=== PATIENT | female | born 1980 | race Two or more races ===

== ENCOUNTER 2022-11-05 14:06 | Outpatient (OUT) | payer MEDICAID, SELFPAY ==
--- NOTE | 2022-11-05 14:19 | US_ITS ---
[address] [address] Patient Name: RICH WHITE MRN: [id number] date: 1980 Sex: F Assigned Patient Location: US Current Patient Location: US Accession/Order Number: [id number] Exam Date: 11/05/2022 14:20 Report Date: 11/05/2022 15:29 At the request of: SHAIKH KATARZYNA Procedure: US abdomen limited EXAM: US abdomen limited HISTORY: Umbilical hernia without obstruction K42.9 COMPARISON: None. TECHNIQUE: Limited ultrasound of the ventral abdomen, paraumbilical region FINDINGS and impression: There is a 2.6 x 2 x 1.1 cm hypoechoic area, just above the umbilicus, likely representing fat-containing subumbilical hernia with the aperture measures 0.9 cm. Electronically authenticated by: AMANDA PULLIAM Date: 11/05/2022 15:29
[2022-11-05 14:48] LABS: Basophils Percent Auto 0.6 % (0.2-2.0); Eosinophils Absolute Auto 0.1 10^3/uL (0.0-0.7); Eosinophils Percent Auto 2.7 % (0.9-7.0); Hematocrit 38.9 % (36.0-48.0); Hemoglobin 12.7 g/dL (12.0-16.0); Immature Granulocytes Abs Auto 0.01 10^3/uL (0.00-0.03); Immature Granulocytes Pct Auto 0.2 % (0.0-0.5); Lymphocytes Absolute Auto 1.7 10^3/uL (1.2-3.8); Lymphocytes Percent Auto 34.8 % (20.5-60.0); Mean Corpuscular HGB Conc 32.6 g/dL (29.9-35.2); Mean Corpuscular Hemoglobin 29.2 pg (26.7-34.0); Mean Corpuscular Volume 89.4 fL (81.0-99.0); Mean Platelet Volume 10.7 fL (9.5-13.5); Monocytes Absolute Auto 0.3 10^3/uL (0.3-0.8); Neutrophils Absolute Auto 2.7 10^3/uL (1.4-6.5); Neutrophils Percent Auto 54.7 % (43.0-75.0); Platelet Count 164 10^3/uL (150-450); Red Blood Count 4.35 10^6/uL (4.20-5.40); Red Cell Distribution Width 12.1 % (11.0-15.0); White Blood Count 4.9 10^3/uL (4.0-11.0)
[2022-11-05 15:45] LABS: Estimated Average Glucose 108 mg/dL; Glycohemoglobin A1C 5.4 % (4.5-6.2)
[2022-11-05 16:08] LABS: Alanine Aminotransferase 130 U/L (14-59); Albumin Globulin Ratio 0.9; Alkaline Phosphatase 64 U/L (46-116); Anion Gap 10.3; Aspartate Amino Transferase 75 U/L (15-37); BUN Creatinine Ratio 23.9; Bilirubin Total 0.3 mg/dL (0.2-1.0); Calcium 9.2 mg/dL (8.5-10.1); Carbon Dioxide 29.9 mmol/L (21.0-32.0); Chloride 104 mmol/L (98-107); Chol HDL Ratio 3.1; Cholesterol 168 mg/dL (<=200); Estimated GFR (African America >60 (>=60); Estimated GFR (Non-African Ame >60 (>=60); Globulin 4.3 g/dL; Glucose 94 mg/dL (74-106); HDL Cholesterol 55 mg/dL (40-60); LDL Cholesterol Calculated 99.4 mg/dL; Potassium 4.2 mmol/L (3.5-5.1); Sodium 140 mmol/L (136-145); Thyroid Stimulating Hormone 1.437 uIU/mL (0.358-3.740); Total Protein 8.3 g/dL (6.4-8.2); Triglycerides 68 mg/dL (<=150); VLDL CHOLESTEROL 13.6 mg/dL
[2022-11-06 04:07] LABS: Triiodothyronine (T3) 162 ng/dL (71-180)
== END 2022-11-05 14:07 | disposition home or self-care (01) ==
LOC: US 14:13
PROVIDERS: PCP Internal Medicine; Visit Provider Internal Medicine
DX: K42.9 Umbilical hernia without obstruction or gangrene (principal); Z13.1 Encounter for screening for diabetes mellitus; F41.1 Generalized anxiety disorder; F11.91 Opioid use, unspecified, in remission; K21.9 Gastro-esophageal reflux disease without esophagitis; Z13.220 Encounter for screening for lipoid disorders
CPT/HCPCS: 36415; 76705; 80053; 80061; 83036; 84436; 84443; 84480; 85025

== ENCOUNTER 2023-11-19 07:28 | Outpatient (OUT) | payer MEDICAID, SELFPAY | END 2023-11-19 07:29 | disposition home or self-care (01) | LOC: PST 07:28 | PROVIDERS: PCP Internal Medicine; Visit Provider Surgery | DX: Z01.818 Encounter for other preprocedural examination (principal); R10.9 Unspecified abdominal pain; K21.9 Gastro-esophageal reflux disease without esophagitis; K62.5 Hemorrhage of anus and rectum ==

== ENCOUNTER 2023-11-26 08:01 | Day surgery (SDC) | payer MEDICAID, SELFPAY ==
--- OUTSIDE RECORDS SUMMARY | 2023-11-26 08:04 | XMS_ITS | CCD ---
Author Organization [facility] Care Team Providers Care Stationary Boiler Fireman Name Role Phone Fabian Xiao Unavailable Unavailable Mummert, Fabian Unavailable Unavailable Medina, Amolak Hudson Unavailable Unavailable Medina, Amolak Hudson Unavailable Unavailable Medina, Amolak Hudson Unavailable Unavailable Medina, Amolak Hudson Unavailable Unavailable Frank Shrestha Attending Unavailable NONE, XXXX Primary Care Physician Unavailab helga Bush ([facility]), HEAD OF LOSS PREVENTION Kandis Veliz Attending Provider [facility] Primary Care Provider Eleazar ([facility])Kandis Attending Unavailstephani Bush ([facility]), Kandis Veliz [facility]mitting [facility] Unavailable ERICA BROWN Attending Unavailable VISCI, JENNIFER Weston Attending Unavailable VISCI, JENNIFER Weston Referring Unavailable VISCI, JENNIFER Weston Attending Unavailable VISCI, JENNIFER Weston Referring Unavailable VISCI, JENNIFER Weston Attending Unavailable Unavailable Unavailable Unavailable Medications Current Medications Medication Drug Class(es) Dates Sig (Normalized) Sig (Original) amoxicillin 875 mg oral tablet (1 source) Penicillin-class Antibacterial Start: 07-10-2022 End: 07-17-2022 take 1 tablet by mouth twice daily amoxicillin 875 mg Tab 875 mg = 1 tab(s), Oral, BID, X 7 day(s), # 14 tab(s), Refills(s) 0, Pharmacy: [facility], 170, cm, 07/10/22 20:44:00 EDT, Height/Length Dosing, 70.4, kg, 07/10/22 20:44:00 EDT, Weight Dosing Start Date: 07/10/22 Stop Date: 07/17/22 Status: Ordered Suboxone (1 source) Partial Opioid Agonist, Opioid Antagonist Start: 03-07-2019 Suboxone SubLingual, Daily, Refill(s) 0 Start Date: 03/07/19 Status: Ordered 12 hr carBAMazepine 100 mg extended release oral capsule (1 source) Mood Stabilizer Start: 07-10-2022 End: 07-17-2022 take 1 capsule by mouth twice daily carbamazepine 100 mg oral capsule, extended release 100 mg = 1 cap(s), Oral, BID, X 7 day(s), # 14 cap(s), Refills(s) 0, Pharmacy: [facility], 170, cm, 07/10/22 20:44:00 EDT, Height/Length Dosing, 70.4, kg, 07/10/22 20:44:00 EDT, Weight Dosing Start Date: 07/10/22 Stop Date: 07/17/22 Status: Ordered Completed/Discontinued Medications Medication Drug Class(es) Dates Sig (Normalized) Sig (Original) ibuprofen 800 mg oral tablet (1 source) Nonsteroidal Anti-inflammatory Drug Start: 12-16-2020 take 8-10 tablets by mouth every eight hours as needed ibuprofen 800 mg Tab 800 mg = 1 tab(s), Oral, q8hr, PRN Pain 8-10, # 21 tab(s), Refills(s) 0 Start Date: 12/16/20 Status: Ordered Problems Active Problems Problem Classification Problem Date Documented Date Episodic/Chronic Disorders of teeth and jaw (1 source) Disorder of teeth AND/OR supporting structures; Translations: [Other specified disorders of teeth and supporting structures] Onset: 07-10-2022 Episodic Mood disorders (1 source) Mood disorders Onset: 09-13-2016 Other nervous system disorders (1 source) Trigeminal neuralgia; Translations: [Trigeminal neuralgia] Onset: 07-10-2022 Episodic Substance-related disorders (1 source) Smoker 02-12-2016 Chronic Comment on above: Added secondary to d ocumentation in Social History. Unclassified (1 source) Cervicalgia / M54.2(ICD-10) Onset: 09-13-2016 Unclassified (3 sources) Opioid dependence with withdrawal / F11.23(ICD-10) Onset: 09-10-2016 Unclassified (1 source) Psoriasis, unspecified / L40.9(ICD-10) Onset: 09-13-2016 Unclassified (1 source) Dorsalgia, unspecified / M54.9(ICD-10) Onset: 09-13-2016 Unclassified (1 source) Nicotine dependence, unspecified, uncomplicated / F17.200(ICD-10) Onset: 09-13-2016 Unclassified (1 source) Cannabis abuse, uncomplicated / F12.10(ICD-10) Onset: 09-13-2016 Unclassified (1 source) Other chronic pain / G89.29(ICD-10) Onset: 09-13-2016 Unclassified (1 source) Encounter for screening mammogram for malignant neoplasm of breast; Translations: [Encounter for screening mammogram for malignant neoplasm of breast] Onset: 03-20-2023 Past or Other Problems Problem Classification Problem Date Documented Da te Episodic/Chronic Unclassified (1 source) Opioid dependence with withdrawal; Translations: [Opioid dependence with withdrawal] Onset: 09-10-2016 Results Test Name Value Interpretation Reference Range Facility MM screening mammo BI w/CADo n 03-20-2023 MM screening mammo BI w/CAD [facility] [place] [address] [place] [address] Mammography Report Signed Patient: Rich Salinas MR#: [id number] 9 : 1980 Acct:[id number] Age/Sex: 42 / F ADM Date: 03/20/23 Loc: [place] Room: Type: [facility] Attending Dr: Kandis Bush ([facility]) ANDRES Copies to: [facility] Kandis Bush APRN, WHCNP Ordering Provider: Kandis Bush APRN, WHCNP Date of Service: 03/20/23 MM/MM screening mammo BI w/CAD: SCREENING BILATERAL Screening Full Field digital mammogram with 3-D imaging. Full field digital CC and MLO imaging performed. CAD utilized. COMPARISON: 05/04/2003 HISTORY: Annual screening BREAST COMPOSITION: The breast parenchyma is heterogeneously dense. BENIGN BREAST CALCIFICATIONS: Present VASCULAR CALCIFICATIONS: None DEVELOPING ARCHITECTURAL DISTORTION: None DEVELOPING BREAST NODULE: None DEVELOPING MALIGNANT CALCIFICATIONS: None AXILLARY LYMPH NODES: Normal POSTSURGICAL CHANGES: None MM/MM screening mammo BI w/CAD IMPRESSION: No mammographic evidence of malignancy. Routine follow-up recommended in one year. RESULT CODE: 2 Benign Findings(s) DENSITY CODE: 3 (approximately 51-75% glandular) FOLLOW UP: 1YR THE FALSE-NEGATIVE RATE OF MAMMOGRAPHY IS APPROXIMATELY 10%. IMAGING OF A PALPABLE ABNORMALITY MUST BE BASED ON CLINICAL GROUNDS. PATIENT WAS ENTERED INTO A REMINDER SYSTEM WITH A TARGET DUE DATE FOR THE NEXT MAMMOGRAM. Impression dictated by: Serafin Aguila M.D.03/20/2023 4:00 PM Dictation Location: [facility] Transcribed By: [facility] 03/20/23 1600 Dictated By: Serafin Aguila DO 03/20/23 1559 Signed By: 03/20/23 1600 Normal [facility] US transvaginalon 03-20-[address] [facility] [place] [address] Ultrasound Report Signed Patient: Rich Salinas MR#: [id number] 9 : 1980 Acct:[id number] Age/Sex: 42 / F ADM Date: 03/20/23 Loc: [place] Room: Type: [facility] Attending Dr: Kandis Bush ([facility]) ANDRES Ordering Provider: Kandis Bush APRN, WHCNP Date of Service: 03/20/23 US/US pelvic complete: N95.1 ([id number]) US/US transvaginal: N95.1 Copies to: Kandis Bush APRN, WHCNP TRANSABDOMINAL AND TRANSVAGINAL PELVIC ULTRASOUND HISTORY: Left-sided pelvic pain. FINDINGS: The uterus measures 8.5 x 3.6 x 4.3 cm. Heterogeneous myometrium identified. Multiple nabothian cysts present. 16mm hypoechoic structure anterior mid uterus is suspected represent small fibroid. The endometrium has a total combined thickness of 7mm. The RIGHT ovary not visualized LEFT ovary measures 2.6 x 1.9 x 2.4 cm 18 mm anechoic left ovarian cysts cyst. Bilateral ovarian blood flow identified. No free fluid identified. There is no adnexal mass identified. US/US pelvic complete IMPRESSION: 18 mm left ovarian cyst. No free fluid. Nonvisualization of the right ovary. Adequate flow left ovary. Suspect small anterior mid uterine fibroid. Impression dictated by: Serafin Aguila M.D.03/20/2023 4:39 PM Dictation Location: [place] [address] Tech: Ame Scherer Transcribed By: [facility] 03/20/23 1639 Dictated By: Serafin Aguila DO 03/20/23 1636 Signed By: 03/20/23 1639 Normal [facility] Discharge Instructionson Discharge Instructions [id number]:[address] [facility] Consent for Treatmenton 06-12 Consent for Treatment [id number]:[address] [facility] ED Clinical Summaryon 2022 ED Clinical Summary [place] [id number] ED Clinical Summary Person Information Name: RICH SALINAS/[facility] Age: 41 Years : 1980 Sex: Female Language: Burmese PCP: NONE, XXXX Marital Status: Single Phone: [phone] Visit Id: Visit Reason: Facial pain; DENTAL PAIN Speciality: Acuity: 4 Enc Type: Emergency Med Service: Emergency Arrival: 07/10/2022 20:35:39 Discharge: 07/10/2022 21:27:35 LOS: 000 00:52 Checkin: 07/10/2022 20:35:39 Checkout: 07/10/2022 21:27:35 Dispo Type: Home (Routine DC) EVENTS: Event Name Event Status Request Date/Time Start Date/Time Complete Date/Time Arrive Complete 07/10/2022 20:35:39 07/10/2022 20:35:39 07/10/2022 20:35:39 Document Home Meds Request 07/10/2022 20:35:39 Triage Complete 07/10/2022 20:35:39 07/10/2022 20:44:17 07/10/2022 20:44:17 Registration Complete 07/10/2022 20:39:14 07/10/2022 20:39:14 07/10/2022 20:39:14 Reg Complete Request 07/10/2022 20:39:14 Reg Bed Request Complete 07/10/2022 20:39:14 07/10/2022 20:39:14 07/10/2022 20:39:14 Bed Assign Complete 07/10/2022 20:44:24 07/10/2022 20:44:24 07/10/2022 20:44:24 Dr Exam Complete 07/10/2022 20:44:24 07/10/2022 20:53:43 07/10/2022 20:53:43 RN Exam Complete 07/10/2022 20:44:24 07/10/2022 20:51:03 07/10/2022 20:51:03 Registration Request 07/10/2022 20:53:43 Meds Admin Complete 07/10/2022 21:12:46 07/10/2022 21:18:58 Discharge Complete 07/10/2022 21:22:29 07/10/2022 21:27:39 07/10/2022 21:27:39 Transfer Complete 07/10/2022 21:27:39 07/10/2022 21:27:39 07/10/2022 21:27:39 ADDRESS: [address] [place] [phone] PHYS DOC NOTES: MEDICAL INFORMATION: Prescriptions Given: New Medications [facility], [address] [place], [place] [id number], [phone] amoxicillin (amoxicillin 875 mg Tab) 1 Tablets By Mouth 2 times a day for 7 Days. Refills: 0. carbamazepine (carbamazepine 100 mg oral capsule, extended release) 1 Capsules By Mouth 2 times a day for 7 Days. Refills: 0. Medications to Continue with No Changes Other Medications buprenorphine-naloxone (Suboxone) Sublingual every day. ibuprofen (ibuprofen 800 mg Tab) 1 Tablets By Mouth every 8 hours as needed Pain 8-10. Refills: 0. PATIENT EDUCATION INFORMATION: Instructions: Trigeminal Neuralgia Follow up: With: Address: When: [address] [id number] Business (1) In 3 days 07/13/2022 With: Address: When: Erik Menjivar [address] [facility], [place] [address] In 3 days 07/13/2022 DIAGNOSIS: Pain, dental; Trigeminal neuralgia Normal [facility] ED Note-Physicianon 07-11-19 ED Note-Physician Basic Information Time Seen: Frank Shrestha DO 07/10/2022 20:53 Chief Complaint right sided facial pain. states her glands are swollen History of Present Illness HPI: Patient is a 41-year-old female with history of tobacco use who presents to the ED for right facial pain. Patient states this started yesterday has been worsening. She states that she felt like her jaw was swollen but it is improved took ibuprofen at home today. She states that the pain is around her right ear and jaw and her right lower face. She states that she had a flareup like this once before and they thought it was something with her nerve but she is unsure. She denies any fever or chills. She denies any difficulty swallowing. ROS: Pertinent review of systems conducted and is negative except as noted above. Physical exam: General: nontoxic appearing and in no distress HEENT: Mucous membranes moist. TMs clear bilaterally. She has poor dentition throughout. Posterior pharynx is patent. Mild tenderness of the right lower face anterior to the ear Neuro: awake and alert Neck: supple, trachea midline Card: Heart regular rate and rhythm no murmur Resp: Lungs clear to auscultation no wheeze or rhonchi Abd: Soft and nondistended. No tenderness to palpation with no rebound or guarding. Ext: No gross deformity or edema Physical Exam Vitals & Measurements T: 36.5 ?C(Tympanic) HR: 101(Peripheral) RR: 20 BP: 144/87 SpO2: 99% HT: 170 cm WT: 70.4 kg BMI: 24.36 Medical Decision Making MEDICAL DECISION MAKING Number and Complexity of Problems Differential Diagnosis: [] [facility] Data External documents reviewed: N/A My EKG interpretation: Noted in chart if applicable My CT interpretation: N/A My X-ray interpretation: Noted in chart if applicable My Ultrasound interpretation: N/A Decision rules/scores evaluated: N/A Discussed with: N/A Treatment and Disposition ED Course: Patient is well-appearing and in no distress. She has a throbbing pain of her right lower face that I suspect is likely from a trigeminal neuralgia. She does have some globally poor dentition so I think covering her for possible odontogenic source of discomfort with amoxicillin is prudent. We will also start her on the carbamazepine. We will have her follow-up with her primary care physician which will provide her and we will also give her a backup plan of the [facility]. We will give her a dose of both of these medications here tonight until she can get the prescriptions filled tomorrow. Shared decision making: As above Code status: N/A Assessment/Plan Pain, dental (K08.89: Other specified disorders of teeth and supporting structures) Trigeminal neuralgia (G50.0: Trigeminal neuralgia) Orders: amoxicillin, 875 mg = 1 tab(s), Tab, Oral, Once, Stop date 07/10/22 21:12:00 EDT, STAT, Start date 07/10/22 21:12:00 EDT, 07/10/22 21:12:00 EDT carbamazepine, 100 mg = 1 tab(s), Tab-Chew, Oral, Once, Stop date 07/10/22 21:12:00 EDT, STAT, Start date 07/10/22 21:12:00 EDT, 07/10/22 21:12:00 EDT Disposition Plan Discharge Prescription List Prescriptions No active prescription medications Follow-up With When Contact Information [facility] In 3 days 07/13/2022 EDT [address] [place] [address]- Business (1) Additional Instructions: Erik Menjivar In 3 days 07/13/2022 EDT [address] [place] [address]- Additional Instructions: Patient Education Trigeminal Neuralgia Problem List/Past Medical History Ongoing Smoker Historical Tonsillectomy Medications Inpatient amoxicillin 875 mg Tab, 875 mg= 1 tab(s), Oral, Once carBAMazepine 100 mg Chew Tab, 100 mg= 1 tab(s), Oral, Once Home ibuprofen 800 mg Tab, 800 mg= 1 tab(s), Oral, q8hr, PRN Suboxone, SubLingual, Daily Allergies No Known Allergies Social History Substance Abuse - High Risk, 03/07/2019 Current, Cocaine, Marijuana, 03/07/2019 Tobacco - High Risk, 03/07/2019 10 or more cigarettes (1/2 pack or more)/day in last 30 days Tobacco Use:. Cigarettes, 03/07/2019 Current Every Day Smoker, Cigarettes, 09/15/2016 Current, Cigarettes, 30 per day., 02/24/2010 Lab Results No qualifying data available. Diagnostic Results No qualifying data available. Normal [facility] Comment on above: Result Comment: Elec tronically Signed By: Frank Shrestha DO\.br\Date and Time Signed: 07/10/22 21:16 EDT ED Patient Education Noteon 07-10-2022 ED Patient Education Note Neurology Trigeminal Neuralgia Trigeminal neuralgia is a nerve disorder that causes severe pain on one side of the face. The pain may last from a few seconds to several minutes, but it can happen hundreds of times a day. The pain is usually only on one side of the face. Symptoms may occur for days, weeks, or months and then go away for months or years. The pain may return and be worse than before. What are the causes? This condition may be caused by: ? Damage or pressure to a nerve in the head that is called the trigeminal nerve. An attack can be triggered by: ? Talking or chewing. ? Putting on makeup. ? Washing, shaving, or touching your face. ? Brushing your teeth. ? Blasts of hot or cold air. ? Primary demyelinating disorders, such as multiple sclerosis. ? Tumors. What increases the risk? You are more likely to develop this condition if: ? You are 50?60 years old. ? You are female. What are the signs or symptoms? The main symptom of this condition is severe pain in the jaw, lips, eyes, nose, scalp, forehead, and face. How is this diagnosed? This condition is diagnosed with a physical exam. A CT scan or an MRI may be done to rule out other conditions that can cause facial pain. How is this treated? This condition may be treated with: ? Measures to avoid the things that trigger your symptoms. ? Prescription medicines such as anticonvulsants. ? Procedures such as ablation, thermal, or radiation therapy. ? Cognitive or behavioral therapy. ? Complementary therapies such as: ? Gentle, regular exercise or yoga. ? Meditation. ? Aromatherapy. ? Acupuncture. ? Surgery. This may be done in severe cases if other medical treatment does not provide relief. It may take up to one month for treatment to start relieving the pain. Follow these instructions at home: Managing pain ? Learn as much as you can about how to manage your pain. Ask your health care provider if a pain specialist would be helpful. ? Consider talking with a mental health care provider about how to cope with the pain. ? Consider joining a pain support group. General instructions ? Take xupm-llr-jogmppe and prescription medicines only as told by your health care provider. ? Avoid the things that trigger your symptoms. It may help to: ? Chew on the unaffected side of your mouth. ? Avoid touching your face. ? Avoid blasts of hot or cold air. ? Keep all follow-up visits. Where to find more information ? Facial Pain Association: facepain.org Contact a health care provider if: ? Your medicine is not helping your symptoms. ? You have side effects from the medicine used for treatment. ? You develop new, unexplained symptoms, such as: ? Double vision. ? Facial weakness or numbness. ? Changes in hearing or balance. ? You feel depressed. Get help right away if: ? Your pain is severe and is not getting better. ? You develop suicidal thoughts. If you ever feel like you may hurt yourself or others, or have thoughts about taking your own life, get help right away. Go to your nearest emergency department or: ? Call your local emergency services (373 in the [place] ? Call a suicide crisis helpline, such as the National Suicide Prevention Lifeline at or 980 in the [place] This is open 24 hours a day in the [place] ? Text the Crisis Text Line at 214132 (in the [place] Summary ? Trigeminal neuralgia is a nerve disorder that causes severe pain on one side of the face. The pain may last from a few seconds to several minutes. ? This condition is caused by damage or pressure to a nerve in the head that is called the trigeminal nerve. ? Treatment may include avoiding the things that trigger your symptoms, taking medicines, or having procedures or surgery. It may take up to one month for treatment to start relieving the pain. ? Keep all follow-up visits. This information is not intended to replace advice given to you by your health care provider. Make sure you discuss any questions you have with your health care provider. Document Revised: 08/23/2021 Document Reviewed: 07/23/2021 Elsevier Patient Education ? 2022 [employer] Normal [facility] ED Patient Summaryon 023 ED Patient Summary [address] [address] Patient Discharge Instructions Person Information Name: RICH SALINAS Age: 41 Years Arrival Date: 07/10/2022 20:35:39 Discharge Diagnosis: Pain, dental; Trigeminal neuralgia Primary Care Physician: NONE, XXXX Provider Information Primary Provider: Frank Shrestha DO Advanced Jewel[employer] Bearing Maker:Joshua The exam and treatment you received in the Emergency Department were for an urgent problem and are not intended as complete care. It is important that you follow up with a doctor, nurse practitioner, or physician?s assistant food service director for ongoing care. If your symptoms become worse or you do not improve as expected and you are unable to reach your usual health care provider, you should return to the Emergency Department. We are available 24 hours a day. RICH SALINAS has been given the following list of patient education materials, prescriptions and follow-up instructions: Follow-up Instructions: With: Address: When: [employer] [address] [place] [address] [facility] () In 3 days 07/13/2022 With: Address: When: Erik Menjivar [address] [facility] [place] [address] In 3 days 07/13/2022 In the event that this physician does not participate in your insurance network, please consult with your insurance company to find a nearby participating provider. Patient Education Materials: Trigeminal Neuralgia A MESSAGE TO ALL PATIENTS REGARDING OPIOIDS PRESCRIPTION OPIOIDS: WHAT YOU NEED TO KNOW Prescription opioids can be used to help relieve bysfmaeh-eb-runljm pain and are often prescribed following a surgery or injury, or for certain health conditions. These medications can be an important part of the treatment but also come with serious risks. It is important to work with your healthcare provider to make sure you are getting the safest, most effective care. WHAT ARE THE RISKS AND SIDE EFFECTS OF OPIOID USE? Prescription opioids carry serious risks of addiction and overdose, especially with prolonged use. An opioid overdose, often marked by slowed breathing, can cause sudden . The use of prescription opioids can have a number of side effects as well, even when taken as directed: ? Tolerance?meaning you might need to take more of the medication for the same pain relief ? Physical dependence?meaning you have symptoms of withdrawal when a medication is stopped ? Increased sensitivity to pain ? Constipation ? Nausea, vomiting, and dry mouth ? Sleepiness and dizziness ? Confusion ? Depression ? Low levels of testosterone that can result in lower sex drive, energy, and strength ? Itching and sweating RISKS ARE GREATER WITH: ? History of drug misuse, substance use disorder, or overdose ? Mental health conditions (such as depression or anxiety) ? Sleep apnea ? Older age (65 years and older) ? Avoid alcohol while taking prescription opioids. Also, unless specifically advised by your health care provider, medications to avoid include: ? Benzodiazepines (such as Xanax or Valium) ? Muscle relaxants (such as Soma or Flexeril) ? Hypnotics (such as Ambien or Lunesta) ? Other prescription opioids KNOW YOUR OPTIONS Talk to your health care provider about ways to manage your pain that don?t involve prescription opioids. Some of these options may actually work better and have fewer risks and side effects. Options may include: ? Pain relievers such as acetaminophen, ibuprofen, and naproxen ? Some medication that are also used for depression or seizures ? Physical therapy and exercise ? Cognitive behavioral therapy, a psychological, goal-directed approach, in which patients learn how to modify physical, behavioral, and emotional triggers of pain and stress. IF YOU ARE PRESCRIBED OPIOIDS FOR PAIN: ? Never take opioids in greater amounts or more often than prescribed. ? Follow up with your primary health care provider. o Work together to create a plan on how to manage your pain. o Talk about ways to help manage your pain that don?t involve prescription opioids. o Talk about any and all concerns and side effects. ? Help prevent misuse and abuse o Never sell or share prescription opioids. o Never use another person?s prescription opioids. ? Store prescription opioids in a secure place and out of reach of others (this may include visitors, children, friends, and family). ? Safely dispose of unused prescription opioids: Find your community drug take-back program or your pharmacy mail-back program, or flush them down the toilet, following guidance from the Food and Drug Administration (www.fda.gov/Drugs/ResourcesFo rYou). ? Visit www.cdc.gov/drugoverdose to learn about the risks of opioids abuse and overdose. ? If you believe you may be struggling with addiction, tell your health chronic care nurse and (more content not included)... Normal [facility] Discharge Summaryon 05-23-19 18 Discharge Summary MR#: [id number] [facility] [facility] Pt. Name: Rich Salinas Admitted: 04/19/2017 Discharged: 04/19/2017 Date of : 1980 Physician: Bruno Mishra MD DISCHARGE SUMMARYREASON FOR ADMISSION: To detox unit, opioid dependence, and activewithdrawal.HISTORY OF PRESENT ILLNESS: The patient is a 36-year-old female whopresented to [facility] due to concerns about severe opioid dependenceand active withdrawal. The patient reported that she has been abusingOxyContin daily about 4 tablets of 40 mg each orally. The patient reportedthat she has been using it for the last 15 years. The patient reportedmultiple unsuccessful attempts to stop abusing opioids. The patientreported severe problems and withdrawal from opioids. The patient reportedthat most of her time is spent on obtaining the drugs, using her drugs, andrecovering from the effect of drugs. The patient reported that her lifehas been severely and adversely affected by the opioid use including lossof job and apartment recently.HOSPITAL COURSE: The patient was admitted to [facility] Detox Unit on April. Before the patient could be evaluated by the psychiatrist or themedical consult team, the patient decided that she wants to leave againstmedical advice. The patient was counseled in detail by the nursing staffabout risk of leaving against medical advice including overdosing on drugsand possible threat to her life. The patient verbalized her understandingand still wanted to leave against medical advice.DISCHARGE DISPOSITION: The patient left against medical advice and nofollowup treatment planning could be done.Electronically Signed by:Bruno Mishra MD 05/22/2017 10:56 A ARCHANA Herreraate Dict: 05/21/2017/06:54 P/Bruno Mishra MDDate Trans: 05/22/2017 04:41 A/mmoDN_JN:[id number] Normal [facility] Medication Managementon 03-13 Medication Management Entered by Karla Salinas LPN on March 31, 2017 10:30:51 EST From: Karla Salinas LPNTo: [facility] [place]Sent: 03/31/2017 10:30:51 ESTSubject: Medication Management Not Approved: Patient needs appointment escitalopram (ESCITALOPRAM OXALATE 10 MG TABLET) TAKE 1 TABLET BY MOUTH DAILYQty: 30 tab(s) Days Supply: 30 Refills: 0Substitutions Allowed Route To Pharmacy - [facility] [place]Signed by Karla Salinas LPN From: [facility] [place]To: Ninoska GARCIA Fabian DOSent: March 29, 2017 1:43:55 PM CSTSubject: Medication ManagementDue: March 30, 2017 1:43:55 PM PUBLIC HEALTH PROGRAM MANAGER On Hold Pending Signature Drug: escitalopram (Lexapro 10 mg oral tablet) TAKE 1 TABLET BY MOUTH DAILYQuantity: 30 EA Days Supply: 0 Refills: 0Substitutions AllowedNotes from Pharmacy:Dispensed Drug: escitalopram (escitalopram 10 mg oral tablet) TAKE 1 TABLET BY MOUTH DAILYQuantity: 30 tab(s) Days Supply: 30 Refills: 0Substitutions AllowedNotes from Pharmacy: [facility] Outside Recordson 11-19-2016 Outside Records [id number] [facility] Ambulatory Patient Summaryon 10-21-2016 Ambulatory Patient Summary Fabian Xiao DO [address] [place], [place] [phone] Summary For RICH Patel would like to thank you for allowing us to assist you with your healthcare needs. Our entire staff strives to provide an excellent experience for our patients and their families. The following includes information regarding your visit. Age: 36 years Sex: FEMALE : 1980 Address: [address] [place] [address] Home: Work: -- Mobile: -- Primary Care Provider: Fabian Xiao DO Race: White Ethnicity: Not or Language: Burmese Health Plan: 1?MEDICAID PARAMOUNTReason for Visit: Referral and Consult Requests this Visit No Referral or Consults documentedFuture Appointments CARLOS Xiao Phone: -- Fax: -- Appt. Date: 10/31/2016 10:30 AM Scheduled Provider: Fabian Xiao DO Future Orders No future ordersAdditional Goals and Instructions:Follow-Up InformationAllergies No known allergies Vitals and Measurements this Visit (last charted value for your 10/21/2016 visit) Vital Signs This Visit Peripheral Pulse Rate: 88 bpm Systolic Blood Pressure: 150 mmHg Diastolic Blood Pressure: 88 mmHg SpO2: 98 % Measurements This Visit Height: 168.91 cm Weight: 57.6 kg Body Mass Index: 20.19 kg/m2 BSA Measured: 2 [id number] Status 10 or more cigarettes (1/2 pack or more)/day in last 30 daysProcedures Tonsillectomy Problems and Health Issues H/O: drug dependency Mixed anxiety and depressive disorder SmokerDiagnoses This Visit Depression with anxiety (F41.8) H/O irritable bowel syndrome (Z87.19) History of narcotic addiction (F11.21) Smoker (F17.200)Laboratory or Other Results This Visit (last charted value for your 10/21/2016 visit) No Laboratory or Other Results This Visit Medications and Immunizations Administered During This Visit No medication administered during this visit All Known Current Prescriptions and Reported Medications New Prescriptions this Visit Lexapro 10 mg oral tablet (escitalopram) Take 1 tab(s)(10 Milligram) Oral every day, 5 refills authorized Vistaril 25 mg oral capsule (hydrOXYzine) Take 1 cap(25 Milligram) Oral 4 times a day for anxiety, 0 refills authorized Prescriptions No previous prescriptions documented Home Medications No reported medications documentedNew MedicationsDisc[facility], [address] [place] [address], [phone] (Vistaril 25 mg oral capsule) 1 cap Oral 4 times a day as needed for anxiety. Refills: 0.Medications That Were Updated - Follow Below InstructionsDiscount [facility], [address] [place] [address], [phone]: escitalopram (Lexapro 10 mg oral tablet) 1 tab(s) Oral every day. Refills: 5.No Longer Take the Following MedicationsoxyMORphone (Opana ER 40 mg oral tablet, extended release) 1 tab(s) Oral every 12 hours. Normal [facility] Office/Clinic Noteon 017 Office/Clinic Note Patient: RICH SALINAS MRN: 11 : 36 years Sex: FEMALE : [birth year]Associated Diagnoses: Depression with anxiety; H/O irritable bowel syndrome; History of narcotic addiction; SmokerAuthor: Renaldo Xiao DO Nruntojck99/11/17 14:29 EDT establish new patient, reports h/o Drug addiction depression,hair loss,uti, endometriosis simplex,eczema,psoriasis,arthr itis,migraneherpes wants blood work done (Modified)History of Present IllnessLexapro - ran out. Was given this [facility]. Only seen once. Only given one month supply. This helped when she was on it. Sleeps poorly. She had blood work done at when she was in detox at [facility]. Sep 10-. Since then she is on Opana off of the street. 40-80 mg daily. Maximum - was 3-4 40 mg Opana. Has tried IV drugs in her 20's. Thyroid was low, sugar was high. Living in [place] currently. Works at [employer] in [place]. Does not like suboxone - stays up at night. Notes she has been on clonidine in the past, but did not help. Has been on clonazepam which did allow her to stop the Opana, but was given it from a friend. Has high anxiety issues. Has panic attcks. Lexapro does help the panic attacks. The pt is concerned about public information regarding her health. Did not fill the suboxone. Was in [facility] in the past with no help. She has trazodone, but causes palpitations (50 mg).Review of SystemsConstitutional: No fever, No chills, No sweats, No weakness, No fatigue.Eye: No recent visual problem.Ear/Nose/Mouth/Throat: No decreased hearing, No nasal congestion.Respiratory: No shortness of breath, No cough, No sputum production, No wheezing.Cardiovascular: No chest pain, No palpitations, No bradycardia, No tachycardia, No peripheral edema.Gastrointestinal: No nausea, No vomiting, No diarrhea, No constipation, No heartburn.Genitourinary: No dysuria, No hematuria, No change in urine stream.Hematology/Lymphatics: No bruising tendency, No swollen lymph glands.Endocrine: No excessive thirst, No cold intolerance, No heat intolerance.Immunologic: No recurrent fevers, No recurrent infections.Musculoskeletal: No back pain, No neck pain, No joint pain, No muscle pain.Integumentary: No rash, No skin lesion.Neurologic: Alert and oriented X4, No confusion, No numbness, No tingling, No headache.Psychiatric: No anxiety, No depression, Not suicidal.Health StatusAllergies:Allergic Reactions (Selected)No known allergies,Allergies (1) Active ReactionNo known allergies None DocumentedCurrent medications: (Selected)PrescriptionsPrescri bedLexapro 10 mg oral tablet: 1 tab(s) ( 10 mg ), PO, Daily, # 30 tab(s), 5 Refill(s), Pharmacy: [facility], 1 tab(s) PO DailyVistaril 25 mg oral capsule: 1 cap(s) ( 25 mg ), PO, QID, PRN: for anxiety, # 40 cap(s), 0 Refill(s), 11/21/16, Pharmacy: [facility], 1 cap(s) PO QID,PRN:for anxietyDocumented MedicationsDocumentedOpana ER 40 mg oral tablet, extended release: 1 tab(s) ( 40 mg ), PO, q12hr (int), 0 Refill(s)escitalopram 10 mg oral tablet: 0 Refill(s),Home Medications (4) Activeescitalopram 10 mg oral tabletLexapro 10 mg oral tablet 10 mg = 1 tab(s), PO, DailyOpana ER 40 mg oral tablet, extended release 40 mg = 1 tab(s), PO, q12hr (int)Vistaril 25 mg oral capsule 25 mg = 1 cap(s), PRN, PO, QIDProblem list (past medical history):All ProblemsSmoker / IMO 500002 / ConfirmedHistory of narcotic addiction / SNOMED CT 825736972 / ConfirmedDepression with anxiety / SNOMED CT 341825446 / Confirmed,Active Problems (3)Depression with anxietyHistory of narcotic addictionSmokerHistoriesFamily History:Genital organGrandmother (Maternal)CA - Breast cancerGrandmother (Maternal)AnxietyMotherFatherH eart murmurMotherCA - Lung cancerGrandmother (Maternal)Grandfather (Maternal)Grandfather (Paternal)Grandmother (Paternal)Rheumatoid arthritisFatherHypothyroidismG randmother (Maternal)High blood pressureMotherFatherBipolar disorderFatherHeart attackGrandmother (Maternal)DepressionMotherFath erSisterHepatitis CFatherDiverticulitis of colonFatherCardiac arrestGrandmother (Maternal)CHF (congestive heart failure)....Grandfather (Maternal)Kidney stones....SisterPsoriasis....F atherProcedure history:Tonsillectomy (SNOMED CT 253356211).Social HistorySocial & Psychosocial HabitsAlcohol Comment: denies - 10/21/2016 16:15 - Sharlene Rodriguez LPNHome/Lueiqsvmgje55/11/2017 Lives with: IeduwwiqNqhxla08/11/2017 Sexually active: Yes Current partners: 1 Self described orientation: Straight or heterosexual Uses condoms: Yes History of sexual abuse: NoSubstance Abuse10/21/2016 Substance use: Past Type: WsfxnhajqNimzcmf29/11/2017 Smoking tobacco use: 10 or more cigarettes (1/ Smokeless tobacco use: vape.Physical ExaminationVS/MeasurementsVita l Signs10/21/16 14:29 EDT Peripheral Pulse Rate 88 bpm Systolic Blood Pressure 150 mmHg HI Diastolic Blood Pressure 88 mmHg SpO2 98 %, Measurements from flowsheet : Rdzskcuugjvp11/11/17 14:29 EDT Height 168.91 cm Weight 57.6 kg Body Mass Index 20.19 kg/m2 BSA Measured 2 z0Isolvit: Alert and oriented, No acute distress.Eye: Pupils are equal, round and reactive to light, Extraocular movements are intact, Vision unchanged.HENT: Normocephalic, Tympanic membranes are clear, Normal hearing.Neck: Supple, Non-tender, No carotid bruit, No jugular venous distention, No thyromegaly.Respiratory: Lungs are clear to auscultation, Respirations are non-labored, No chest wall tenderness.Cardiovascular: Regular rhythm, No murmur, No gallop, Normal peripheral perfusion.Gastrointestinal: Soft, Non-tender, Normal bowel sounds, No organomegaly.Musculoskeletal: Normal range of motion, Normal strength.Integumentary: Warm, Moist, No rash.Neurologic: Alert, Oriented, Cranial Nerves II-XII are grossly intact.Cognition and Speech: Oriented, Speech clear and coherent.Psychiatric: Cooperative, Anxious, speaking rapidly, Not appropriate mood & affect.Health MaintenanceHealth Maintenance Pending (in the next year) Due Influenza Vaccine due 10/11/16 and every 1 year(s) Alcohol Misuse Screen (Female) due 10/21/16 and every 1 year(s) Cervical Cancer Screen (if sexually active) due 10/21/16 and every 3 year(s) Depression Screen (Female) due 10/21/16 and every 1 year(s) Family/Intimate Partner Violence Screen (Female) due 10/21/16 and every 1 year(s) Folic Acid Supplementation due 10/21/16 One-time only HIV Screen (if sexually active) (Female) due 10/21/16 Variable frequency Lipid Disorders Screen (Female) due 10/21/16 and every 1 year(s) STD Counseling (if sexually active) (Female) due 10/21/16 and every 1 year(s) Syphilis Screen (if sexually active) (Female) due 10/21/16 and every 1 year(s) Tetanus due 10/21/16 and every 10 year(s) Tobacco Use Screen (Female) due 10/21/16 and every 1 year(s) Type 2 Diabetes Mellitus Screen (Female) due 10/21/16 and every 1 year(s) Satisfied (in the past 1 year) Satisfied Body Mass Index Check (Female) on 10/21/16. Satisfied by Sharlene Rodriguez LPN High Blood Pressure Screen (Female) on 10/21/16. Satisfied by Sharlene Rodriguez LPNImpression and PlanDiagnosisDepression with anxiety (SIW00-BM F41.8).H/O irritable bowel syndrome (VAV39-CP Z87.19).History of narcotic addiction (XPH43-YA F11.21).Smoker (NMA96-DX F17.200).OrdersOrders (Selected)Outpatient [id number] Office visit - new pt, level 3: 10/21/16 16:41:00 EDT, Qty: 1PrescriptionsPrescribedLexapr o 10 mg oral tablet: 1 tab(s) ( 10 mg ), PO, Daily, # 30 tab(s), 5 Refill(s), Pharmacy: [facility], 1 tab(s) PO DailyVistaril 25 mg oral capsule: 1 cap(s) ( 25 mg ), PO, QID, PRN: for anxiety, # 40 cap(s), 0 Refill(s), 11/21/16, Pharmacy: [facility], 1 cap(s) PO QID,PRN:for anxietyDocumented MedicationsDocumentedescitalop abbe 10 mg oral tablet: 0 Refill(s).1. Narcotic addiction Patient remains on Opana at approximately 60 mg daily which she snorts. We discussed repeating a inpatient detoxification. Options include [facility] with a phone #[phone], the [facility] in [place] with phone #[phone], [facility] with phone number [phone], and in [place] the [facility] with phone number [phone] patient will then need to be prepared to use either Suboxone or naltrexone for chronic withdrawal therapy.2. Depression with anxiety?we'll renew Lexapro 10 mg by mouth daily and add Vistaril 25 mg every 6 hours when necessary for anxiety. The patient was told she cannot use benzodiazepines due to her narcotic addiction and drug drug interaction.3. Tobacco use disorder?will eventually of course like to get her off these as well.4. History of irritable bowel syndrome?markedly worsened by narcotics which cause constipation. She is on Colace.Recheck one week[Electronically Signed on: 10/21/2016 16:42 EDT] Mummert DO, Fabian[Verified on: 10/21/2016 16:42 EDT] Mummert DO, Fabian Normal [facility] THYROID STIM IMMUNOGLOBon THYROID STIM IMMUNOGLOB Canceled Normal [facility] Comment on above: Order Comment: TEST THYROID STIM IMMUNOGLOB WAS CANCELLED, 09/14/2016 08:20 PATIENTDISCHARGED. Performed By: #### A LC ####[facility], [place] [phone] THYROXINE,FREEon 09-14-2016 THYROXINE,FREE Canceled Normal [facility] Comment on above: Order Comment: TEST THYROXINE,FREE WAS CANCELLED, 09/14/2016 08:20 PATIENT DISCHARGED. Result Comment: Thyr oxine Free testing is performed using different testing methodology at [facility] than at other [facility]. Direct result comparisons should only be made within the same method. Patients receiving more than 5 mg/day of biotin may have interference in test results. A sample should be taken no sooner than eight hours after previous dose. Performed By: #### A LC ####[facility], [place] [phone] Discharge Summaryon 09-14-19 17 Discharge Summary Send Summary:Dischar ge Summary Providers:Provider Role Provider Name? Referring Micheline Medina? Attending Cyndi Prieto? Consulting Erik Scott? Primary Required, No PCPNote Recipients: RosemaryErik campbell, [facility]:Summary:Admission Date: .10-Sep-2016 14:29:00Discharge Date: 18-Qqw-3111Xlzwcmbxf Physician at Discharge: Jayjay Prieto Reason: Opioid WithdrawlFinal Discharge Diagnoses: Acute opioid withdrawalProcedures: NoneCondition at Discharge: SatisfactoryDisposition at Discharge: .HomeVital Signs: T P R BP RpS8Cjkmn 37 79 16 125/76 100%Date/Time 09/13 11:44 09/13 11:44 09/13 11:44 09/13 11:44 09/13 11:44Range (37C - 37.6C ) (63 - 85 ) (16 - 18 ) (112 - 125 )/ (70- 76 ) (99% -100% )Highest temp of 37.6 C was recorded at 09/12 16:26Physical Exam:Constitutional: Well developed, awake/alert/oriented x3, mild distress, alertand cooperativeEyes: PERRL, EOMI, clear scleraENMT: mucous membranes moist, no apparent injury, no lesions seenHead/Neck: Neck supple, no apparent injury, thyroid without mass or tenderness,No JVD, trachea midline, no bruitsRespiratory/Thorax: Patent airways, CTAB, normal breath sounds with good chestexpansion, thorax symmetricCardiovascular: Regular, rate and rhythm, no murmurs, 2+ equal pulses of theextremities, normal S 1and S 2Gastrointestinal: Nondistended, soft, non-tender, no rebound tenderness orguarding, no masses palpable, no organomegaly, +BS, no bruitsMusculoskeletal: ROM intact, no joint swelling, normal strengthExtremities: normal extremities, no cyanosis edema, contusions or wounds, noclubbingNeurological: alert and oriented x3, intact senses, motor, response andreflexes, normal strengthLymphatic: No significant lymphadenopathyPsychological: Agitated otherwise Appropriate mood and behaviorHospital Course:36-year-old female with past medical history of opioid abuse with snortingopana, depression, psoriasis, chronic back pain, neck pain, elbow pain, kneepain, tobacco abuse, marijuana use, who came to the hospital secondary tonausea. Patient admits to using 80 mg a day of Opana, which she snorts. Shealso occasionally uses marijuana. During her stay, she initially scored a COWSof 18 but has been stable between 4-10. She has been doing well with Naloxoneand hydroxyzine. At one point she expressed desire to jump into both eyes tthewindow. Psychiatry was consulted but deemed patient not suicidal. Her homeLexparo was restarted. She will need outpatient rehab. Of note her TSH wasslightly suppressed She will need outpatient follow up for further thyroidtesting. (TSH 0.30)Discharge Information:and Continuing Care:Discharge Instructions:Please follow up with outpatient rehab and make sure you have follow up withyour primary care doctor for thyroid work up.Follow Up Appointments:Follow-Up Appointment 01: Physician/Dept/Service: Dr. Puckett Reason for Referral: Outpatient follow up Scheduled Date/Time: 13-Sep-2016 01:15 Location: [address] [place] [address] Jqrktfstv Medications: Home Medication rOPINIRole 0.5 mg oral tablet - 1 tab(s) orally 3 times a day pregabalin 100 mg oral capsule - 1 cap(s) orally 3 times a day buprenorphine-naloxone 2 mg-0.5 mg sublingual tablet - 1 tab(s) sublingualevery 12 hours PRN Medication cloNIDine 0.1 mg oral tablet - 1 tab(s) orally every 4 hours, As needed,COWS> 7, as long as SBP > or = to 90 traZODone 50 mg oral tablet - 1 tab(s) orally once (at bedtime), As needed,insomnia methocarbamol 500 mg oral tablet - 1 tab(s) orally every 6 hours, As needed,muscle aches hydrOXYzine pamoate 25 mg oral capsule - 1 cap(s) orally every 6 hours, Asneeded, restlessnessQUEtiapine 25 mg oral tablet - 1 tab(s) orally every 6 hours, As needed,anxietyIssues to Discuss at Follow-up / Goals for Continuing Care:Outpatient rehabLab Results - Pending: NoneRadiology Results - Pending: NoneAttestation:Cosign/Attesta tion:.: .: Electronic Signatures:Cyndi Prieto) (Signed 13-Sep-2016 12:01) Authored: Send Summary, Summary Content, Ongoing Care, AttestationLast Updated: 13-Sep-2016 12:01 by Cyndi Prieto) Normal [facility] BASIC METABOLIC PANELon 08-0 Anion gap 10 mmol/L Normal 10 - 20 [facility] Comment on above: Performed By: #### P TINR ####[facility], [place] [phone] Bicarbonate (HCO3) 30 mmol/L Normal 21 - 32 [facility] Comment on above: Performed By: #### P TINR ####[facility], [place] [phone] Calcium 9.0 mg/dL Normal 8.6 - 10.3 [facility] Comment on above: Performed By: #### P TINR ####[facility], [place] [phone] Chloride 105 mmol/L Normal 98 - 107 [facility] Comment on above: Performed By: #### P TINR ####[facility], [place] [phone] Creatinine 0.63 mg/dL Normal 0.50 - 1.05 [facility] Comment on above: Performed By: #### P TINR ####[facility], [place] [phone] eGFR (non-black) mL/min/{1.73_m2} Normal >60 [facility] Comment on above: Result Comment: CALC ULATIONS OF ESTIMATED GFR ARE PERFORMED USING THE MDRD STUDY EQUATION FOR THE IDMS-TRACEABLE CREATININE METHODS. CLIN CHEM 2007;53:766-72 Performed By: #### P TINR ####[facility], [place] [phone] Glucose mass conc 79 mg/dL Normal 74 - 99 [facility] Comment on above: Performed By: #### P TINR ####[facility], [place] [phone] Potassium molar conc 3.0 mmol/L Low 3.5 - 5.3 [facility] Comment on above: Performed By: #### P TINR ####[facility], [place] [phone] Sodium 142 mmol/L Normal 136 - 145 [facility] Comment on above: Performed By: #### P TINR ####[facility], [place] [phone] Urea nitrogen 11 mg/dL Normal 6 - 23 [facility] Comment on above: Performed By: #### P TINR ####[facility], [place] [phone] CBCon 09-12-2016 Erythrocyte distribution width Auto Ratio (RBC) 13.5 % Normal 11.5 - 14.5 [facility] Comment on above: Performed By: #### P TINR ####[facility], [place] [phone] Erythrocytes (RBC) 3.86 x10E12/L Low 4.00 - 5.20 [facility] Comment on above: Performed By: #### P TINR ####[facility], [place] [phone] Hematocrit (HCT) 33.4 % Low 36.0 - 46.0 [facility] Comment on above: Performed By: #### P TINR ####[facility], [place] [phone] Hemoglobin mass conc (Bld) 11.1 g/dL Low 12.0 - 16.0 [facility] Comment on above: Performed By: #### P TINR ####[facility], [place] [phone] MCHC mass conc (RBC) 33.2 g/dL Normal 32.0 - 36.0 [facility] Comment on above: Performed By: #### P TINR ####[facility], [place] [phone] MCV 87 fL Normal 80 - 100 [facility] Comment on above: Performed By: #### P TINR ####[facility], [place] [phone] Platelets 186 10*3/uL Normal 150 - 450 [facility] Comment on above: Performed By: #### P TINR ####[facility], [place] [phone] WBC (Leukocytes) 6.3 10*3/uL Normal 4.4 - 11.3 [facility] Comment on above: Performed By: #### P TINR ####[facility], [place] [phone] TSHon 09-12-2016 Thyroid stimulating hormone (TSH) 0.30 m[IU]/L Low 0.44 - 3.98 [facility] Comment on above: Result Comment: TSH testing is performed using different testing methodology at [facility] than at other [facility]. Direct result comparisons should only be made within the same method. Performed By: #### P TINR ####[facility] [facility] [phone] DRUG SCREEN,URINEon 09-12-19 17 COCAINE METABOLITE Negative Normal NEGATIVE [facility] Comment on above: Result Comment: CUTO FF LEVEL: 150 NG/ML Bioinformatics Research Technician drug: Benzoylecgonine(cocaine metabolite) Performed By: #### P TINR ####[facility] [phone] DRUG SCREEN COMMENT SEE BELOW Normal [facility] Comment on above: Result Comment: POSI TIVE CUTOFFS ARE BASED ON REACTIVITY WITH A DETECTIVE YOUTH BUREAU MEMBER OF DRUG CLASS. MEMBERS OF THE SAME CLASS OF DRUG MAY HAVE DIFFERING REACTIVITY WITH THE ASSAY AND THEREFORE MAY NEED TO BE PRESENT IN HIGHER CONCENTRATIONS TO GENERATE A POSITIVE RESULT. THESE TOXICOLOGY SCREENS PROVIDE UNCONFIRMED ANALYTICAL RESULTS SUITABLE FOR CLINICAL MANAGEMENT. A POSITIVE QUALITATIVE RESULT DOES NOT INDICATE OR MEASURE INTOXICATION. A SEPARATE ORDER IS REQUIRED IF CONFIRMATORY TESTING IS REQUESTED. Performed By: #### P TINR ####[facility] [phone] OXYCODONE Positive Abnormal NEGATIVE [facility] Comment on above: Result Comment: CUTO FF LEVEL:100 NG/ML Bioinformatics Research Technician drug: Oxycodone This test will accurately detect both oxycodone and oxymorphone. Performed By: #### P TINR ####[facility], [place] [phone] PCP Negative Normal NEGATIVE [facility] Comment on above: Result Comment: CUTO FF LEVEL: 25 NG/ML Bioinformatics Research Technician drug: Phencyclidine(PCP) Cross-reactivity has been reported with dextromethorphan. Performed By: #### P TINR ####[facility] [phone] URINE BARBITURATES Negative Normal NEGATIVE [facility] Comment on above: Result Comment: CUTO FF LEVEL:200 NG/ML Bioinformatics Research Technician drug: Secobarbital Performed By: #### P TINR ####[facility], [place] [phone] Urine, amphetamines presence Negative Normal NEGATIVE [facility] Comment on above: Result Comment: CUTO FF LEVEL: 500 NG/ML Bioinformatics Research Technician drug: d-Methamphetamine Cross-reactivity has been reported with high concentrations of the following drugs: buproprion, chloroquine, chlorpromazine, ephedrine, mephentermine, fenfluramine, phentermine, phenylpropanolamine, pseudoephedrine, and propranolol. Performed By: #### P TINR ####[facility] [phone] Urine, benzodiazepines presence Negative Normal NEGATIVE [facility] Comment on above: Result Comment: CUTO FF LEVEL:200 NG/ML Bioinformatics Research Technician drug: Lormetazepam Performed By: #### P TINR ####[facility] [phone] Urine, cannabinoids presence Positive Abnormal NEGATIVE [facility] Comment on above: Result Comment: CUTO FF LEVEL:50 NG/ML Bioinformatics Research Technician dru39-yuw-pyqqt1-THC-9carboxylic acid Performed By: #### P TINR ####[facility], [place] [phone] Urine, methadone presence Negative Normal NEGATIVE [facility] Comment on above: Result Comment: CUTO FF LEVEL: 150 NG/ML Bioinformatics Research Technician drug: Methadone The metabolite S-bnzwm-eirjawhszttlnn (LAAM) is not detected by this method in concentrations that would be found in the urine of patients on LAAM therapy. Performed By: #### P TINR ####[facility], [place] [phone] Urine, opiates presence Negative Normal NEGATIVE [facility] Comment on above: Result Comment: CUTO FF LEVEL: 300 NG/ML Bioinformatics Research Technician Drug: Morphine This assay shows poor reactivity with synthetic opioids such as oxycodone and fentanyl. Cross-reactivity has been reported at high doses of meperidine. Performed By: #### P TINR ####[facility], [place] [phone] HEPATITIS PANEL,ACUTE (HCFA) on 09-11-2016 HEP.B SURFACE AG NONREACTIVE Normal NONREACTIVE [facility] Comment on above: Result Comment: Brisa ents receiving more than 5 mg/day of biotin may have interference in test results. A sample should be taken no sooner than eight hours after previous dose. Contact [phone] for additional information. Performed By: #### P TINR ####[facility], [place] [phone] HEPATITIS A AB-IGM NON-REACTIVE Normal NONREACTIVE [facility] Comment on above: Result Comment: Brisa ents receiving more than 5 mg/day of biotin may have interference in test results. A sample should be taken no sooner than eight hours after previous dose. Contact [phone] for additional information. Performed By: #### P TINR ####[facility], [place] [phone] HEPATITIS B CORE AB,IGM NON-REACTIVE Normal NONREACTIVE [facility] Comment on above: Result Comment: Brisa ents receiving more than 5 mg/day of biotin may have interference in test results. A sample should be taken no sooner than eight hours after previous dose. Contact [phone] for additional information. Performed By: #### P TINR ####[facility], [place] [phone] HEPATITIS C AB NON-REACTIVE Normal NONREACTIVE [facility] Comment on above: Result Comment: Brisa ents receiving more than 5 mg/day of biotin may have interference in test results. A sample should be taken no sooner than eight hours after previous dose. Contact [phone] for additional information. Performed By: #### P TINR ####[facility], [place] [phone] UA MICROSCOPICon 09-11-2016 Erythrocytes (RBC) 0-5 Normal 0-5 [facility] Comment on above: Performed By: #### P TINR ####[facility], [place] [phone] SQUAMOUS EPITH. CELLS 1+ /HPF Normal [facility] Comment on above: Performed By: #### P TINR ####[facility], [place] [phone] Urine, mucus presence in sediment 2+ /LPF Normal [facility] Comment on above: Performed By: #### P TINR ####[facility], [place] [phone] WBC (Leukocytes) 0-5 Normal 0-5 [facility] Comment on above: Performed By: #### P TINR ####[facility], [place] [phone] URINALYSISon 09-11-2016 Urine, appearance CLEAR Normal CLEAR [facility] Comment on above: Performed By: #### P TINR ####[facility], [place] [phone] Urine, color YELLOW Normal STRAW,YELLOW [facility] Comment on above: Performed By: #### P TINR ####[facility], [place] [phone] Bilirubin (total) MODERATE(2+) Abnormal NEGATIVE [facility] Comment on above: Performed By: #### P TINR ####[facility], [place] [phone] BLOOD Negative Normal NEGATIVE [facility] Comment on above: Performed By: #### P TINR ####[facility], [place] [phone] Glucose mass conc Negative Normal NEGATIVE [facility] Comment on above: Performed By: #### P TINR ####[facility], [place] [phone] pH of blood 5.0 [pH] Normal 5.0 - 8.0 [facility] Comment on above: Performed By: #### P TINR ####[facility], [place] [phone] Protein 30(1+) Abnormal NEGATIVE [facility] Comment on above: Performed By: #### P TINR ####[facility], [place] [phone] Urine, ketones presence Negative Normal NEGATIVE [facility] Comment on above: Performed By: #### P TINR ####[facility], [place] [phone] Urine, leukocyte esterase presence Negative Normal NEGATIVE [facility] Comment on above: Performed By: #### P TINR ####[facility], [place] [phone] Urine, nitrite presence Negative Normal NEGATIVE [facility] Comment on above: Performed By: #### P TINR ####[facility], [place] [phone] Urine, specific gravity 1.005 Normal 1.005 - 1.035 [facility] Comment on above: Performed By: #### P TINR ####[facility], [place] [phone] Urine, urobilinogen <2.0 Normal 0.0 - 1.9 [facility] Comment on above: Performed By: #### P TINR ####[facility], [place] [phone] ALCOHOLon 09-10-2016 Ethanol Canceled Normal [facility] Comment on above: Order Comment: TEST ALCOHOL WAS CANCELLED, 09/10/2016 16:20 DUPLICATE ORDER See [id number] CANCELLED PER NURSE/DOCTOR. RN - Horace 09/10/2016 16:20. Result Comment: FOR MEDICAL USE ONLY. Performed By: #### A LC ####[facility], [place] [phone] Ethanol mg/dL Normal [facility] Comment on above: Result Comment: FOR MEDICAL USE ONLY..REF VALUES <10 Performed By: #### A LC ####[facility], [place] [phone] CBCon 09-10-2016 Erythrocyte distribution width Auto Ratio (RBC) Canceled Normal [facility] Comment on above: Order Comment: TEST CBC WAS CANCELLED, 09/10/2016 16:20 DUPLICATE ORDER See order [id number] CANCELLED PER NURSE/DOCTOR. RN - Horace 09/10/2016 16:20. Performed By: #### C BC ####[facility], [place] [phone] Erythrocytes (RBC) Canceled Normal [facility] Comment on above: Order Comment: TEST CBC WAS CANCELLED, 09/10/2016 16:20 DUPLICATE ORDER See order [id number] CANCELLED PER NURSE/DOCTOR. RN - Horace 09/10/2016 16:20. Performed By: #### C BC ####[facility], [place] [phone] Hematocrit (HCT) Canceled Normal [facility] Comment on above: Order Comment: TEST CBC WAS CANCELLED, 09/10/2016 16:20 DUPLICATE ORDER See order [id number] CANCELLED PER NURSE/DOCTOR. RN - Horace 09/10/2016 16:20. Performed By: #### C BC ####[facility], [place] [phone] Hemoglobin mass conc (Bld) Canceled Normal [facility] Comment on above: Order Comment: TEST CBC WAS CANCELLED, 09/10/2016 16:20 DUPLICATE ORDER See order [id number] CANCELLED PER NURSE/DOCTOR. RN - Horace 09/10/2016 16:20. Performed By: #### C BC ####[facility], [place] [phone] MCHC mass conc (RBC) Canceled Normal [facility] Comment on above: Order Comment: TEST CBC WAS CANCELLED, 09/10/2016 16:20 DUPLICATE ORDER See order [id number] CANCELLED PER NURSE/DOCTOR. RN - Horace 09/10/2016 16:20. Performed By: #### C BC ####[facility], [place] [phone] MCV Canceled Normal [facility] Comment on above: Order Comment: TEST CBC WAS CANCELLED, 09/10/2016 16:20 DUPLICATE ORDER See order [id number] CANCELLED PER NURSE/DOCTOR. RN - Horace 09/10/2016 16:20. Performed By: #### C BC ####[facility], [place] [phone] Nucleated erythrocytes Canceled Normal [facility] Comment on above: Order Comment: TEST CBC WAS CANCELLED, 09/10/2016 16:20 DUPLICATE ORDER See order [id number] CANCELLED PER NURSE/DOCTOR. RN - Horace 09/10/2016 16:20. Performed By: #### C BC ####[facility], [place] [phone] Platelets Canceled Normal [facility] Comment on above: Order Comment: TEST CBC WAS CANCELLED, 09/10/2016 16:20 DUPLICATE ORDER See order [id number] CANCELLED PER NURSE/DOCTOR. KAIN Vu 09/10/2016 16:20. Performed By: #### C BC ####[facility], [place] [phone] WBC (Leukocytes) Canceled Normal [facility] Comment on above: Order Comment: TEST CBC WAS CANCELLED, 09/10/2016 16:20 DUPLICATE ORDER See order [id number] CANCELLED PER NURSE/DOCTOR. KAIN Vu 09/10/2016 16:20. Performed By: #### C BC ####[facility], [place] [phone] Erythrocyte distribution width Auto Ratio (RBC) 13.5 % Normal 11.5 - 14.5 [facility] Comment on above: Performed By: #### C BC ####[facility], [place] [phone] Erythrocytes (RBC) 4.35 x10E12/L Normal 4.00 - 5.20 [facility] Comment on above: Performed By: #### C BC ####[facility], [place] [phone] Hematocrit (HCT) 37.6 % Normal 36.0 - 46.0 [facility] Comment on above: Performed By: #### C BC ####[facility], [place] [phone] Hemoglobin mass conc (Bld) 12.6 g/dL Normal 12.0 - 16.0 [facility] Comment on above: Performed By: #### C BC ####[facility], [place] [phone] MCHC mass conc (RBC) 33.5 g/dL Normal 32.0 - 36.0 [facility] Comment on above: Performed By: #### C BC ####[facility], [place] [phone] MCV 86 fL Normal 80 - 100 [facility] Comment on above: Performed By: #### C BC ####[facility], [place] [phone] Platelets 238 10*3/uL Normal 150 - 450 [facility] Comment on above: Performed By: #### C BC ####[facility], [place] [phone] WBC (Leukocytes) 7.7 10*3/uL Normal 4.4 - 11.3 [facility] Comment on above: Performed By: #### C BC ####[facility], [place] [phone] COMPREHENSIVE PANELon 2016 Alanine aminotransferase (ALT) Canceled Normal [facility] Comment on above: Order Comment: TEST COMPREHENSIVE PANEL WAS CANCELLED, 09/10/2016 16:20 DUPLICATE ORDER Seeorder [id number] CANCELLED PER NURSE/DOCTOR. RN - Horace 09/10/2016 16:20. Result Comment: Brisa ents treated with Sulfasalazine may generate falsely decreased results for ALT. Performed By: #### C MP ####[facility], [place] [phone] Albumin Canceled Normal [facility] Comment on above: Order Comment: TEST COMPREHENSIVE PANEL WAS CANCELLED, 09/10/2016 16:20 DUPLICATE ORDER Seeorder [id number] CANCELLED PER NURSE/DOCTOR. RN - Horace 09/10/2016 16:20. Performed By: #### C MP ####[facility], [place] [phone] Alkaline phosphatase (ALP) Canceled Normal [facility] Comment on above: Order Comment: TEST COMPREHENSIVE PANEL WAS CANCELLED, 09/10/2016 16:20 DUPLICATE ORDER Seeorder [id number] CANCELLED PER NURSE/DOCTOR. RN - Horace 09/10/2016 16:20. Performed By: #### C MP ####[facility], [place] [phone] Anion gap Canceled Normal [facility] Comment on above: Order Comment: TEST COMPREHENSIVE PANEL WAS CANCELLED, 09/10/2016 16:20 DUPLICATE ORDER Seeorder [id number] CANCELLED PER NURSE/DOCTOR. RN - Horace 09/10/2016 16:20. Performed By: #### C MP ####[facility], [place] [phone] Aspartate aminotransferase (AST) Canceled Normal [facility] Comment on above: Order Comment: TEST COMPREHENSIVE PANEL WAS CANCELLED, 09/10/2016 16:20 DUPLICATE ORDER Seeorder [id number] CANCELLED PER NURSE/DOCTOR. RN - Horace 09/10/2016 16:20. Performed By: #### C MP ####[facility], [place] [phone] Bicarbonate (HCO3) Canceled Normal [facility] Comment on above: Order Comment: TEST COMPREHENSIVE PANEL WAS CANCELLED, 09/10/2016 16:20 DUPLICATE ORDER Seeorder [id number] CANCELLED PER NURSE/DOCTOR. RN - Horace 09/10/2016 16:20. Performed By: #### C MP ####[facility], [place] [phone] Bilirubin (total) Canceled Normal [facility] Comment on above: Order Comment: TEST COMPREHENSIVE PANEL WAS CANCELLED, 09/10/2016 16:20 DUPLICATE ORDER Seeorder [id number] CANCELLED PER NURSE/DOCTOR. RN - Horace 09/10/2016 16:20. Performed By: #### C MP ####[facility], [place] [phone] Calcium Canceled Normal [facility] Comment on above: Order Comment: TEST COMPREHENSIVE PANEL WAS CANCELLED, 09/10/2016 16:20 DUPLICATE ORDER Seeorder [id number] CANCELLED PER NURSE/DOCTOR. KAIN Vu 09/10/2016 16:20. Performed By: #### C MP ####[facility], [place] [phone] Chloride Canceled Normal [facility] Comment on above: Order Comment: TEST COMPREHENSIVE PANEL WAS CANCELLED, 09/10/2016 16:20 DUPLICATE ORDER Seeorder [id number] CANCELLED PER NURSE/DOCTOR. RN - Horace 09/10/2016 16:20. Performed By: #### C MP ####[facility], [place] [phone] Creatinine Canceled Normal [facility] Comment on above: Order Comment: TEST COMPREHENSIVE PANEL WAS CANCELLED, 09/10/2016 16:20 DUPLICATE ORDER Seeorder [id number] CANCELLED PER NURSE/DOCTOR. RN - Horace 09/10/2016 16:20. Performed By: #### C MP ####[facility], [place] [phone] eGFR (non-black) Canceled Normal [facility] Comment on above: Order Comment: TEST COMPREHENSIVE PANEL WAS CANCELLED, 09/10/2016 16:20 DUPLICATE ORDER Seeorder [id number] CANCELLED PER NURSE/DOCTOR. KAIN - Horace 09/10/2016 16:20. Performed By: #### C MP ####[facility], [place] [phone] Result Comment: CALC ULATIONS OF ESTIMATED GFR ARE PERFORMED USING THE MDRD STUDY EQUATION FOR THE IDMS-TRACEABLE CREATININE METHODS. CLIN CHEM 2007;53:766-72 Glucose mass conc Canceled Normal [facility] Comment on above: Order Comment: TEST COMPREHENSIVE PANEL WAS CANCELLED, 09/10/2016 16:20 DUPLICATE ORDER Seeorder [id number] CANCELLED PER NURSE/DOCTOR. KAIN Vu 09/10/2016 16:20. Performed By: #### C MP ####[facility], [place] [phone] Potassium molar conc Canceled Normal [facility] Comment on above: Order Comment: TEST COMPREHENSIVE PANEL WAS CANCELLED, 09/10/2016 16:20 DUPLICATE ORDER Seeorder [id number] CANCELLED PER NURSE/DOCTOR. RN - [employer] 09/10/2016 16:20. Performed By: #### C MP ####[facility], [place] [phone] Protein Canceled Normal [facility] Comment on above: Order Comment: TEST COMPREHENSIVE PANEL WAS CANCELLED, 09/10/2016 16:20 DUPLICATE ORDER Seeorder [id number] CANCELLED PER NURSE/DOCTOR. RN - Fran 09/10/2016 16:20. Performed By: #### C MP ####[facility], [place] [phone] Sodium Canceled Normal [facility] Comment on above: Order Comment: TEST COMPREHENSIVE PANEL WAS CANCELLED, 09/10/2016 16:20 DUPLICATE ORDER Seeorder [id number] CANCELLED PER NURSE/DOCTOR. RN - [employer] 09/10/2016 16:20. Performed By: #### C MP ####[facility], [place] [phone] Urea nitrogen Canceled Normal [facility] Comment on above: Order Comment: TEST COMPREHENSIVE PANEL WAS CANCELLED, 09/10/2016 16:20 DUPLICATE ORDER Seeorder [id number] CANCELLED PER NURSE/DOCTOR. [facility] 09/10/2016 16:20. Performed By: #### C MP ####[facility], [place] [phone] Alanine aminotransferase (ALT) 13 U/L Normal 7 - 45 [facility] Comment on above: Result Comment: Brisa ents treated with Sulfasalazine may generate falsely decreased results for ALT. Performed By: #### C MP ####[facility], [place] [phone] Albumin 4.6 g/dL Normal 3.4 - 5.0 [facility] Comment on above: Performed By: #### C MP ####[facility], [place] [phone] Alkaline phosphatase (ALP) 56 U/L Normal 33 - 110 [facility] Comment on above: Performed By: #### C MP ####[facility], [place] [phone] Anion gap 10 mmol/L Normal 10 - 20 [facility] Comment on above: Performed By: #### C MP ####[facility], [place] [phone] Aspartate aminotransferase (AST) 19 U/L Normal 9 - 39 [facility] Comment on above: Performed By: #### C MP ####[facility], [place] [phone] Bicarbonate (HCO3) 28 mmol/L Normal 21 - 32 [facility] Comment on above: Performed By: #### C MP ####[facility], [place] [phone] Bilirubin (total) 0.2 mg/dL Normal 0.0 - 1.2 [facility] Comment on above: Performed By: #### C MP ####[facility], [place] [phone] Calcium 9.8 mg/dL Normal 8.6 - 10.3 [facility] Comment on above: Performed By: #### C MP ####[facility], [place] [phone] Chloride 105 mmol/L Normal 98 - 107 [facility] Comment on above: Performed By: #### C MP ####[facility], [place] [phone] Creatinine 0.63 mg/dL Normal 0.50 - 1.05 [facility] Comment on above: Performed By: #### C MP ####[facility], [place] [phone] eGFR (non-black) mL/min/{1.73_m2} Normal >60 [facility] Comment on above: Performed By: #### C MP ####[facility], [place] [phone] Result Comment: CALC ULATIONS OF ESTIMATED GFR ARE PERFORMED USING THE MDRD STUDY EQUATION FOR THE IDMS-TRACEABLE CREATININE METHODS. CLIN CHEM 2007;53:766-72 Glucose mass conc 112 mg/dL High 74 - 99 [facility] Comment on above: Performed By: #### C MP ####[facility], [place] [phone] Potassium molar conc 3.9 mmol/L Normal 3.5 - 5.3 [facility] Comment on above: Performed By: #### C MP ####[facility], [place] [phone] Protein 7.5 g/dL Normal 6.4 - 8.2 [facility] Comment on above: Performed By: #### C MP ####[facility], [place] [phone] Sodium 139 mmol/L Normal 136 - 145 [facility] Comment on above: Performed By: #### C MP ####[facility], [place] [phone] Urea nitrogen 10 mg/dL Normal 6 - 23 [facility] Comment on above: Performed By: #### C MP ####[facility], [place] [phone] HCG,BETA-QUANTITATIVEon HCG,BETA-QUANTITA TIVE Canceled Normal [facility] Comment on above: Order Comment: TEST HCG,BETA-QUANTITATIVE WAS CANCELLED, 09/10/2016 16:22 DUPLICATE ORDERSee order [id number] CANCELLED PER NURSE/DOCTOR. KAIN Vu 09/10/2016 16:22. Result Comment: Low- level positive HCG results can be seen in early , in guillermo- or post-menopausal females due to normal pituitary HCG production, or with analytic interference. Repeat testing in 48-72 hours can aid in assessing for as results should double in this time period. FSH measurement is recommended in guillermo- or post-menopausal females as concurrent elevation of FSH can support pituitary production as the source of the HCG elevation.. Total HCG measurement is performed using the Marielle [employer] Access Immunoassay which detects intact HCG and free beta HCG subunit. This test is not indicated for use as a tumor marker. HCG testing is performed using a different test methodology at [facility] than other [facility]. Direct result comparison should only be made within the same method. Performed By: #### P TINR ####[facility], [place] [phone] HCG,BETA-QUANTITA TIVE <2 Normal [facility] Comment on above: Result Comment: Low- level positive HCG results can be seen in early , in guillermo- or post-menopausal females due to normal pituitary HCG production, or with analytic interference. Repeat testing in 48-72 hours can aid in assessing for as results should double in this time period. FSH measurement is recommended in guillermo- or post-menopausal females as concurrent elevation of FSH can support pituitary production as the source of the HCG elevation.. Total HCG measurement is performed using the Marielle [employer] Access Immunoassay which detects intact HCG and free beta HCG subunit. This test is not indicated for use as a tumor marker. HCG testing is performed using a different test methodology at [facility] than other [facility]. Direct result comparison should only be made within the same method.REF VALUESNON FEMALE <5MALES <5 Performed By: #### H CGQU ####[facility], [place] [phone] HEPATITIS PANEL,ACUTE (HCFA) on 09-10-2016 Lab Specimen Source Normal [facility] Comment on above: Performed By: #### P TINR ####[facility], [place] [phone] MAGNESIUMon 09-10-2016 Magnesium 2.01 mg/dL Normal 1.60 - 2.40 [facility] Comment on above: Performed By: #### M G ####[facility], [place] [phone] PHOSPHORUSon 09-10-2016 Phosphate 2.6 mg/dL Normal 2.5 - 4.9 [facility] Comment on above: Result Comment: The performance characteristics of phosphorus testing in heparinized plasma have been validated by the individual laboratory site where testing is performed. Testing on heparinized plasma is not approved by the FDA; however, such approval is not necessary. Performed By: #### P HOS ####[facility], [place] [phone] PT/INRon 09-10-2016 INR Coag RelTime (PPP) Canceled Normal [facility] Comment on above: Order Comment: TEST PT/INR WAS CANCELLED, 09/10/2016 16:20 DUPLICATE ORDER See [id number] CANCELLED PER NURSE/DOCTOR. RN - Horace 09/10/2016 16:20. Performed By: #### P TINR ####[facility], [place] [phone] Prothrombin time (PT) Coag time (PPP) Canceled Normal [facility] Comment on above: Order Comment: TEST PT/INR WAS CANCELLED, 09/10/2016 16:20 DUPLICATE ORDER See [id number] CANCELLED PER NURSE/DOCTOR. RN - Horace 09/10/2016 16:20. Result Comment: NOTE NEW REFERENCE RANGE. Performed By: #### P TINR ####[facility], [place] [phone] INR Coag RelTime (PPP) 1.0 {INR} Normal 0.9 - 1.1 [facility] Comment on above: Performed By: #### P TINR ####[facility], [place] [phone] Prothrombin time (PT) Coag time (PPP) 11.4 s Normal 9.8 - 12.7 [facility] Comment on above: Result Comment: NOTE NEW REFERENCE RANGE. Performed By: #### P TINR ####[facility], [place] [phone] Vital Signs Date Time Vital Sign Value Performing Clinician Maribeli rafa 07-10-2022 20:42-0400 Body temperature 97.7 [degF] Frank Mis Descuentos [facility] 07-10-2022 20:42-0400 Diastolic blood pressure 87 mm[Hg] Frank Mis Descuentos [facility] 07-10-2022 20:42-0400 Heart rate 101 /min [facility] Mis Descuentos [facility] 07-10-2022 20:42-0400 Respiratory rate 20 /min [facility] Mis Descuentos [facility] 07-10-2022 20:42-0400 SaO2% (BldA) [Mass fraction] 99 % Frank Mis Descuentos [facility] 07-10-2022 20:42-0400 Systolic blood pressure 144 mm[Hg] Frank Mis Descuentos [facility] Encounters Encounter Date Encounter Type Care Provider Facility Start: 10-30-2023 End: 10-30-2023 ambulatory JENNIFER A VISCI Not Available Start: 09-18-2023 End: 09-18-2023 ambulatory JENNIFER A VISCI Not Available Start: 07-23-2023 End: 07-23-2023 ambulatory JENNIFER KHAN Not Available Start: 07-22-2023 End: 07-22-2023 ambulatory ERICA Veliz STEPHANIE Not Available Start: 03-20-2023 End: 03-20-2023 ambulatory Kandis Veliz Eleazar (ECC) Facility:[facility] Start: 03-20-2023 End: 03-20-2023 ambulatory Dent [facility] Work Phone: [facility] Work Phone: Start: 03-20-2023 End: 03-20-2023 Patient encounter procedure [facility] Work Phone: [facility] Work Phone: Start: 07-10-2022 End: 07-10-2022 Emergency department patient visit Frank Shrestha Facility:[facility] Start: 07-10-2022 End: 07-10-2022 Emergency department patient visit Frank Shrestha [facility] Start: 10-22-2016 End: 10-22-2016 Ambulatory Fabian Xiao Facility:[facility] Start: 09-10-2016 End: 09-13-2016 Evaluation and management of inpatient Amadonis Medina Facility:[facility] Start: 09-10-2016 Ambulatory Amcaitiek Tristan Medina Fac ility:[facility] Procedures Date Procedure Procedure Detail Performing Clinician Start: 03-20-2023 Pelvic echography [facility] Work Phone: Start: 03-20-2023 Transvaginal echography [employer] [facility] Work Phone: Start: 03-20-2023 Screening [facility]ograph y of bilateral [facility] Work Phone: Tonsillectomy Tonsillectomy Frank Shrestha Payers Date Payer Category Payer Self-pay [id number] 2022 Medicaid [id number] 2016 Unknown [id number] 1980 Unknown [id number] [id number] 1978 Unknown [id number] [id number] 1978 Unknown [id number] 2.16.84 [id number] 1978 Unknown [id number] 2.16.84 [id number] 1978 Unknown [id number] 2.16.84 [id number] Medicaid [id number] Unknown [id number] 2.16.8 [id number] Social History Date Type Detail Facility Tobacco smoking stat [facility] Unknown if ever smoked [facility] Start: 1980 Sex Assigned At Female F [facility] Start: 03-07-2019 Tobacco smoking status Heavy t obacco smoker (finding) [facility] Comment on above: 1 ppd smoker Sex Assigned At Female [facility] Goals Date Patient Goal Desired Activity /State Functional Status Date Assessment Result Facility 07-10-2022 Functional Status N/A [facility] Hospital Discharge instructions 07-10-2022 Note Date & Type Note Facility 07-10-2022 Hospital Discharg e instructions Patient Education 07/10/2022 21:27:40 Trigeminal Neuralgia Trigeminal Neuralgia Trigeminal neuralgia is a nerve disorder that causes severe pain on one side of the face. The pain may last from a few seconds to several minutes, but it can happen hundreds of times a day. The pain is usually only on one side of the face. Symptoms may occur for days, weeks, or months and then go away for months or years. The pain may return and be worse than before. What are the causes? This condition may be caused by: Damage or pressure to a nerve in the head that is called the trigeminal nerve. An attack can be triggered by: ?Talking or chewing. ?Putting on makeup. ?Washing, shaving, or touching your face. ?Brushing your teeth. ?Blasts of hot or cold air. Primary demyelinating disorders, such as multiple sclerosis. Tumors. What increases the risk? You are more likely to develop this condition if: You are 50 60 years old. You are female. What are the signs or symptoms? The main symptom of this condition is severe pain in the jaw, lips, eyes, nose, scalp, forehead, and face. How is this diagnosed? This condition is diagnosed with a physical exam. A CT scan or an MRI may be done to rule out other conditions that can cause facial pain. How is this treated? This condition may be treated with: Measures to avoid the things that trigger your symptoms. Prescription medicines such as anticonvulsants. Procedures such as ablation, thermal, or radiation therapy. Cognitive or behavioral therapy. Complementary therapies such as: ?Gentle, regular exercise or yoga. ?Meditation. ?Aromatherapy. ?Acupuncture. Surgery. This may be done in severe cases if other medical treatment does not provide relief. It may take up to one month for treatment to start relieving the pain. Follow these instructions at home: Managing pain Learn as much as you can about how to manage your pain. Ask your health care provider if a pain specialist would be helpful. Consider talking with a mental health care provider about how to cope with the pain. Consider joining a pain support group. General instructions Take ocjy-wlp-inktcdw and prescription medicines only as told by your health care provider. Avoid the things that trigger your symptoms. It may help to: ?Chew on the unaffected side of your mouth. ?Avoid touching your face. ?Avoid blasts of hot or cold air. Keep all follow-up visits. Where to find more information Facial Pain Association: facepain.org Contact a health care provider if: Your medicine is not helping your symptoms. You have side effects from the medicine used for treatment. You develop new, unexplained symptoms, such as: ?Double vision. ?Facial weakness or numbness. ?Changes in hearing or balance. You feel depressed. Get help right away if: Your pain is severe and is not getting better. You develop suicidal thoughts. If you ever feel like you may hurt yourself or others, or have thoughts about taking your own life, get help right away. Go to your nearest emergency department or: Call your local emergency services (291 in the [place] Call a suicide crisis helpline, such as the National Suicide Prevention Lifeline at or 651 in the [place] This is open 24 hours a day in the [place] Text the Crisis Text Line at 184139 (in the [place] Summary Trigeminal neuralgia is a nerve disorder that causes severe pain on one side of the face. The pain may last from a few seconds to several minutes. This condition is caused by damage or pressure to a nerve in the head that is called the trigeminal nerve. Treatment may include avoiding the things that trigger your symptoms, taking medicines, or having procedures or surgery. It may take up to one month for treatment to start relieving the pain. Keep all follow-up visits. This information is not intended to replace advice given to you by your health care provider. Make sure you discuss any questions you have with your health care provider. Document Revised: 08/23/2021 Document Reviewed: 07/23/2021 [employer] Patient Education 2022 [employer]. Follow Up Care 07/10/2022 20:36:57 With:[employer] Address: [address] [place] [address]- Business (1) When:07/13/2022 21:14:03 With:Erik Menjivar Address: [address] [place] [address]- When:07/13/2022 21:14:00 [facility] Evaluation + Plan note 07-10-2022 Note Date & Type Note Facility 07-10-2022 Evaluation + Plan note Extrac rodrick from: Title:ED Note Author:Frank Shrestha DO Date :07/10/22 Pain, dental (K08.89: Other specified disorders of teeth and supporting structures) Trigeminal neuralgia (G50.0: Trigeminal neuralgia) Orders: amoxicillin, 875 mg = 1 tab(s), Tab, Oral, Once, Stop date 07/10/22 21:12:00 EDT, STAT, Start date 07/10/22 21:12:00 EDT, 07/10/22 21:12:00 EDT carbamazepine, 100 mg = 1 tab(s), Tab-Chew, Oral, Once, Stop date 07/10/22 21:12:00 EDT, STAT, Start date 07/10/22 21:12:00 EDT, 07/10/22 21:12:00 EDT [facility] Evaluation note Note Date & Type Note Facility Evaluation note No assessment information availa [facility] Work Phone: Hospital course Narrative Note Date & Type Note Facility Hospital course Narrative No data available for this section [facility] Progress note Note Date & Type Note Facility Progress note No data available for this section [facility] Summary Purpose Family History No Family History Records FoundNo Family History Records FoundNo Family History Records FoundNo Family History Records FoundNo Family History Records FoundNo Family History Records Found Advance Directives No Advanced Directives Records Found Advance Directive Response Recorded Date/ Time Advance Directives No August 20 1:53pm Assessments No Assessments Information Available Chief Complaint and Reason for Visit Chief Complaint Z12.31 Additional Source Comments INFORMATION SOURCE (unrecogn ized section and content) DATE CREATED AUTHOR 07/31/2017 [facility] DATE CREATED AUTHOR AUTHOR'S ORGANIZ ATION 08/01/2017 [facility] DATE CREATED AUTHOR AUTHOR'S ORGANIZ ATION 08/06/2017 [facility] DATE CREATED AUTHOR AUTHOR'S ORGANIZ ATION 07/20/2022 [facility] DATE CREATED AUTHOR AUTHOR'S ORGANIZ ATION 03/24/2023 [facility] DATE CREATED AUTHOR AUTHOR'S ORGANIZ ATION 11/02/2023 [facility] EPIC Care Teams (unrecognized sec tion and content) Team Status: Active Member Role Status Dates [facility] Provider Active Team Status: Inactive Member Role Status Dates Kandis Bush ([facility]) , HEAD OF LOSS PREVENTION Attending Provider Active Start: March 20, 2023 End: March 20, 2023 [facility] Active Start: March 20, 2023 End: March 20, 2023 Goals (unrecognized section and content) Goals may be documented in a n alternate section FOR RECORDS PERTAINING TO PATIENTS WHO ARE OR HAVE BEEN ENROLLED IN A CHEMICAL DEPENDENCY/SUBSTANCEABUSE PROGRAM, SOME INFORMATION MAY BE OMITTED. This clinical summary was aggregated from multiple sources. Caution should be exercised in using it in the provision of clinical care. This summary normalizes information from multiple sources, and as a consequence, information in this document may materially change the coding, format and clinical context of patient data. In addition, data may be omitted in some cases. CLINICAL DECISIONS SHOULD BE BASED ON THE PRIMARY CLINICAL RECORDS. [employer] [facility]. provides no warranty or guarantee of the accuracy or completeness of information in this document.
--- NOTE | 2023-11-26 08:13 | PM.GSPRC ---
Date of procedure: 11/26/23 Indications for Procedure: GERD; abdominal pain; rectal bleeding Pre-op diagnosis: GERD; Abdominal pain; rectal bleeding Post-op diagnosis: other (Esophagitis at GE junction; normal stomach rule out gastritis; inadequate bowel prep unable to get past sigmoid colon will need to return at later date) Procedure: Incomplete colonoscopy to sigmoid colon due to poor bowel prep EGD with biopsy antrum, duodenum, distal esophagus Findings: Esophagitis; tyler Anesthesia: MAC Surgeon: Paul Templeton Procedure Summary: PROCEDURE: The patient was taken to the Endoscopy Suite, placed in the left lateral recumbent position, given IV sedation as above. The Olympus EGD scope was advanced under direct visualization into the posterior pharynx esophagus into the stomach and through the pylorus into the first second third and fourth portions of the duodenum which were completely normal. There were no polyps tumors ulcers noted. Might have been inflammation in the first part of the duodenum and biopsies were taken. The scope was returned to the stomach retroflexed on itself look at the GE junction which was normal. Random biopsies of the antrum were taken to rule out H. pylori and gastritis and hemostasis was maintained. The scope was then withdrawn to the distal esophagus where she has mild esophagitis at about 40 cm. Biopsies were taken. Hemostasis maintained the rest of the esophagus was completely normal. A rectal digital exam was performed. The sphincter tone was found to be normal. No rectal masses were appreciated. The Olympus video colonoscope was advanced under direct visualization to the rectum, sigmoid colon but I could not go any further due to stool and a poor bowel prep. I could not get past that stool. Patient will need to return at a later date and have 2 days of clear liquids and a different bowel prep. The scope was slowly withdrawn with air being desufflated as it was withdrawn. The rectum and proximal sigmoid colon were the only thing seen and no polyps tumors or diverticuli were noted but she had a large amount of stool in the sigmoid colon which could not be traversed. This was an incomplete colonoscopy. It will need to be repeated within a month. Estimated blood loss (mL): 0 Specimens: Esophageal, antral and duodenal biopsies Complications: No Condition: stable Disposition: PACU
[2023-11-26 08:20] VITALS: BP 128/95; PULSE 92; TEMP 36.2; O2SAT 99; BMI 29.0
[2023-11-26 08:30] LABS: HCG Qualitative NEGATIVE (NEGATIVE); Internal Control Within Normal Limits
[2023-11-26] MEDS: 0.9 % SODIUM CHLORIDE 500 ML 50 ML IV (08:38)
[2023-11-26 09:21] VITALS: BP 128/87; PULSE 70; O2SAT 95
[2023-11-26 09:36] VITALS: BP 122/84; PULSE 76; O2SAT 96
[2023-11-26 10:06] VITALS: BP 152/97; PULSE 88
--- NOTE | 2023-11-26 10:29 | PC.NURSE ---
1006- Talked with patient at length about decreasing her vaping and marijuana usage to see if that helps to decrease her abdominal/vomiting symptoms. Patient verbalizes a understanding. Also, stressed the importance of following up with Dr. Templeton to get colonoscopy rescheduled.
[2023-11-27 13:06] LABS: H Pylori Tissue, Urease Negative
== END 2023-11-26 10:25 | disposition home or self-care (01) ==
PROVIDERS: Anesthesiology; Visit Provider Surgery
PROC: (CPT 813; principal; 2023-11-26 08:55)
DX: R10.9 Unspecified abdominal pain (principal); K62.5 Hemorrhage of anus and rectum; K21.00 Gastro-esophageal reflux disease with esophagitis, without bleeding; K29.50 Unspecified chronic gastritis without bleeding; F17.210 Nicotine dependence, cigarettes, uncomplicated; R10.84 Generalized abdominal pain; Z53.09 Procedure and treatment not carried out because of other contraindication
CPT/HCPCS: 43239; 45330; 36415; 84703; 87077; 99999; J2250; J2704; J3010

== ENCOUNTER 2024-01-06 11:36 | Outpatient (OUT) | payer MEDICAID, SELFPAY | END 2024-01-06 11:37 | disposition home or self-care (01) | LOC: PST 11:36 | PROVIDERS: Visit Provider Surgery | DX: Z01.818 Encounter for other preprocedural examination (principal); R10.84 Generalized abdominal pain; Z12.11 Encounter for screening for malignant neoplasm of colon ==

== ENCOUNTER 2024-01-14 07:31 | Day surgery (SDC) | payer MEDICAID, SELFPAY ==
--- NOTE | 2024-01-14 07:22 | PM.GSPRC ---
Date of procedure: 01/14/24 Indications for Procedure: Screening for cancer Pre-op diagnosis: Screening for cancer/previous poor bowel prep had to be repeated Post-op diagnosis: other (Colon polyp splenic flexure less than 5 mm) Procedure: colonoscopy with cold snare polyp splenic flexure Findings: Colon polyps colonic flexure Anesthesia: MAC Surgeon: Paul Templeton Procedure Summary: PROCEDURE: The patient was taken to the Endoscopy Suite, placed in the left lateral recumbent position, given IV sedation as above. A rectal digital exam was performed. The sphincter tone was found to be normal. No rectal masses were appreciated. The Olympus video colonoscope was advanced under direct visualization to the rectum, sigmoid colon, descending colon, transverse colon and ascending colon to the ileocecal valve. The underside of the valve was seen. Appendiceal lumen was visualized. Prep was excellent. The scope was slowly withdrawn with air being desufflated as it was withdrawn. No gross tumors or diverticula were seen. A polyp was noted in the splenic flexure was snared and cold removed. Hemostasis was maintained. The patient tolerated the procedure well and went to the Recovery Area in satisfactory condition. I recommend the patient have surveillance colonoscopy in 5 years if this is a tubular adenoma. Follow-up as needed. Estimated blood loss (mL): 0 Specimens: Splenic flexure polyp Complications: No Condition: stable Disposition: PACU
--- OUTSIDE RECORDS SUMMARY | 2024-01-14 07:34 | XMS_ITS | CCD ---
Author Organization [facility] Care Team Providers Care Evidence Specialist Name Role Phone Ninoska Fabian Unavailable Unavailable LissamertFabian Unavailable Unavailable Medina, Amolak Hudson Unavailable Unavailable Medina, Amolak Hudson Unavailable Unavailable Medina, Amolak Hudson Unavailable Unavailable Medina, Amolak Hudson Unavailable Unavailable Frank Shrestha Attending Unavailable NONE, XXXX Primary Care Physician Unavailab Khalil ([facility]), ANDRES Veliz Attending Provider [facility] Primary Care Provider [phone] ERICA BROWN Attending Unavailable VISCI, JENNIFER Weston Attending Unavailable VISCI, JENNIFER Weston Referring Unavailable VISCI, JENNIFER Weston Attending Unavailable VISCI, JENNIFER Weston Referring Unavailable VISCI, JENNIFER Weston Attending Unavailable [facility] Primary Care Provider DO Paul Templeton Attending Provider Unavailable Primary Care Provider [facility] Unavailable Paul Templeton Admitting Unavailable Paul Templeton Attending Unavailable Eleazar ([facility])Kandis Admitting Unavailabl dario Bush ([facility])Kandis [facility] Primary Care Unavailable JEREMIE PALACIOS Attending Unavailable JEREMIE PALACIOS Attending Unavailable Unavailable Unavailable Unavailable Medications Current Medications Medication Drug Class(es) Dates Sig (Normalized) Sig (Original) amoxicillin 875 mg oral tablet (1 source) Penicillin-class Antibacterial Start: 07-10-2022 End: 07-17-2022 take 1 tablet by mouth twice daily amoxicillin 875 mg Tab 875 mg = 1 tab(s), Oral, BID, X 7 day(s), # 14 tab(s), Refills(s) 0, Pharmacy: [facility], 170, cm, 07/10/22 20:44:00 EDT, Height/Length Dosing, 70.4, kg, 07/10/22 20:44:00 EDT, Weight Dosing Start Date: 07/10/22 Stop Date: 07/17/22 Status: Ordered Suboxone (6 sources) Partial Opioid Agonist, Opioid Antagonist Start: 03-07-2019 Suboxone SubLingual, Daily, Refill(s) 0 Start Date: 03/07/19 Status: Ordered take 1 tablet by marj once in the morning, then take 1 tablet by mouth once daily ZUBSOLV 5.7-1.[address] tablet Place 1 tablet under the tongue in the morning. TAKE 1 TABLET BY MOUTH EVERY DAY. Active 12 hr carBAMazepine 100 mg extended release oral capsule (1 source) Mood Stabilizer Start: 07-10-2022 End: 07-17-2022 take 1 capsule by mouth twice daily carbamazepine 100 mg oral capsule, extended release 100 mg = 1 cap(s), Oral, BID, X 7 day(s), # 14 cap(s), Refills(s) 0, Pharmacy: [facility] #[facility], 170, cm, 07/10/22 20:44:00 EDT, Height/Length Dosing, 70.4, kg, 07/10/22 20:44:00 EDT, Weight Dosing Start Date: 07/10/22 Stop Date: 07/17/22 Status: Ordered cloNIDine hydrochloride 0.1 mg oral tablet (5 sources) Central alpha-2 Adrenergic Agonist Start: 12-13-2022 take 1 tablet by mouth in the morning, then take 1 tablet by mouth at bedtime cloNIDine (CATAPRES) 0.1 mg tablet Take 1 tablet (0.1 mg total) by mouth in the morning and 1 tablet (0.1 mg total) before bedtime. 12/13/2022 Active diphenhydrAMINE hydrochloride 12.5 mg chewable tablet (5 sources) Histamine-1 Receptor Antagonist take 1 tablet by mouth every six hours as needed diphenhydrAMINE (BENADRYL) 12.5 mg chewable tablet Chew 1 tablet (12.5 mg total) and swallow every 6 (six) hours as needed. Active estradiol 1 mg oral tablet (5 sources) Estrogen Start: 10-30-2023 End: 10-29-2024 take 1 tablet by mouth in the morning estradioL (ESTRACE) 1 mg tablet Take 1 tablet (1 mg total) by mouth in the morning. 10/30/2023 10/29/2024 Active hydrOXYzine pamoate 50 mg oral capsule (5 sources) Antihistamine take 1 capsule by mouth once daily as needed for anxiety, then take 1 capsule by mouth once daily at bedtime as needed for anxiety hydrOXYzine (VISTARIL) 50 mg capsule Take 1 capsule (50 mg total) by mouth nightly. TAKE 1 CAPSULE BY MOUTH EVERY DAY AT BEDTIME NEEDED FOR ANXIETY Active pantoprazole 40 mg delayed release oral tablet (5 sources) Proton Pump Inhibitor Start: 11-06-2023 take 1 tablet by mouth in the morning, then take 1 tablet by mouth at bedtime pantoprazole (PROTONIX) 40 mg EC tablet Indications: Gastroesophageal reflux disease, unspecified whether esophagitis present Take 1 tablet (40 mg total) by mouth in the morning and 1 tablet (40 mg total) before bedtime. 120 tablet 11/06/2023 Active progesterone 100 mg oral capsule (5 sources) Progesterone Start: 10-30-2023 End: 10-29-2024 take 1 capsule by mouth in the morning progesterone (PROMETRIUM) 100 mg capsule Take 1 capsule (100 mg total) by mouth in the morning. 10/30/2023 10/29/2024 Active sod sulf-pot chloride-mag sulf 1.479-0.188- 0.225 gram tablet (2 sources) Start: 12-25-2023 sod sulf-pot chloride-mag sulf 1.479-0.188- 0.225 gram tablet Indications: Abdominal pain, generalized Please see instructional sheet given by physicians office. 24 tablet 12/25/2023 Active Completed/Discontinued Medications Medication Drug Class(es) Dates Sig [...] Active Problems Problem Classification Problem Date Documented Da te Episodic/Chronic Abdominal hernia (2 sources) Irreducible hernia of anterior abdominal wall; Translations: [Other and unspecified ventral hernia with obstruction, without gangrene] Onset: 4 12-25-2023 Episodic Abdominal pain (3 sources) Generalized abdominal pain; Translations: [Generalized abdominal pain] Onset: 4 12-03-2023 Episodic Administrative/social admission (2 sources) First encounter by subject; Translations: [Persons encountering health services in other specified circumstances] Onset: 4 12-25-2023 Episodic Disorders of teeth and jaw (1 source) Disorder of teeth AND/OR supporting structures; Translations: [Other specified disorders of teeth and supporting structures] Onset: 3 Episodic Esophageal disorders (4 sources) Gastroesophageal reflux disease; Translations: [Gastro-esophageal reflux disease without esophagitis] Onset: 4 12-03-2023 Chronic Gastrointestinal hemorrhage (3 sources) Rectal hemorrhage; Translations: [Hemorrhage of anus and rectum] Onset: 4 12-03-2023 Episodic Mood disorders (1 source) Mood disorders Onset: 7 Other nervous system disorders (1 source) Trigeminal neuralgia; Translations: [Trigeminal neuralgia] Onset: 3 Episodic Residual codes; unclassified (1 source) Tobacco user; Translations: [Tobacco use] 12-25-2023 Episodic Residual codes; unclassified (1 source) Tobacco use; Translations: [Tobacco use] Onset: 4 Episodic Substance-related disorders (1 source) Smoker 02-12-2016 Chronic Comment on above: Added secondary to d ocumentation in Social History. Substance-related disorders (2 sources) Marijuana user; Translations: [Cannabis use, unspecified, uncomplicated] Onset: 4 12-25-2023 Episodic Unclassified (1 source) Cervicalgia / M54.2(ICD-10) Onset: 7 Unclassified (3 sources) Opioid dependence with withdrawal / F11.23(ICD-10) Onset: 7 Unclassified (1 source) Psoriasis, unspecified / L40.9(ICD-10) Onset: 7 Unclassified (1 source) Dorsalgia, unspecified / M54.9(ICD-10) Onset: 7 Unclassified (1 source) Nicotine dependence, unspecified, uncomplicated / F17.200(ICD-10) Onset: 7 Unclassified (1 source) Cannabis abuse, uncomplicated / F12.10(ICD-10) Onset: 7 Unclassified (1 source) Other chronic pain / G89.29(ICD-10) Onset: 7 Unclassified (1 source) Encounter for screening mammogram for malignant neoplasm of breast; Translations: [Encounter for screening mammogram for malignant neoplasm of breast] Onset: 4 Past or Other Problems Problem Classification Problem Date Documented Da te Episodic/Chronic Unclassified (1 source) Opioid dependence with withdrawal; Translations: [Opioid dependence with withdrawal] Onset: 09-10-2016 Unclassified (1 source) First encounter by subject 12-25-2023 Results Test Name Value Interpretation Reference Range Facility EGD / Colonoscopyon 11-26-[address] [facility] Pathology Request for Lab Co rpon 11-26-2023 Pathology Request for Lab El Normal [facility] Comment on above: Order Comment: PATHO LOGY GI SPECIMEN Result Comment: See report. Scanned copy available in EMR. PERFORMED BY: [place] [address] PATHOLOGIST POWER SYSTEM ENGINEER ORTIZ CAMARGO M.D. Performed By: #### P ATH TO [facility] #### [address] Surgical PathologyOrdered By : Lexy Heller on 11-26-[address] [facility] MM screening mammo BI w/CADo n 03-20-2023 MM screening mammo BI w/CAD [facility] [place] [address] [place] [address] Mammography Report Signed Patient: Rich Salinas MR#: [id number] 9 : 1980 Acct:[id number] Age/Sex: 42 / F ADM Date: 03/20/23 Loc: [place] Room: Type: [facility] Attending Dr: Kandis Bush ([facility]) SOLUTION COORDINATOR Copies to: [facility] Kandismiriam Bush APRN, WHCNP Ordering Provider: Kandis Bush [...] Serafin Aguila M.D.03/20/2023 4:00 PM Dictation Location: [facility] Transcribed By: [facility] 03/20/23 1600 Dictated By: Serafin Aguila DO 03/20/23 1559 Signed By: 03/20/23 1600 Normal [facility] US transvaginalon 03-20-2023 US transvaginal [facility] [place] [address] Ultrasound Report Signed Patient: Rich Salinas MR#: [id number] 9 : 1980 Acct:[id number] Age/Sex: 42 / F ADM Date: 03/20/23 Loc: [place] Room: Type: [facility] Attending Dr: Kandis Bush ([facility]) ANDRES Ordering Provider: Kandis Bush APRN, WHCNP Date of Service: 03/20/23 US/US pelvic complete: N95.1 ([id number]) US/US transvaginal: N95.1 Copies to: Kandis Bush [...] Serafin Aguila M.D.03/20/2023 4:39 PM Dictation Location: [place] [address] Tech: Ame Scherer Transcribed By: [facility] 03/20/23 1639 Dictated By: Serafin Aguila DO 03/20/23 1636 Signed By: 03/20/23 1639 Normal [facility] Discharge Instructionson Discharge Instructions [id number]#[id number]:127 Normal [facility] Consent for Treatmenton 06-12 Consent for Treatment [id number]#1.00CD:127 Normal [facility] ED Clinical Summaryon 2022 ED Clinical Summary [place] [id number] ED Clinical Summary Person Information Name: RICH SALINAS[facility] Age: 41 Years : 1980 Sex: Female Language: Cymro PCP: NONE, XXXX Marital Status: Single Phone: [phone] Visit Id: Visit Reason: Facial pain; DENTAL [...] 07/10/2022 21:27:39 07/10/2022 21:27:39 07/10/2022 21:27:39 ADDRESS: [address] [place] [id number] PHYS DOC NOTES: MEDICAL INFORMATION: Prescriptions Given: New Medications [facility], [address] [place], [place] [id number], [phone] amoxicillin (amoxicillin 875 mg Tab) 1 Tablets [...] Trigeminal Neuralgia Follow up: With: Address: When: [facility] [address] [place] [address] [facility] (1) In 3 days 07/13/2022 With: Address: When: Erik Menjivar [address], [facility] [address] In 3 days 07/13/2022 DIAGNOSIS: Pain, dental; Trigeminal neuralgia Normal [facility] ED Note-Physicianon 07-11-19 ED Note-Physician Basic Information [...] and Complexity of Problems Differential Diagnosis: [] [facility] Data External documents reviewed: N/A My EKG [...] give her a backup plan of the [facility]. We will give her a dose of [...] prescription medications Follow-up With When Contact Information [facility] In 3 days 07/13/[address] [place], [place] [address]d[place] [address]- Business (1) Additional Instructions: Erik Menjivar In 3 days 07/13/2022 EDT [address] [place] [address]- Additional Instructions: Patient Education Trigeminal Neuralgia Problem [...] Diagnostic Results No qualifying data available. Normal [facility] Comment on above: Result Comment: Elec tronically [...] pain support group. General instructions ? Take uyhq-qxg-ayppzem and prescription medicines only as told by [...] or: ? Call your local emergency services (911 in the [place] ? Call a suicide crisis helpline, such as the National Suicide Prevention Lifeline at or 988 in the [place] This is open 24 hours a day in the [place] ? Text the Crisis Text Line at 489636 (in the [place].S.). Summary ? Trigeminal neuralgia [...] provider. Document Revised: 08/23/2021 Document Reviewed: 07/23/2021 ElseTap 'n Tap Patient Education ? 2022 Trueffect. Normal [facility] ED Patient Summaryon 023 ED Patient Summary [address] [address] Patient Discharge Instructions Person Information Name: RICH SALINAS Age: 41 Years Arrival Date: 07/10/2022 20:35:39 Discharge Diagnosis: Pain, dental; Trigeminal neuralgia Primary Care Physician: NONE, XXXX Provider Information Primary Provider: Frank Shrestha DO Advanced Grain Manager:Joshua The exam and treatment you received in the Emergency Department were for an urgent problem and are not intended as complete care. It is important that you follow up with a doctor, nurse practitioner, or physician?s content assistant for ongoing care. If your symptoms become worse or you do not improve as expected and you are unable to reach your usual health care provider, you should return to the Emergency Department. We are available 24 hours a day. RICH SALINAS has been given the following list of patient education materials, prescriptions and follow-up instructions: Follow-up Instructions: With: Address: When: [facility] [address] [place] [address] Business (1) In 3 days 07/13/2022 With: Address: When: Erik Men[facility]ivar [address] [facility] [place] [address] In 3 days 07/13/2022 In the event that this physician does not participate in your insurance network, please consult with your insurance company to find a nearby participating provider. Patient Education Materials: Trigeminal Neuralgia A MESSAGE TO ALL PATIENTS REGARDING OPIOIDS PRESCRIPTION OPIOIDS: WHAT YOU NEED TO KNOW Prescription opioids can be used to help relieve ponqyigp-qv-rjotxj pain and are often prescribed following a [...] be struggling with addiction, tell your health healthcare consulting manager and (more content not included)... Normal [facility] Discharge Summaryon 05-23-19 18 Discharge Summary MR#: [id number] [facility] Name[facility] Rich Salinas Admitted: 04/19/2017 Discharged: 04/19/2017 Date of : 1980 Physician: Bruno Mishra MD DISCHARGE SUMMARYREASON FOR ADMISSION: To detox unit, opioid dependence, and activewithdrawal.HISTORY OF PRESENT ILLNESS: The patient is a 36-year-old female whopresented to [facility] Detox Unit due to concerns about [...] recently.HOSPITAL COURSE: The patient was admitted to [facility] Detox Unit on April. Before the [...] Signed by:Bruno Mishra MD 05/22/2017 10:56 A Bruno Mishra MDDate Dict: 05/21/2017/06:54 P/ARCHANA Herreraate Trans: 05/22/2017 04:41 A/Allie_JN:[id number] Normal [facility] Medication Managementon 03-13 Medication Management Entered by Karla Salinas LPN on March 31, 2017 10:30:51 EST From: Karla Salinas LPNTo: [facility] - [place]usSent: 03/31/2017 10:30:51 ESTSubject: Medication Management Not Approved: Patient needs appointment escitalopram (ESCITALOPRAM OXALATE 10 MG TABLET) TAKE 1 TABLET BY MOUTH DAILYQty: 30 tab(s) Days Supply: 30 Refills: 0Substitutions Allowed Route To Pharmacy - [facility] - [place]Signed by Karla Salinas LPN From: [facility] - [place]: Fabian Xiao DO DOSent: March 29, 2017 1:43:55 PM CSTSubject: Medication ManagementDue: March 30, 2017 1:43:55 PM [employer] On Hold Pending Signature Drug: escitalopram (Lexapro 10 mg oral tablet) TAKE 1 TABLET BY MOUTH DAILYQuantity: 30 EA Days Supply: 0 Refills: 0Substitutions AllowedNotes from Pharmacy:Dispensed Drug: escitalopram (escitalopram 10 mg oral tablet) TAKE 1 TABLET BY MOUTH DAILYQuantity: 30 tab(s) Days Supply: 30 Refills: 0Substitutions AllowedNotes from Pharmacy: [facility] Outside Recordson 11-19-2016 Outside Records [id number]#[id number] [facility] Ambulatory Patient Summaryon 10-21-2016 Ambulatory Patient Summary Fabian Xiao DO [address] [phone] Summary For RICH Patel would like to thank you for allowing us to assist you with your healthcare needs. Our entire staff strives to provide an excellent experience for our patients and their families. The following includes information regarding your visit. Age: 36 years Sex: FEMALE : 1980 Address: [address] [place] [address] Home: Work: -- Mobile: -- Primary Care Provider: Fabian Xiao DO Race: White Ethnicity: Not or Language: Cymro Health Plan: 1?MEDICAID PARAMOUNTReason for Visit: Referral [...] Mass Index: 20.19 kg/m2 BSA Measured: 2 q5Gnzqmwn Status 10 or more cigarettes (1/2 pack [...] Medications No reported medications documentedNew MedicationsDisc[facility], [address] [place] [address], [phone] (Vistaril 25 mg oral capsule) 1 cap Oral 4 times a day as needed for anxiety. Refills: 0.Medications That Were Updated - Follow Below [facility]ructionsDisc[facility], [address] [place] [address], [phone]: escitalopram (Lexapro 10 mg oral tablet) 1 tab(s) Oral every day. Refills: 5.No Longer Take the Following MedicationsoxyMORphone (Opana ER 40 mg oral tablet, extended release) 1 tab(s) Oral every 12 hours. Normal [facility] Office/Clinic Noteon 017 Office/Clinic Note Patient: RICH SALINAS : 36 years Sex: FEMALE : [birth year]Associated Diagnoses: Depression with anxiety; H/O irritable bowel syndrome; History of narcotic addiction; SmokerAuthor: Renaldo Xiao DO Jbryclurl89/11/17 14:29 EDT establish new patient, reports h/o Drug addiction depression,hair loss,uti, endometriosis simplex,eczema,psoriasis,arthr itis,migraneherpes wants blood work done (Modified)History of Present IllnessLexapro - ran out. Was given this [facility]. Only seen once. Only given one month supply. This helped when she was on it. Sleeps poorly. She had blood work done at when she was in detox at [facility]. Sep 10-. Since then she is on Opana off of the street. 40-80 mg daily. Maximum - was 3-4 40 mg Opana. Has tried IV drugs in her 20's. Thyroid was low, sugar was high. Living in [place] currently. Works at [employer] in [place]. Does not like suboxone - stays up [...] Daily, # 30 tab(s), 5 Refill(s), Pharm[facility], 1 tab(s) PO DailyVistaril 25 mg oral capsule: 1 cap(s) ( 25 mg ), PO, QID, PRN: for anxiety, # 40 cap(s), 0 Refill(s), 11/21/16, Pharmacy: [facility], 1 cap(s) PO QID,PRN:for anxietyDocumented MedicationsDocumentedOpana [...] list (past medical history):All ProblemsSmoker / IMO [id number] / ConfirmedHistory of narcotic addiction / SNOMED CT 696689885 / ConfirmedDepression with anxiety / SNOMED CT 038655738 / Confirmed,Active Problems (3)Depression with anxietyHistory of narcotic addictionSmokerHistoriesFamily History:Genital organGrandmother (Maternal)CA - Breast cancerGrandmother (Maternal)AnxietyMotherFatherH eart murmurMotherCA - Lung cancerGrandmother (Maternal)Grandfather (Maternal)Grandfather (Paternal)Grandmother (Paternal)Rheumatoid arthritisFatherHypothyroidismG randmother (Maternal)High blood pressureMotherFatherBipolar disorderFatherHeart attackGrandmother (Maternal)DepressionMotherFath erSisterHepatitis CFatherDiverticulitis of colonFatherCardiac arrestGrandmother (Maternal)CHF (congestive heart failure)....Grandfather (Maternal)Kidney stones....SisterPsoriasis....F atherProcedure history:Tonsillectomy (SNOMED CT 758700534).Social HistorySocial & Psychosocial HabitsAlcohol Comment: kari - 10/21/2016 16:15 - Sharlene Rodriguez LPNHome/Qysdemeckxs21/11/2017 Lives with: AhedhlgxFxkucn91/11/2017 Sexually active: Yes Current partners: 1 Self described orientation: Straight or heterosexual Uses condoms: Yes History of sexual abuse: NoSubstance Abuse10/21/2016 Substance use: Past Type: UvilrirbmSqhorda15/11/2017 Smoking tobacco use: 10 or more cigarettes (1/ Smokeless tobacco use: vape.Physical ExaminationVS/MeasurementsVita l Signs10/21/16 14:29 EDT Peripheral Pulse Rate 88 bpm Systolic Blood Pressure 150 mmHg HI Diastolic Blood Pressure 88 mmHg SpO2 98 %, Measurements from flowsheet : Dbefwhzrrslu83/11/17 14:29 EDT Height 168.91 cm Weight 57.6 kg Body Mass Index 20.19 kg/m2 BSA Measured 2 e5Vucnxjy: Alert and oriented, No acute distress.Eye: Pupils [...] Sharlene Rodriguez LPNImpression and PlanDiagnosisDepression with anxiety (NUC33-FE F41.8).H/O irritable bowel syndrome (ZNO21-SQ Z87.19).History of narcotic addiction (HXQ17-RQ F11.21).Smoker (EEP99-TO F17.200).OrdersOrders (Selected)Outpatient [id number] Office visit - new pt, level 3: 10/21/16 16:41:00 EDT, Qty: 1PrescriptionsPrescribedLexapr o 10 mg oral tablet: 1 tab(s) ( 10 mg ), PO, Daily, # 30 tab(s), 5 Refill(s), Pharmacy: [facility], 1 tab(s) PO DailyVistaril 25 mg oral capsule: 1 cap(s) ( 25 mg ), PO, QID, PRN: for anxiety, # 40 cap(s), 0 Refill(s), 11/21/16, Pharmacy: [facility], 1 cap(s) PO QID,PRN:for anxietyDocumented MedicationsDocumentedescitalop abbe 10 mg oral tablet: 0 Refill(s).1. Narcotic addiction Patient remains on Opana at approximately 60 mg daily which she snorts. We discussed repeating a inpatient detoxification. Options include [facility] with a phone #[phone], the [facility] in [place] with phone #[phone], [facility] with phone number [phone], and in [place] the [facility] with phone number [phone] patient will then need to be prepared [...] one week[Electronically Signed on: 10/21/2016 16:42 EDT] Fabian Xiao DO[Verified on: 10/21/2016 16:42 EDT] Fabian Xiao DO Normal [facility] THYROID STIM IMMUNOGLOBon THYROID STIM IMMUNOGLOB Canceled Normal [facility] Comment on above: Order Comment: TEST THYROID STIM IMMUNOGLOB WAS CANCELLED, 09/14/2016 08:20 PATIENTDISCHARGED. Performed By: #### A ####[facility] KellerSan [place], [place] [phone] THYROXINE,FREEon 09-14-2016 THYROXINE,FREE Canceled Normal [facility] Comment on above: Order Comment: TEST THYROXINE,FREE WAS CANCELLED, 09/14/2016 08:20 PATIENT DISCHARGED. Result Comment: Thyr oxine Free testing is performed using different testing methodology at [facility] than at other [facility] hospitals. Direct result comparisons should only be made within the same method. Patients receiving more than 5 mg/day of biotin may have interference in test results. A sample should be taken no sooner than eight hours after previous dose. Performed By: #### A ####[facility], [place] [phone] Discharge Summaryon 09-14-19 17 Discharge Summary Send Summary:Dischar ge Summary Providers:Provider Role Provider Name? Referring Micheline Medina? Attending Cyndi Prieto? Consulting Erik Scott? Primary Required, No PCPNote Recipients: Erik Scott MDDischarge:Summary:Admission Date: .10-Sep-2016 14:29:00Discharge Date: [id number]-8128Jslwfrudo Physician at Discharge: Geoffrey Prietodmission Reason: Opioid WithdrawlFinal Discharge Diagnoses: Acute opioid withdrawalProcedures: NoneCondition at Discharge: SatisfactoryDisposition at Discharge: .HomeVital Signs: T P R BP QwI5Qxouf 37 79 16 125/76 100%Date/Time 09/13 11:44 [...] follow up Scheduled Date/Time: 13-Sep-2016 01:15 Location: [address] [place] [address] Pffbtvvfo Medications: Home Medication rOPINIRole 0.5 mg oral [...] Updated: 13-Sep-2016 12:01 by Cyndi Prieto) Normal [facility] BASIC METABOLIC PANELon 08-0 Anion gap 10 mmol/L Normal 10 - 20 [facility] Comment on above: Performed By: #### P TINR ####[facility] KellerSan [place], [place] [phone] Bicarbonate (HCO3) 30 mmol/L Normal 21 - 32 [facility] Comment on above: Performed By: #### P TINR ####[facility], [place] [phone] Calcium 9.0 mg/dL Normal 8.6 - 10.3 [facility] Comment on above: Performed By: #### P TINR ####[facility], [place] [phone] Chloride 105 mmol/L Normal 98 - 107 [facility] Comment on above: Performed By: #### P TINR ####[facility], [place] [phone] Creatinine 0.63 mg/dL Normal 0.50 - 1.05 [facility] Comment on above: Performed By: #### P TINR ####[facility], [place] [phone] eGFR (non-black) mL/min/{1.73_m2} Normal >60 [facility] Comment on above: Result Comment: CALC ULATIONS OF ESTIMATED GFR ARE PERFORMED USING THE MDRD STUDY EQUATION FOR THE IDMS-TRACEABLE CREATININE METHODS. CLIN CHEM 2007;53:766-72 Performed By: #### P TINR ####[facility], [place] [phone] Glucose mass conc 79 mg/dL Normal 74 - 99 [facility] Comment on above: Performed By: #### P TINR ####[facility], [place] [phone] Potassium molar conc 3.0 mmol/L Low 3.5 - 5.3 [facility] Comment on above: Performed By: #### P TINR ####[facility], [place] [phone] Sodium 142 mmol/L Normal 136 - 145 [facility] Comment on above: Performed By: #### P TINR ####[facility], [place] [phone] Urea nitrogen 11 mg/dL Normal 6 - 23 [facility] Comment on above: Performed By: #### P TINR ####[facility], [place] [phone] CBCon 09-12-2016 Erythrocyte distribution width Auto Ratio (RBC) 13.5 % Normal 11.5 - 14.5 [facility] Comment on above: Performed By: #### P TINR ####[facility], [place] [phone] Erythrocytes (RBC) 3.86 x10E12/L Low 4.00 - 5.20 [facility] Comment on above: Performed By: #### P TINR ####[facility], [place] [phone] Hematocrit (HCT) 33.4 % Low 36.0 - 46.0 [facility] Comment on above: Performed By: #### P TINR ####[facility], [place] [phone] Hemoglobin mass conc (Bld) 11.1 g/dL Low 12.0 - 16.0 [facility] Comment on above: Performed By: #### P TINR ####[facility], [place] [phone] MCHC mass conc (RBC) 33.2 g/dL Normal 32.0 - 36.0 [facility] Comment on above: Performed By: #### P TINR ####[facility], [place] [phone] MCV 87 fL Normal 80 - 100 [facility] Comment on above: Performed By: #### P TINR ####[facility], [place] [phone] Platelets 186 10*3/uL Normal 150 - 450 [facility] Comment on above: Performed By: #### P TINR ####[facility], [place] [phone] WBC (Leukocytes) 6.3 10*3/uL Normal 4.4 - 11.3 [facility] Comment on above: Performed By: #### P TINR ####[facility], [place] [phone] TSHon 09-12-2016 Thyroid stimulating hormone (TSH) 0.30 m[IU]/L Low 0.44 - 3.98 [facility] Comment on above: Result Comment: TSH testing is performed using different testing methodology at [facility] than at other [facility]. Direct result comparisons should only be made within the same method. Performed By: #### P TINR ####[facility], [place] [phone] DRUG SCREEN,URINEon 09-12-19 17 COCAINE METABOLITE Negative Normal NEGATIVE [facility] Comment on above: Result Comment: CUTO FF LEVEL: 150 NG/ML Rv Technician drug: Benzoylecgonine(cocaine metabolite) Performed By: #### P TINR ####[facility], [place] [phone] DRUG SCREEN COMMENT SEE BELOW Normal [facility] Comment on above: Result Comment: POSI TIVE CUTOFFS ARE BASED ON REACTIVITY WITH A TOWER CLIMBER MEMBER OF DRUG CLASS. MEMBERS OF THE [...] IS REQUESTED. Performed By: #### P TINR ####[facility], [place] [phone] OXYCODONE Positive Abnormal NEGATIVE [facility] Comment on above: Result Comment: CUTO FF LEVEL:100 NG/ML Rv Technician drug: Oxycodone This test will accurately detect both oxycodone and oxymorphone. Performed By: #### P TINR ####[facility], [place] [phone] PCP Negative Normal NEGATIVE [facility] Comment on above: Result Comment: CUTO FF LEVEL: 25 NG/ML Rv Technician drug: Phencyclidine(PCP) Cross-reactivity has been reported with dextromethorphan. Performed By: #### P TINR ####[facility] [phone] URINE BARBITURATES Negative Normal NEGATIVE [facility] Comment on above: Result Comment: CUTO FF LEVEL:200 NG/ML Rv Technician drug: Secobarbital Performed By: #### P TINR ####[facility] [phone] Urine, amphetamines presence Negative Normal NEGATIVE [facility] Comment on above: Result Comment: CUTO FF LEVEL: 500 NG/ML Rv Technician drug: d-Methamphetamine Cross-reactivity has been reported with high concentrations of the following drugs: buproprion, chloroquine, chlorpromazine, ephedrine, mephentermine, fenfluramine, phentermine, phenylpropanolamine, pseudoephedrine, and propranolol. Performed By: #### P TINR ####[facility] [phone] Urine, benzodiazepines presence Negative Normal NEGATIVE [facility] Comment on above: Result Comment: CUTO FF LEVEL:200 NG/ML Rv Technician drug: Lormetazepam Performed By: #### P TINR ####[facility] [phone] Urine, cannabinoids presence Positive Abnormal NEGATIVE [facility] Comment on above: Result Comment: CUTO FF LEVEL:50 NG/ML Rv Technician dru62-xql--THC-9carboxylic acid Performed By: #### P TINR ####[facility], [place] [phone] Urine, methadone presence Negative Normal NEGATIVE [facility] Comment on above: Result Comment: CUTO FF LEVEL: 150 NG/ML Rv Technician drug: Methadone The metabolite C-kkwtc-xdsfwgdtnthmqr (LAAM) is not detected by this method in concentrations that would be found in the urine of patients on LAAM therapy. Performed By: #### P TINR ####[facility], [place] [phone] Urine, opiates presence Negative Normal NEGATIVE [facility] Comment on above: Result Comment: CUTO FF LEVEL: 300 NG/ML Rv Technician Drug: Morphine This assay shows poor reactivity with synthetic opioids such as oxycodone and fentanyl. Cross-reactivity has been reported at high doses of meperidine. Performed By: #### P TINR ####[facility] [phone] HEPATITIS PANEL,ACUTE (HCFA) on 09-11-2016 HEP.B SURFACE AG NONREACTIVE Normal NONREACTIVE [facility] Comment on above: Result Comment: Brisa ents receiving more than 5 mg/day of biotin may have interference in test results. A sample should be taken no sooner than eight hours after previous dose. Contact [phone] for additional information. Performed By: #### P TINR ####[facility] [phone] HEPATITIS A AB-IGM NON-REACTIVE Normal NONREACTIVE [facility] Comment on above: Result Comment: Brisa ents receiving more than 5 mg/day of biotin may have interference in test results. A sample should be taken no sooner than eight hours after previous dose. Contact [phone] for additional information. Performed By: #### P TINR ####[facility], [place] [phone] HEPATITIS B CORE AB,IGM NON-REACTIVE Normal NONREACTIVE [facility] Comment on above: Result Comment: Brisa ents receiving more than 5 mg/day of biotin may have interference in test results. A sample should be taken no sooner than eight hours after previous dose. Contact [phone] for additional information. Performed By: #### P TINR ####[facility], [place] [phone] HEPATITIS C AB NON-REACTIVE Normal NONREACTIVE [facility] Comment on above: Result Comment: Brisa ents receiving more than 5 mg/day of biotin may have interference in test results. A sample should be taken no sooner than eight hours after previous dose. Contact [phone] for additional information. Performed By: #### P TINR ####[facility], [place] [phone] UA MICROSCOPICon 09-11-2016 Erythrocytes (RBC) 0-5 Normal 0-5 [facility] Comment on above: Performed By: #### P TINR ####[facility], [place] [phone] SQUAMOUS EPITH. CELLS 1+ /HPF Normal [facility] Comment on above: Performed By: #### P TINR ####[facility], [place] [phone] Urine, mucus presence in sediment 2+ /LPF Normal [facility] Comment on above: Performed By: #### P TINR ####[facility], [place] [phone] WBC (Leukocytes) 0-5 Normal 0-5 [facility] Comment on above: Performed By: #### P TINR ####[facility], [place] [phone] URINALYSISon 09-11-2016 Urine, appearance CLEAR Normal CLEAR [facility] Comment on above: Performed By: #### P TINR ####[facility], [place] [phone] Urine, color YELLOW Normal STRAW,YELLOW [facility] Comment on above: Performed By: #### P TINR ####[facility], [place] [phone] Bilirubin (total) MODERATE(2+) Abnormal NEGATIVE [facility] Comment on above: Performed By: #### P TINR ####[facility], [place] [phone] BLOOD Negative Normal NEGATIVE [facility] Comment on above: Performed By: #### P TINR ####[facility], [place] [phone] Glucose mass conc Negative Normal NEGATIVE [facility] Comment on above: Performed By: #### P TINR ####[facility], [place] [phone] pH of blood 5.0 [pH] Normal 5.0 - 8.0 [facility] Comment on above: Performed By: #### P TINR ####[facility], [place] [phone] Protein 30(1+) Abnormal NEGATIVE [facility] Comment on above: Performed By: #### P TINR ####[facility], [place] [phone] Urine, ketones presence Negative Normal NEGATIVE [facility] Comment on above: Performed By: #### P TINR ####[facility], [place] [phone] Urine, leukocyte esterase presence Negative Normal NEGATIVE [facility] Comment on above: Performed By: #### P TINR ####[facility], [place] [phone] Urine, nitrite presence Negative Normal NEGATIVE [facility] Comment on above: Performed By: #### P TINR ####[facility], [place] [phone] Urine, specific gravity 1.005 Normal 1.005 - 1.035 [facility] Comment on above: Performed By: #### P TINR ####[facility], [place] [phone] Urine, urobilinogen <2.0 Normal 0.0 - 1.9 [facility] Comment on above: Performed By: #### P TINR ####[facility], [place] [phone] ALCOHOLon 09-10-2016 Ethanol Canceled Normal [facility] Comment on above: Order Comment: TEST ALCOHOL WAS CANCELLED, 09/10/2016 16:20 DUPLICATE ORDER See [id number] CANCELLED PER NURSE/DOCTOR. RN - Horace 09/10/2016 16:20. Result Comment: FOR MEDICAL USE ONLY. Performed By: #### A LC ####[facility], [place] [phone] Ethanol mg/dL Normal [facility] Comment on above: Result Comment: FOR MEDICAL USE ONLY..REF VALUES <10 Performed By: #### A LC ####[facility], [place] [phone] CBCon 09-10-2016 Erythrocyte distribution width Auto Ratio (RBC) Canceled Normal [facility] Comment on above: Order Comment: TEST CBC WAS CANCELLED, 09/10/2016 16:20 DUPLICATE ORDER See order [id number] CANCELLED PER NURSE/DOCTOR. RN - Horace 09/10/2016 16:20. Performed By: #### C BC ####[facility], [place] [phone] Erythrocytes (RBC) Canceled Normal [facility] Comment on above: Order Comment: TEST CBC WAS CANCELLED, 09/10/2016 16:20 DUPLICATE ORDER See order [id number] CANCELLED PER NURSE/DOCTOR. RN - Horace 09/10/2016 16:20. Performed By: #### C BC ####[facility], [place] [phone] Hematocrit (HCT) Canceled Normal [facility] Comment on above: Order Comment: TEST CBC WAS CANCELLED, 09/10/2016 16:20 DUPLICATE ORDER See order [id number] CANCELLED PER NURSE/DOCTOR. RN - Horace 09/10/2016 16:20. Performed By: #### C BC ####[facility], [place] [phone] Hemoglobin mass conc (Bld) Canceled Normal [facility] Comment on above: Order Comment: TEST CBC WAS CANCELLED, 09/10/2016 16:20 DUPLICATE ORDER See order [id number] CANCELLED PER NURSE/DOCTOR. RN - Horace 09/10/2016 16:20. Performed By: #### C BC ####[facility], [place] [phone] MCHC mass conc (RBC) Canceled Normal [facility] Comment on above: Order Comment: TEST CBC WAS CANCELLED, 09/10/2016 16:20 DUPLICATE ORDER See order [id number] CANCELLED PER NURSE/DOCTOR. RN - Horace 09/10/2016 16:20. Performed By: #### C BC ####[facility], [place] [phone] MCV Canceled Normal [facility] Comment on above: Order Comment: TEST CBC WAS CANCELLED, 09/10/2016 16:20 DUPLICATE ORDER See order [id number] CANCELLED PER NURSE/DOCTOR. RN - Horace 09/10/2016 16:20. Performed By: #### C BC ####[facility], [place] [phone] Nucleated erythrocytes Canceled Normal [facility] Comment on above: Order Comment: TEST CBC WAS CANCELLED, 09/10/2016 16:20 DUPLICATE ORDER See order [id number] CANCELLED PER NURSE/DOCTOR. RN - Horcae 09/10/2016 16:20. Performed By: #### C BC ####[facility], [place] [phone] Platelets Canceled Normal [facility] Comment on above: Order Comment: TEST CBC WAS CANCELLED, 09/10/2016 16:20 DUPLICATE ORDER See order [id number] CANCELLED PER NURSE/DOCTOR. RN - Horace 09/10/2016 16:20. Performed By: #### C BC ####[facility], [place] [phone] WBC (Leukocytes) Canceled Normal [facility] Comment on above: Order Comment: TEST CBC WAS CANCELLED, 09/10/2016 16:20 DUPLICATE ORDER See order [id number] CANCELLED PER NURSE/DOCTOR. RN - Horace 09/10/2016 16:20. Performed By: #### C BC ####[facility], [place] [phone] Erythrocyte distribution width Auto Ratio (RBC) 13.5 % Normal 11.5 - 14.5 [facility] Comment on above: Performed By: #### C BC ####[facility], [place] [phone] Erythrocytes (RBC) 4.35 x10E12/L Normal 4.00 - 5.20 [facility] Comment on above: Performed By: #### C BC ####[facility], [place] [phone] Hematocrit (HCT) 37.6 % Normal 36.0 - 46.0 [facility] Comment on above: Performed By: #### C BC ####[facility], [place] [phone] Hemoglobin mass conc (Bld) 12.6 g/dL Normal 12.0 - 16.0 [facility] Comment on above: Performed By: #### C BC ####[facility], [place] [phone] MCHC mass conc (RBC) 33.5 g/dL Normal 32.0 - 36.0 [facility] Comment on above: Performed By: #### C BC ####[facility], [place] [phone] MCV 86 fL Normal 80 - 100 [facility] Comment on above: Performed By: #### C BC ####[facility], [place] [phone] Platelets 238 10*3/uL Normal 150 - 450 [facility] Comment on above: Performed By: #### C BC ####[facility], [place] [phone] WBC (Leukocytes) 7.7 10*3/uL Normal 4.4 - 11.3 [facility] Comment on above: Performed By: #### C BC ####[facility], [place] [phone] COMPREHENSIVE PANELon 2016 Alanine aminotransferase (ALT) Canceled Normal [facility] Comment on above: Order Comment: TEST COMPREHENSIVE PANEL WAS CANCELLED, 09/10/2016 16:20 DUPLICATE ORDER Seeorder [id number] CANCELLED PER NURSE/DOCTOR. KAIN Vu 09/10/2016 16:20. Result Comment: Brisa ents treated with Sulfasalazine may generate falsely decreased results for ALT. Performed By: #### C MP ####[facility], [place] [phone] Albumin Canceled Normal [facility] Comment on above: Order Comment: TEST COMPREHENSIVE PANEL WAS CANCELLED, 09/10/2016 16:20 DUPLICATE ORDER Seeorder [id number] CANCELLED PER NURSE/DOCTOR. RN - Horace 09/10/2016 16:20. Performed By: #### C MP ####[facility], [place] [phone] Alkaline phosphatase (ALP) Canceled Normal [facility] Comment on above: Order Comment: TEST COMPREHENSIVE PANEL WAS CANCELLED, 09/10/2016 16:20 DUPLICATE ORDER Seeorder [id number] CANCELLED PER NURSE/DOCTOR. RN - Horace 09/10/2016 16:20. Performed By: #### C MP ####[facility], [place] [phone] Anion gap Canceled Normal [facility] Comment on above: Order Comment: TEST COMPREHENSIVE PANEL WAS CANCELLED, 09/10/2016 16:20 DUPLICATE ORDER Seeorder [id number] CANCELLED PER NURSE/DOCTOR. RN - Horace 09/10/2016 16:20. Performed By: #### C MP ####[facility], [place] [phone] Aspartate aminotransferase (AST) Canceled Normal [facility] Comment on above: Order Comment: TEST COMPREHENSIVE PANEL WAS CANCELLED, 09/10/2016 16:20 DUPLICATE ORDER Seeorder [id number] CANCELLED PER NURSE/DOCTOR. RN - Horace 09/10/2016 16:20. Performed By: #### C MP ####[facility], [place] [phone] Bicarbonate (HCO3) Canceled Normal [facility] Comment on above: Order Comment: TEST COMPREHENSIVE PANEL WAS CANCELLED, 09/10/2016 16:20 DUPLICATE ORDER Seeorder [id number] CANCELLED PER NURSE/DOCTOR. RN - Horace 09/10/2016 16:20. Performed By: #### C MP ####[facility], [place] [phone] Bilirubin (total) Canceled Normal [facility] Comment on above: Order Comment: TEST COMPREHENSIVE PANEL WAS CANCELLED, 09/10/2016 16:20 DUPLICATE ORDER Seeorder [id number] CANCELLED PER NURSE/DOCTOR. RN - Horace 09/10/2016 16:20. Performed By: #### C MP ####[facility], [place] [phone] Calcium Canceled Normal [facility] Comment on above: Order Comment: TEST COMPREHENSIVE PANEL WAS CANCELLED, 09/10/2016 16:20 DUPLICATE ORDER Seeorder [id number] CANCELLED PER NURSE/DOCTOR. RN - Horace 09/10/2016 16:20. Performed By: #### C MP ####[facility], [place] [phone] Chloride Canceled Normal [facility] Comment on above: Order Comment: TEST COMPREHENSIVE PANEL WAS CANCELLED, 09/10/2016 16:20 DUPLICATE ORDER Seeorder [id number] CANCELLED PER NURSE/DOCTOR. RN - Horace 09/10/2016 16:20. Performed By: #### C MP ####[facility], [place] [phone] Creatinine Canceled Normal [facility] Comment on above: Order Comment: TEST COMPREHENSIVE PANEL WAS CANCELLED, 09/10/2016 16:20 DUPLICATE ORDER Seeorder [id number] CANCELLED PER NURSE/DOCTOR. RN - MadiisonCHANDRIKA 09/10/2016 16:20. Performed By: #### C MP ####[facility], [place] [phone] eGFR (non-black) Canceled Normal [facility] Comment on above: Order Comment: TEST COMPREHENSIVE PANEL WAS CANCELLED, 09/10/2016 16:20 DUPLICATE ORDER Seeorder [id number] CANCELLED PER NURSE/DOCTOR. RN - Horace 09/10/2016 16:20. Performed By: #### C MP ####[facility], [place] [phone] Result Comment: CALC ULATIONS OF ESTIMATED GFR ARE PERFORMED USING THE MDRD STUDY EQUATION FOR THE IDMS-TRACEABLE CREATININE METHODS. CLIN CHEM 2007;53:766-72 Glucose mass conc Canceled Normal [facility] Comment on above: Order Comment: TEST COMPREHENSIVE PANEL WAS CANCELLED, 09/10/2016 16:20 DUPLICATE ORDER Seeorder [id number] CANCELLED PER NURSE/DOCTOR. RN - Horace 09/10/2016 16:20. Performed By: #### C MP ####[facility], [place] [phone] Potassium molar conc Canceled Normal [facility] Comment on above: Order Comment: TEST COMPREHENSIVE PANEL WAS CANCELLED, 09/10/2016 16:20 DUPLICATE ORDER Seeorder [id number] CANCELLED PER NURSE/DOCTOR. RN - Horace 09/10/2016 16:20. Performed By: #### C MP ####[facility], [place] [phone] Protein Canceled Normal [facility] Comment on above: Order Comment: TEST COMPREHENSIVE PANEL WAS CANCELLED, 09/10/2016 16:20 DUPLICATE ORDER Seeorder [id number] CANCELLED PER NURSE/DOCTOR. RN - Horace 09/10/2016 16:20. Performed By: #### C MP ####[facility], [place] [phone] Sodium Canceled Normal [facility] Comment on above: Order Comment: TEST COMPREHENSIVE PANEL WAS CANCELLED, 09/10/2016 16:20 DUPLICATE ORDER Seeorder [id number] CANCELLED PER NURSE/DOCTOR. RN - Horace 09/10/2016 16:20. Performed By: #### C MP ####[facility], [place] [phone] Urea nitrogen Canceled Normal [facility] Comment on above: Order Comment: TEST COMPREHENSIVE PANEL WAS CANCELLED, 09/10/2016 16:20 DUPLICATE ORDER Seeorder [id number] CANCELLED PER NURSE/DOCTOR. KAIN Vu 09/10/2016 16:20. Performed By: #### C MP ####[facility], [place] [phone] Alanine aminotransferase (ALT) 13 U/L Normal 7 - 45 [facility] Comment on above: Result Comment: Brisa ents treated with Sulfasalazine may generate falsely decreased results for ALT. Performed By: #### C MP ####[facility], [place] [phone] Albumin 4.6 g/dL Normal 3.4 - 5.0 [facility] Comment on above: Performed By: #### C MP ####[facility], [place] [phone] Alkaline phosphatase (ALP) 56 U/L Normal 33 - 110 [facility] Comment on above: Performed By: #### C MP ####[facility], [place] [phone] Anion gap 10 mmol/L Normal 10 - 20 [facility] Comment on above: Performed By: #### C MP ####[facility], [place] [phone] Aspartate aminotransferase (AST) 19 U/L Normal 9 - 39 [facility] Comment on above: Performed By: #### C MP ####[facility], [place] [phone] Bicarbonate (HCO3) 28 mmol/L Normal 21 - 32 [facility] Comment on above: Performed By: #### C MP ####[facility], [place] [phone] Bilirubin (total) 0.2 mg/dL Normal 0.0 - 1.2 [facility] Comment on above: Performed By: #### C MP ####[facility], [place] [phone] Calcium 9.8 mg/dL Normal 8.6 - 10.3 [facility] Comment on above: Performed By: #### C MP ####[facility], [place] [phone] Chloride 105 mmol/L Normal 98 - 107 [facility] Comment on above: Performed By: #### C MP ####[facility], [place] [phone] Creatinine 0.63 mg/dL Normal 0.50 - 1.05 [facility] Comment on above: Performed By: #### C MP ####[facility], [place] [phone] eGFR (non-black) mL/min/{1.73_m2} Normal >60 [facility] Comment on above: Performed By: #### C MP ####[facility], [place] [phone] Result Comment: CALC ULATIONS OF ESTIMATED GFR ARE PERFORMED USING THE MDRD STUDY EQUATION FOR THE IDMS-TRACEABLE CREATININE METHODS. CLIN CHEM 2007;53:766-72 Glucose mass conc 112 mg/dL High 74 - 99 [facility] Comment on above: Performed By: #### C MP ####[facility], [place] [phone] Potassium molar conc 3.9 mmol/L Normal 3.5 - 5.3 [facility] Comment on above: Performed By: #### C MP ####[facility], [place] [phone] Protein 7.5 g/dL Normal 6.4 - 8.2 [facility] Comment on above: Performed By: #### C MP ####[facility], [place] [phone] Sodium 139 mmol/L Normal 136 - 145 [facility] Comment on above: Performed By: #### C MP ####[facility], [place] [phone] Urea nitrogen 10 mg/dL Normal 6 - 23 [facility] Comment on above: Performed By: #### C MP ####[facility], [place] [phone] HCG,BETA-QUANTITATIVEon 08-0 HCG,BETA-QUANTITA TIVE Canceled Normal [facility] Comment on above: Order Comment: TEST HCG,BETA-QUANTITATIVE WAS CANCELLED, 09/10/2016 16:22 DUPLICATE ORDERSee order [id number] CANCELLED PER NURSE/DOCTOR. KAIN Vu 09/10/2016 16:22. [...] HCG measurement is performed using the Marielle Michelle Access Immunoassay which detects intact HCG and free beta HCG subunit. This test is not indicated for use as a tumor marker. HCG testing is performed using a different test methodology at [facility] than other [facility]. Direct result comparison should only be made within the same method. Performed By: #### P TINR ####[facility], [place] [phone] HCG,BETA-QUANTITA TIVE <2 Normal [facility] Comment on above: Result Comment: Low- level [...] HCG measurement is performed using the Marielle Michelle Access Immunoassay which detects intact HCG and free beta HCG subunit. This test is not indicated for use as a tumor marker. HCG testing is performed using a different test methodology at [facility] than other [facility]. Direct result comparison should only be made within the same method.REF VALUESNON FEMALE <5MALES <5 Performed By: #### H CGQU ####[facility], [place] [phone] HEPATITIS PANEL,ACUTE (HCFA) on 09-10-2016 Lab Specimen Source Normal [facility] Comment on above: Performed By: #### P TINR ####[facility], [place] [phone] MAGNESIUMon 09-10-2016 Magnesium 2.01 mg/dL Normal 1.60 - 2.40 [facility] Comment on above: Performed By: #### M G ####[facility], [place] [phone] PHOSPHORUSon 09-10-2016 Phosphate 2.6 mg/dL Normal 2.5 - 4.9 [facility] Comment on above: Result Comment: The performance characteristics of phosphorus testing in heparinized plasma have been validated by the individual laboratory site where testing is performed. Testing on heparinized plasma is not approved by the FDA; however, such approval is not necessary. Performed By: #### P HOS ####[facility], [place] [phone] PT/INRon 09-10-2016 INR Coag RelTime (PPP) Canceled Normal [facility] Comment on above: Order Comment: TEST PT/INR WAS CANCELLED, 09/10/2016 16:20 DUPLICATE ORDER See [id number] CANCELLED PER NURSE/DOCTOR. KAIN Vu 09/10/2016 16:20. Performed By: #### P TINR ####[facility], [place] [phone] Prothrombin time (PT) Coag time (PPP) Canceled Normal [facility] Comment on above: Order Comment: TEST PT/INR WAS CANCELLED, 09/10/2016 16:20 DUPLICATE ORDER See [id number] CANCELLED PER NURSE/DOCTOR. KAIN Vu 09/10/2016 16:20. Result Comment: NOTE NEW REFERENCE RANGE. Performed By: #### P TINR ####[facility], [place] [phone] INR Coag RelTime (PPP) 1.0 {INR} Normal 0.9 - 1.1 [facility] Comment on above: Performed By: #### P TINR ####[facility], [place] [phone] Prothrombin time (PT) Coag time (PPP) 11.4 s Normal 9.8 - 12.7 [facility] Comment on above: Result Comment: NOTE NEW REFERENCE RANGE. Performed By: #### P TINR ####[facility], [place] [phone] Vital Signs Date Time Vital Sign Value Performing Clinician Mason craig 12-25-2023 14:42-0500 Body height 170.2 cm Jeremie GILL Work Phone: [facility] 12-25-2023 14:42-0500 Body mass index (BMI) [Ratio] 29.35 kg/m2 Jeremie GILL Work Phone: [facility] 12-25-2023 14:42-0500 Body weight 85 kg Jeremie GILL Work Phone: [facility] 12-25-2023 14:42-0500 Diastolic blood pressure 85 mm[Hg] Jeremie Palacios SOLUTION COORDINATOR-ASSET ACCOUNTANT Work Phone: [facility] 12-25-2023 14:42-0500 Heart rate 87 /min Jeremie Palacios SOLUTION COORDINATOR-ASSET ACCOUNTANT Work Phone: [facility] 12-25-2023 14:42-0500 Systolic blood pressure 134 mm[Hg] Jeremie Palacios SOLUTION COORDINATOR-ASSET ACCOUNTANT Work Phone: [facility] 07-10-2022 20:42-0400 Body temperature 97.7 [degF] Frank Fady [facility] 07-10-2022 20:42-0400 Diastolic blood pressure 87 mm[Hg] Frank Fady [facility] 07-10-2022 20:42-0400 Heart rate 101 /min Frank Fady [facility] 07-10-2022 20:42-0400 Respiratory rate 20 /min Frank Fady [facility] 07-10-2022 20:42-0400 SaO2% (BldA) [Mass fraction] 99 % Frank Fady [facility] 07-10-2022 20:42-0400 Systolic blood pressure 144 mm[Hg] Frank Fady [facility] Encounters Encounter Date Encounter Type Care Provider Facility Start: 01-05-2024 End: 01-05-2024 Refill Jeremie Palacios SOLUTION COORDINATOR-ASSET ACCOUNTANT Work Phone: [facility] Comment on above: Gastroesophageal ref lux disease, unspecified whether esophagitis present Start: 12-25-2023 End: 12-25-2023 ambulatory JEREMIEJANIS PALACIOS [facility] Start: 12-25-2023 End: 12-25-2023 Office outpatient visit 15 minutes Jeremie Medinaoll SOLUTION COORDINATOR-ASSET ACCOUNTANT Work Phone: [facility] Comment on above: Abdominal pain, gene ralized (Primary Dx); Gastroesophageal reflux disease, unspecified whether esophagitis present; Rectal bleeding; Incarcerated ventral hernia; Marijuana use; Tobacco abuse; Encounter to establish care with new doctor Start: 12-09-2023 End: 12-09-2023 Telephone encounter Karolyn Barragan ELECTION WATCHER [facility] Start: 12-08-2023 End: 12-08-2023 Orders Only Not In System Ref Prov [facility] Start: 12-03-2023 End: 12-03-2023 Orders Only Lexy Heller RMA [facility] Comment on above: Abdominal pain, gene ralized; Rectal bleeding; Gastroesophageal reflux disease, unspecified whether esophagitis present Start: 11-26-2023 End: 11-26-2023 ambulatory [employer] [facility] Work Phone: [facility] Work Phone: Start: 11-26-2023 End: 11-26-2023 Departed Referred [employer] [facility] Work Phone: [facility] Start: 11-06-2023 End: 11-06-2023 ambulatory JEREMIE Trista PALACIOS [facility] Start: 10-30-2023 End: 10-30-2023 ambulatory JENNIFER A VISCI Not Available Start: 09-18-2023 End: 09-18-2023 ambulatory JENNIFER A VISCI Not Available Start: 07-23-2023 End: 07-23-2023 ambulatory JENNIFER A VISCI Not Available Start: 07-22-2023 End: 07-22-2023 ambulatory ERICA BROWN Not Available Start: 03-20-2023 End: 03-20-2023 Patient encounter procedure [employer] [facility] Work Phone: [facility] Work Phone: Start: 03-20-2023 End: 03-20-2023 ambulatory [employer] [facility] Work Phone: [facility] Work Phone: Start: 07-10-2022 End: 07-10-2022 Emergency department patient visit Frank Shrestha Facility:[facility] Start: 07-10-2022 End: 07-10-2022 Emergency department patient visit Frank Shrestha [facility] Start: 10-22-2016 End: 10-22-2016 Ambulatory Fabian Xiao Facility: [facility] Start: 09-10-2016 End: 09-13-2016 Evaluation and management of inpatient Micheline Medina Facility:[facility] Start: 09-10-2016 Ambulatory Amadonis Medina Fac ility:[facility] Procedures Date Procedure Procedure Detail Performing Clinician Start: 11-26-2023 EGD / COLONOSCOPY Jose Templeton DO Work Phone: Start: 11-26-2023 Level i surg patholo gy gross examination only Not In System Ref Prov Start: 11-06-2023 Follow-up visit Follow-up JEREMIE PALACIOS Start: 03-20-2023 Pelvic echography [employer] [facility] Work Phone: Start: 03-20-2023 Transvaginal echography [employer] [facility] Work Phone: Start: 03-20-2023 Screening mammograph y of bilateral breasts [employer] [facility] Work Phone: Tonsillectomy Tonsillectomy Frank Shrestha Plan of Treatment Date Care Activity Detail Author Start: 12-24-2024 Adult BMI Screening Adult BMI Screen ing [facility] Start: 12-24-2024 Tobacco Screening [facility] Start: 11-05-2024 Adult BMI Screening Adult BMI Screen ing [facility] Start: 11-05-2024 Tobacco Screening Tobacco Screening [facility] Start: 12-25-2023 End: 12-25-2023 Patient encounter procedure 12/25/2023 2:30 PM EST Office Visit [facility] [address] [place] [phone] Shar Palaciosssjanis Weston, SOLUTION COORDINATOR-[facility] [address] [place], [place] [phone] [facility] Start: 10-12-2023 Influenza vaccination Influenza Vacc ine [facility] Start: 08-19-1999 Screening for malign ant neoplasm of cervix Pap Smear [facility] Start: 1997 DTaP,Tdap and Td Vaccines (1 - Tdap) DTaP,Tdap and Td Vaccines (1 - Tdap) [facility] Start: 1996 Adult BMI Follow Up Plan Adult BMI Follow Up Plan [facility] Start: 1990 Depression Screening Depression Scre ening [facility] Start: 1978 Tobacco Counseling Tobacco Counselin mehreen [facility] End: 12-24-2024 Colonoscopy Colonoscopy GI Routine Abdominal pain, generalized 1 Occurrences starting 12/25/2023 until 12/24/2024 [facility] Work Phone: Comment on above: 1 Occurrences starti ng 12/25/2023 until 12/24/2024 Payers Date Payer Category Payer Self-pay [id number] 2022 Medicaid [id number] 2022 Medicaid [id number] 2016 Unknown [id number] 1978 Unknown [id number] 2.16.8 [id number] 1978 Unknown [id number] 2.16.84 [id number] 1978 Unknown [id number] 2.16.84 [id number] 1978 Unknown [id number] 2.16.84 [id number] 1978 Unknown [id number] 2.16.84 [id number] 1978 Unknown [id number] 2.16.8 [id number] 1978 Unknown [id number] 2.16.8 [id number] Medicaid [id number] Unknown [id number] 2.16.8 [id number] Unknown [id number] 2.16.8 [id number] Social History Date Type Detail Facility Tobacco smoking stat [facility] Unknown if ever smoked [facility] Start: 1980 Sex Assigned At Female [facility] Start: 03-07-2019 Tobacco smoking status Heavy t obacco smoker (finding) [facility] Comment on above: 1 ppd smoker Start: 11-06-2023 End: 12-25-2023 Sex Assigned At Female [facility] Start: 01-01-2023 [facility] History of tobacco use Cigarette Smoker P [facility] Start: 01-01-2023 Tobacco use and exposure Smokeless tobacco non-user [facility] Start: 11-06-2023 End: 12-25-2023 Alcoholic beverage intake Lifetime non-drinker (finding) [facility] Start: 11-06-2023 End: 12-25-2023 History of Social function [facility] Within the past 12 months we worried whether our food would run out before we got money to buy more. Never True [facility] Start: 1980 Sex assigned at Not on file P [facility] Start: 11-26-2022 Sex Female (finding) [facility] Goals Date Patient Goal Desired Activity /State Functional Status Date Assessment Result Facility 07-10-2022 Functional Status N/A [facility] Clinical Notes 07-10-2022 to 12-25-2023 Jeremie Palacios, ANDRES-ASSET ACCOUNTANT - 12/25/2023 2:30 PM ESTTelephone Encounter - Karolyn Barragan, [facility] - 12/09/2023 1:27 PM EDTTelephone Encounter - Karolyn Barragan, [facility] - 12/09/2023 1:27 PM EDT Note Date & Type Note Facility 12-25-2023 History of Presen t illness Narrative Images from the original note were not included. Chief Complaint: Abdominal pain History of Present Illness Rich Salinas is a 43 y.o. female who presents to the office with multiple complaints. She was seen by Dr. Templeton back in December and was scheduled for EGD/colonoscopy, but this was never completed. She has several GI complaints similar to her last visit, however, she states they are worse now. She reports constant generalized abdominal pain mainly on the sides of her abdomen. She typically has 3 bowel movements daily which helps her pain, but does not completely alleviate it. She denies any constipation or diarrhea. She reports 3 episodes of bright red blood in the toilet bowl and 1 episode of dark stool. She also reports significant gagging, nausea and regurgitation of food. She drinks 1 cup of coffee daily. She does not drink any water and mainly drinks juice. She smokes 2 cigarettes daily but then vapes all day long. She also smokes 3 bowls of marijuana daily. She states she has to smoke in order to be able to eat. She is currently taking Pantoprazole 40 mg daily. She also still continues to have pain just above her umbilicus where she has a known ventral hernia. Interval update 12/25/2023: Patient presents to the office today to reschedule colonoscopy. She underwent EGD and colonoscopy at the [facility] on 11/26/2023. EGD revealed chronic gastritis. Colonoscopy was only performed to the sigmoid colon due to poor prep. She continues to have the same symptoms as mentioned above. She is having a hard time quitting smoking. Her pain seems to be worse on the left side of her abdomen. She does not feel good unless she has 3 bowel movements a day. She has not had any rectal bleeding recently. She also complains of left upper quadrant pain in that she feels like something pops out under her ribs. She would like a referral to a new family physician as her previous is no longer in practice. Review of Systems Constitutional: Negative for fever and unexpected weight change. HENT: Negative for trouble swallowing. Respiratory: Negative for shortness of breath. Cardiovascular: Negative for chest pain. Gastrointestinal: Positive for nausea, abdominal pain and blood in stool. Negative for vomiting, diarrhea and constipation. Heartburn, regurgitation of food Genitourinary: Negative for dysuria and difficulty urinating. Musculoskeletal: Negative for gait problem. Skin: Negative for rash and wound. Neurological: Negative for dizziness, weakness and light-headedness. Hematological: Does not bruise/bleed easily. Psychiatric/Behavioral: Negative for confusion. Past Medical History: Diagnosis Date Anemia Anxiety Hepatitis C Migraine Past Surgical History: Procedure Laterality Date COLONOSCOPY 12/06/2023 TONSILLECTOMY No Known Allergies Current Outpatient Medications: cloNIDine (CATAPRES) 0.1 mg tablet, Take 1 tablet (0.1 mg total) by mouth in the morning and 1 tablet (0.1 mg total) before bedtime., Disp: , Rfl: diphenhydrAMINE (BENADRYL) 12.5 mg chewable tablet, Chew 1 tablet (12.5 mg total) and swallow every 6 (six) hours as needed., Disp: , Rfl: estradioL (ESTRACE) 1 mg tablet, Take 1 tablet (1 mg total) by mouth in the morning., Disp: , Rfl: hydrOXYzine (VISTARIL) 50 mg capsule, Take 1 capsule (50 mg total) by mouth nightly. TAKE 1 CAPSULE BY MOUTH EVERY DAY AT BEDTIME NEEDED FOR ANXIETY, Disp: , Rfl: pantoprazole (PROTONIX) 40 mg EC tablet, Take 1 tablet (40 mg total) by mouth in the morning and 1 tablet (40 mg total) before bedtime., Disp: 120 tablet, Rfl: 0 progesterone (PROMETRIUM) 100 mg capsule, Take 1 capsule (100 mg total) by mouth in the morning., Disp: , Rfl: ZUBSOLV 5.7-1.4 mg per SL tablet, Place 1 tablet under the tongue in the morning. TAKE 1 TABLET BY MOUTH EVERY DAY., Disp: , Rfl: sod sulf-pot chloride-mag sulf 1.479-0.188- 0.225 gram tablet, Please see instructional sheet given by physicians office., Disp: 24 tablet, Rfl: 0 Social History Socioeconomic History Marital status: Single Spouse name: Not on file Number of children: Not on file Years of education: Not on file Highest education level: Not on file Occupational History Not on file Tobacco Use Smoking status: Every Day Types: Cigarettes Smokeless tobacco: Never Vaping Use Vaping status: Every Day Substances: Nicotine Devices: Disposable Substance and Sexual Activity Alcohol use: Never Drug use: Yes Frequency: 7.0 times per week Types: Marijuana Sexual activity: Not Currently Partners: Male Other Topics Concern Not on file Social History Narrative Not on file Social Drivers of Health Financial Resource Strain: Not on file Food Insecurity: No Food Insecurity (12/25/2023) Hunger Screening Food Insecurity - Worry: Never True Food Insecurity - Inability: Never True Transportation Needs: Not on file Physical Activity: Not on file Stress: Not on file Social Connections: Not on file Interpersonal Safety: Not on file Housing Instability: Not on file Family History Problem Relation Age of Onset Hypertension Mother Diabetes Father Diverticulosis Father Cervical cancer Sister Objective Physical Exam Constitutional: General: She is not in acute distress. Appearance: Normal appearance. She is not ill-appearing. HENT: Head: Normocephalic and atraumatic. Mouth/Throat: Mouth: Mucous membranes are moist. Eyes: Pupils: Pupils are equal, round, and reactive to light. Cardiovascular: Rate and Rhythm: Normal rate and regular rhythm. Pulmonary: Effort: Pulmonary effort is normal. No respiratory distress. Abdominal: General: There is no distension. Palpations: Abdomen is soft. Tenderness: There is abdominal tenderness. There is no guarding. Hernia: A hernia is present. Comments: Hernia present just above umbilicus, slightly tender to palpation Musculoskeletal: General: Normal range of motion. Skin: General: Skin is warm and dry. Neurological: Mental Status: She is alert and oriented to person, place, and time. Mental status is at baseline. Vital Signs: Blood pressure 134/85, pulse 87, height 170.2 cm (5' 7 ), weight 85 kg (187 lb 6.4 oz). Respiratory Source: No data recorded Admission Weight: Weight: 85 kg (187 lb 6.4 oz) Labs No results found for: WBC , HGB , HCT , MCV , PLT No results found for: GLU , CALCIUM , NA , K , CO2 , CL , BUN , CREATININE No results found for: AMYLASE No results found for: LIPASE No results found for: ALT , AST , GGT , ALKPHOS , LABBILI No results found for: INR , PROTIME Assessment Generalized abdominal pain Rectal bleeding GERD symptoms despite PPI therapy Tobacco and marijuana use Incarcerated ventral hernia Plan Repeat colonoscopy with 2 days of clear liquids. Again encouraged tobacco and marijuana cessation. Return to office after scopes to discuss hernia repair. Referral to family doctor. Evaluation included: Preparing to see the patient (e.g., review of tests) Obtaining and/or reviewing separately obtained history Performing a medically appropriate examination and/or evaluation Counseling and educating the patient/family/caregiver Referring and communicating with other health direct care professional Abdominal pain, generalized [R10.84] JAIRO GE [facility] General Surgery [place] This note was created with the assistance of a speech recognition program. While intending to generate a timely document that accurately reflects the content of the visit, no guarantee can be provided that every grammatical or spelling mistake has been or will be identified or corrected. Thank you for your understanding. JAIRO Ge 12/25/23 1524 documented in this encounter [facility] 12-09-2023 Miscellaneous Notes Formattin g of this note might be different from the original. ----- Message from Dr. Paul Templeton DO sent at 12/08/2023 2:42 PM EDT ----- Please let her know that she had mild inflammation of the stomach and I recommend her taking her pantoprazole regularly as needed. She needs to repeat her colonoscopy due to incomplete prep. Make sure they get scheduled. Thanks, Dr. Sylvester Spoke with patient regarding pathology results. Patient verbally understood and questions were answered. Patient is already scheduled to meet with Jeremie to reschedule her colonoscopy. documented in this encounter [facility] 12-09-2023 Telephone encount er Note ----- Message from Dr. Paul Templeton DO sent at 12/08/2023 2:42 PM EDT ----- Please let her know that she had mild inflammation of the stomach and I recommend her taking her pantoprazole regularly as needed. She needs to repeat her colonoscopy due to incomplete prep. Make sure they get scheduled. Thanks, Dr. Sylvester [facility] 12-09-2023 Telephone encount er Note Spoke with patient regarding pathology results. Patient verbally understood and questions were answered. Patient is already scheduled to meet with Jeremie to reschedule her colonoscopy. [facility] 07-10-2022 Hospital Discharg e instructions Patient Education [...] a pain support group. General instructions Take ucid-mkg-crfjvbl and prescription medicines only as told by [...] department or: Call your local emergency services (179 in the [place] Call a suicide crisis helpline, such as the National Suicide Prevention Lifeline at or 325 in the [place] This is open 24 hours a day in the [place] Text the Crisis Text Line at 202271 (in the [place] Summary Trigeminal neuralgia is [...] provider. Document Revised: 08/23/2021 Document Reviewed: 07/23/2021 [employer] Patient Education 2022 [employer]. Follow Up Care 07/10/2022 20:36:57 With:[employer] [facility] [employer] [facility] Address: [address] [place] [address]- Business (1) When:07/13/2022 21:14:03 With:Erik Menjivar [address]: [address] [facility] [place] [address]- When:07/13/2022 21:14:00 [facility] 07-10-2022 Evaluation + Plan note [employer] rodrick [...] date 07/10/22 21:12:00 EDT, 07/10/22 21:12:00 EDT [facility] Work Phone: Evaluation note* Diagnosis Abdominal pain, generalized Rectal bleeding Hemorrhage of rectum and anus Gastroesophageal reflux disease, unspecified whether esophagitis present [facility] Diagnosis Abdominal pain, generalized- Primary Gastroesophageal reflux disease, unspecified whether esophagitis present Rectal bleeding Hemorrhage of rectum and anus Incarcerated ventral hernia Unspecified ventral hernia with obstruction Marijuana use Tobacco abuse Tobacco use disorder Encounter to establish care with new doctor [facility] Diagnosis Gastroesophageal reflux disease, unspecified whether esophagitis present [facility] N[facility]ative No data available for this section [facility] filedocumented in [facility] encounter [facility] filedocumented in this encounter [facility] filedocumented in this encounter [facility] filedocumented in this [facility] No data available for this section [facility] Summary Purpose Family History No Family History Records FoundNo Family History Records FoundNo Family History Records FoundNo Family History Records FoundNo Family History Records FoundNo Family History Records FoundNo Family History Records Found Advance Directives Advance Directive Response Recorded Date/ Time Advance Directives No August 20 1:53pm Advance Directive Response Recorded Date/ Time Advance Directives No August 20 2:53pm Assessments No Assessments Information Available Chief Complaint and Reason for Visit Chief Complaint Z12.31 Chief Complaint Unknown Additional Source Comments INFORMATION SOURCE (unrecogn ized section and content) DATE CREATED AUTHOR 07/31/[address] [facility] DATE CREATED AUTHOR AUTHOR'S ORGANIZ ATION 08/01/2017 [facility] DATE CREATED AUTHOR AUTHOR'S ORGANIZ ATION 08/06/2017 [facility] DATE CREATED AUTHOR AUTHOR'S ORGANIZ ATION 07/20/2022 [facility] DATE CREATED AUTHOR AUTHOR'S ORGANIZ ATION 11/02/2023 [facility] DATE CREATED AUTHOR AUTHOR'S ORGANIZ ATION 12/05/2023 [facility] DATE CREATED AUTHOR AUTHOR'S ORGANIZ ATION 12/28/2023 [facility] Care Teams (unrecognized sec tion and content) Team Status: Active Member Role Status Dates [facility] Active Team Status: Inactive Member Role Status Dates Kandis Bush ([facility]) , ANDRES Attending Provider Active Start: March 20, 2023 End: March 20, 2023 [facility] Active Start: March 20, 2023 End: March 20, 2023 Goals (unrecognized section and content) Goals may be documented in a n alternate section Reason for Visit (unrecogniz ed section and content) Reason Comments Follow-up 1 month recall, last colon 11/26/23, 2 days clear liquid prep Reason Comments Med Refill FOR RECORDS PERTAINING TO PATIENTS WHO ARE [...] BE BASED ON THE PRIMARY CLINICAL RECORDS. [employer] provides no warranty or guarantee of the accuracy or completeness of information in this document.
[2024-01-14 07:52] VITALS: BP 131/82; PULSE 85; TEMP 35.9; O2SAT 99; BMI 29.2
[2024-01-14 07:59] LABS: HCG Qualitative NEGATIVE (NEGATIVE); Internal Control Within Normal Limits
[2024-01-14] MEDS: 0.9 % SODIUM CHLORIDE 500 ML 50 ML IV (08:08)
[2024-01-14 09:01] LABS: Amphetamine Screen Urine NEGATIVE (NEGATIVE); Benzodiazepines Screen Urine NEGATIVE (NEGATIVE); Cannabinoid Screen Urine POSITIVE (NEGATIVE); Cocaine Screen Urine NEGATIVE (NEGATIVE); Methamphetamines Screen Urine NEGATIVE (NEGATIVE); Opiate Screen Urine NEGATIVE (NEGATIVE); Phencyclidine Screen Urine NEGATIVE (NEGATIVE); Tricyclic Antidepressant Urine NEGATIVE (NEGATIVE)
[2024-01-14 09:02] LABS: Barbiturates Screen Urine NEGATIVE (NEGATIVE); Buprenorphine Screen Urine POSITIVE (NEGATIVE); Methadone Screen Urine NEGATIVE (NEGATIVE); Oxycodone Screen Urine NEGATIVE (NEGATIVE)
[2024-01-14 09:21] VITALS: BP 112/71; PULSE 70; O2SAT 100
[2024-01-14 09:36] VITALS: BP 119/85; PULSE 73; O2SAT 100
[2024-01-14 09:51] VITALS: BP 132/90; PULSE 83; O2SAT 100
== END 2024-01-14 09:51 | disposition home or self-care (01) ==
PROVIDERS: Anesthesiology; Visit Provider Surgery
PROC: (CPT 00811; principal; 2024-01-14 08:25)
DX: R10.84 Generalized abdominal pain (principal); D12.3 Benign neoplasm of transverse colon; F17.290 Nicotine dependence, other tobacco product, uncomplicated; K62.5 Hemorrhage of anus and rectum; K43.6 Other and unspecified ventral hernia with obstruction, without gangrene; K21.9 Gastro-esophageal reflux disease without esophagitis; B19.20 Unspecified viral hepatitis C without hepatic coma
CPT/HCPCS: 00811; 45385; 36415; 80307; 84703; J2704

== ENCOUNTER 2024-02-17 13:33 | Outpatient (OUT) | payer MEDICAID, SELFPAY ==
--- NOTE | 2024-02-17 13:37 | ECG_ITS ---
[facility] Test Date: 2024-02-17 Pat Name: RICH WHITE Department: Room: - Gender: Female Surgical Corsetier: : 1980 Requested By: ANNA MILLER Order Number: [id number] Reading MD: LEON WALSH Measurements Intervals [place] Rate: 73 P: 57 OK: 154 QRS: 64 QRSD: 94 T: 38 QT: 378 QTc: 418 Interpretive Statements SINUS RHYTHM POSSIBLE RIGHT VENTRICULAR CONDUCTION DELAY [RSR (QR) IN V1/V2] No previous ECG available for comparison Electronically Signed On 02-17-2024 20:02:15 EST by LEON WALSH
[2024-02-17 13:58] VITALS: BP 134/88; PULSE 74; TEMP 36.3; O2SAT 99; BMI 28.7
--- NOTE | 2024-02-17 14:16 | XR_ITS ---
The [address] [address] Patient Name: RICH WHITE MRN: [id number] date: 1980 Sex: F Assigned Patient Location: [facility] Current Patient Location: [facility] Accession/Order Number: [id number] Exam Date: 02/17/2024 14:18 Report Date: 02/17/2024 14:36 At the request of: ANNA MILLER Procedure: XR chest 2V EXAM: XR chest 2V HISTORY: Preop exam COMPARISON: None. TECHNIQUE: Upright PA and lateral chest x-ray FINDINGS: The heart is not enlarged and the vasculature is not distended. No acute infiltrate, effusion or pneumothorax is identified. Mild flattening of the hemidiaphragms suggest COPD. The osseous structures are grossly intact. XR/XR chest 2V IMPRESSION: No acute infiltrate or evidence of cardiac decompensation. Electronically authenticated by: KIN AYERS Date: 02/17/2024 14:36
== END 2024-02-17 13:34 | disposition home or self-care (01) ==
LOC: PST 13:33
PROVIDERS: Visit Provider Surgery
DX: Z01.810 Encounter for preprocedural cardiovascular examination (principal); K43.9 Ventral hernia without obstruction or gangrene
CPT/HCPCS: 71046; 93005

== ENCOUNTER 2024-02-25 06:38 | Day surgery (SDC) | payer MEDICAID, SELFPAY ==
[2024-02-25] VITALS (20 sets, daily range): BP systolic 106–146; BP diastolic 63–105; PULSE 88–108; TEMP 36.3–36.4; O2SAT 94–100; BMI 29.3
--- OUTSIDE RECORDS SUMMARY | 2024-02-25 06:42 | XMS_ITS | CCD ---
Author Organization [facility] Care Team Providers Care Supervisor Soakers Name Role Phone Natashat, Fabian Unavailable Unavailable Mummert Fabian Unavailable Unavailable Medina, Amolak Hudson Unavailable Unavailable Medina, Amolak Hudson Unavailable Unavailable Medina, Amolak Hudson Unavailable Unavailable Medina, Amolak Hudson Unavailable Unavailable Frank Shrestha Attending Unavailable NONE, XXXX Primary Care Physician Unavailab Khalil ([facility]), ANDRES Veliz Attending Provider [phone] [facility] Primary Care Provider [phone] ERICA BROWN Attending Unavailable VISCI, JENNIFER Weston Attending Unavailable VISCI, JENNIFER Weston Referring Unavailable VISCI, JENNIFER Weston Attending Unavailable VISCI, JENNIFER Weston Referring Unavailable VISCI, JENNIFER Weston Attending Unavailable [facility] [place] Kymberly Primary Care Provider DO Anna Miller Attending Provider Unavailable Primary Care Provider Unavailstephani [facility] DeptJohnathon Primary Care Unavailable Anna Miller Admitting Unavailable Anna Miller Attending Unavailable Anna Miller Admitting Unavailable Anna Miller Attending [facility]available [facility] John[facility]lc Traylor Primary Care Unavailable Rice ([facility])Kandis Admitting Unavailstephani e Rice ([facility]), Kandis Veliz Attending Unavailabl e Unallocated , Noms Provider Primary Care Provi teresa WILLOW PALACIOS Attending Unavailable WILLOW PALACIOS Attending Unavailable ANNA MILLER Attending Unavailable Unavailable Unavailable Unavailable Medications Current Medications Medication Drug Class(es) Dates Sig (Normalized) Sig (Original) amoxicillin 875 mg oral tablet (1 source) Penicillin-class Antibacterial Start: 07-10-2022 End: 07-17-2022 take 1 tablet by mouth twice daily amoxicillin 875 mg Tab 875 mg = 1 tab(s), Oral, BID, X 7 day(s), # 14 tab(s), Refills(s) 0, Pharmacy: [facility], 170, cm, 07/10/22 20:44:00 EDT, Height/Length Dosing, 70.4, kg, 07/10/22 20:44:00 EDT, Weight Dosing Start Date: 07/10/22 Stop Date: 07/17/22 Status: Ordered buprenorphine 5.7 mg / naloxone 1.4 mg sublingual tablet (13 sources) Partial Opioid Agonist, Opioid Antagonist Start: 07-22-2023 Zubsolv 5.7-1.4 MG SL tablet 07/22/2023 Active Start: 03-07-2019 Suboxone SubLi ngual, Daily, Refill(s) 0 Start Date: 03/07/19 Status: [...] day(s), # 14 cap(s), Refills(s) 0, Pharmacy: [facility], 170, cm, 07/10/22 20:44:00 EDT, Height/Length Dosing, 70.4, kg, 07/10/22 20:44:00 EDT, Weight Dosing Start Date: 07/10/22 Stop Date: 07/17/22 Status: Ordered cloNIDine hydrochloride 0.1 mg oral tablet (12 sources) Central alpha-2 Adrenergic Agonist Start: 12-13-2022 take 1 tablet by mouth in the morning, then take 1 tablet by mouth at bedtime cloNIDine (CATAPRES) 0.1 mg tablet Take 1 tablet (0.1 mg total) by mouth in the morning and 1 tablet (0.1 mg total) before bedtime. 12/13/2022 Active diphenhydrAMINE hydrochloride 12.5 mg chewable tablet (12 sources) Histamine-1 Receptor Antagonist take 1 tablet by mouth every six hours as needed diphenhydrAMINE (BENADRYL) 12.5 mg chewable tablet Chew 1 tablet (12.5 mg total) and swallow every 6 (six) hours as needed. Active estradiol 1 mg oral tablet (11 sources) Estrogen Start: 10-30-2023 End: 10-29-2024 take 1 tablet by mouth in the morning estradioL (ESTRACE) 1 mg tablet Take 1 tablet (1 mg total) by mouth in the morning. 10/30/2023 10/29/2024 Active estrogens, conjugated (senior living) 0.625 mg / medroxyPROGESTERone acetate 2.5 mg oral tablet (3 sources) Progestin, Estrogen Start: 10-06-2023 End: 10-05-2024 take 0.625-2.5 mg by mouth once daily estrogen, conjugated,-medroxy PROGESTERone (Prempro) 0.625-2.5 MG tablet Indications: Hot flashes Take 1 tablet by mouth Daily 30 tablet 11 10/06/2023 10/05/2024 Active hydrOXYzine pamoate 50 mg oral capsule (12 sources) Antihistamine Start: 06-23-2023 hydrOXYzine pamoate (Vistaril) 50 MG capsule TAKE 1 CAPSULE AT BEDTIME NEEDED FOR ANXIETY 06/23/2023 Active melatonin 1 mg oral capsule (3 sources) Melatonin 1 MG capsule Indications: Insomnia Take by mouth Active pantoprazole 40 mg delayed release oral tablet (13 sources) Proton Pump Inhibitor Start: 01-28-2024 take 1 tablet by mouth in the morning pantoprazole (PROTONIX) 40 mg EC tablet Take 1 tablet (40 mg total) by mouth in the morning. 60 tablet 1 01/28/2024 Active Start: 11-06-2023 take 1 tablet by marj th in the morning, then take 1 tablet by mouth at bedtime pantoprazole (PROTONIX) 40 mg EC tablet Indications: Gastroesophageal reflux disease, unspecified whether esophagitis present Take 1 tablet (40 mg total) by mouth in the morning and 1 tablet (40 mg total) before bedtime. 120 tablet 11/06/2023 Active take 1 tablet by marj th before mealtime pantoprazole (ProtoNix) 20 MG EC tablet Take 20 mg by mouth in the morning. Take before meals. Do not crush, chew, or split.. Active progesterone 100 mg oral capsule (11 sources) Progesterone Start: 10-30-2023 End: 10-29-2024 take 1 capsule by mouth in the morning progesterone (PROMETRIUM) 100 mg capsule Take 1 capsule (100 mg total) by mouth in the morning. 10/30/2023 10/29/2024 Active sod sulf-pot chloride-mag sulf 1.479-0.188- 0.225 gram tablet (5 sources) Start: 12-25-2023 sod sulf-pot chloride-mag sulf 1.479-0.188- 0.225 gram tablet Indications: Abdominal pain, generalized Please see instructional sheet given by physicians office. 24 tablet 12/25/2023 Active Completed/Discontinued Medications Medication Drug Class(es) Dates Sig (Normalized) Sig (Original) estradiol 1 mg / progesterone 100 mg oral capsule (1 source) Progesterone, Estrogen Start: 09-18-2023 End: 10-05-2023 take 1-100 mg by mouth once daily Estradiol-Progeste demetria (Bijuva) 1-100 MG capsule Indications: Abnormal weight gain , Hot flashes , Night sweats , Mood swings , Amenorrhea , Hair loss Take 1 tablet by mouth Daily 90 capsule 3 09/18/2023 10/05/2023 Discontinued (Other) ibuprofen 800 mg oral tablet (1 source) Nonsteroidal Anti-inflammatory Drug Start: 12-16-2020 take 8-10 tablets by mouth every eight hours as needed ibuprofen 800 mg Tab 800 mg = 1 tab(s), Oral, q8hr, PRN Pain 8-10, # 21 tab(s), Refills(s) 0 Start Date: 12/16/20 Status: Ordered Problems Active Problems Problem Classification Problem Date Documented Da te Episodic/Chronic Abdominal hernia (3 sources) Irreducible hernia of anterior abdominal wall; Translations: [Other and unspecified ventral hernia with obstruction, without gangrene] Onset: 4 12-25-2023 Episodic Abdominal pain (4 sources) Generalized abdominal pain; Translations: [Generalized abdominal pain] Onset: 4 12-03-2023 Episodic Administrative/social admission (2 sources) First encounter by subject; Translations: [Persons encountering health services in other specified circumstances] Onset: 4 12-25-2023 Episodic Anxiety disorders (2 sources) Generalized anxiety disorder; Translations: [Generalized anxiety disorder] 10-24-2023 Chronic Disorders of teeth and jaw (1 source) Disorder of teeth AND/OR supporting structures; Translations: [Other specified disorders of teeth and supporting structures] Onset: 3 Episodic Esophageal disorders (4 sources) Gastroesophageal reflux disease; Translations: [Gastro-esophageal reflux disease without esophagitis] Onset: 4 12-03-2023 Chronic Gastrointestinal hemorrhage (3 sources) Rectal hemorrhage; Translations: [Hemorrhage of anus and rectum] Onset: 4 12-03-2023 Episodic Menstrual disorders (2 sources) Amenorrhea; Translations: [Amenorrhea, unspecified] 10-24-2023 Chronic Mood disorders (2 sources) Depressive disorder; Translations: [Other specified depressive episodes] 10-24-2023 Chronic Mood disorders (2 sources) Mood swings; Translations: [Emotional lability] 10-30-2023 Episodic Mood disorders (1 source) Mood disorders Onset: 7 Other nervous system disorders (1 source) Trigeminal neuralgia; Translations: [Trigeminal neuralgia] Onset: 3 Episodic Other nutritional; endocrine; and metabolic disorders (2 sources) Abnormal weight gain; Translations: [Abnormal weight gain] 10-24-2023 Episodic Other skin disorders (2 sources) Night sweats; Translations: [Generalized hyperhidrosis] 10-24-2023 Episodic Other skin disorders (2 sources) Loss of hair; Translations: [Nonscarring hair loss, unspecified] 10-24-2023 Episodic Residual codes; unclassified (1 source) Tobacco user; Translations: [Tobacco use] 12-25-2023 Episodic Residual codes; unclassified (3 sources) Flushing; Translations: [Flushing] 10-06-2023 Episodic Residual codes; unclassified (1 source) Tobacco [...] Test Name Value Interpretation Reference Range Facility ECG 12 leadOrdered By: Fabienne Heller on 02-18-2024 [facility] Colonoscopyon 01-14-2024 [facility] No Panel Informationon 01-13 [facility] Pathology Request for Lab Co rpon 01-14-2024 Pathology Request for Lab El Normal [facility] Comment on above: Order Comment: PATHO LOGY GI SPECIMEN Result Comment: See report. Scanned copy available in EMR. PERFORMED BY: [place] [address] PATHOLOGIST PERFECT BINDER SETTER FARZANEH LOZADA M.D. Performed By: #### P ATH TO [facility] #### [address] , urineon HCG ( test) Ql (U) Negative [facility] EGD / Colonoscopyon 11-26-19 [facility] Pathology Request for Lab Co rpon 11-26-2023 Pathology Request for Lab El Normal [facility] Comment on above: Order Comment: PATHO LOGY GI SPECIMEN Result Comment: See report. Scanned copy available in EMR. PERFORMED BY: [place] [address] PATHOLOGIST PERFECT BINDER SETTER ORTIZ CAMARGO M.D. Performed By: #### P ATH TO [facility] #### [address] Surgical PathologyOrdered By : Lexy Heller on 11-26-2023 [facility] MM screening mammo BI w/CADo n 03-20-2023 MM screening mammo BI w/CAD [facility] Main [place] [address] [place] [address] Mammography Report Signed Patient: Mariam Salinas MR#: [id number] 9 : 1980 Acct:[id number] Age/Sex: 42 / F ADM Date: 03/20/23 Loc: [place] Room: Type: [facility] Attending Dr: Kandis Bush ([facility]) ANDRES Copies to: [facility] Kandis Bush APRN, WHCNP Ordering Provider: Kandis [...] M.D.03/20/2023 4:00 PM Dictation Location: [facility] Transcribed By: [facility] 03/20/23 1600 Dictated By: Serafin Aguila DO 03/20/23 1559 Signed By: 03/20/23 1600 Normal [facility] US transvaginalon 03-20-2023 US transvaginal [place] [address] Ultrasound Report Signed Patient: Mariam Salinas MR#: [id number] 9 : 1980 Acct:[id number] Age/Sex: 42 / F ADM Date: 03/20/23 Loc: [place] Room: Type: [facility] Attending Dr: Kandis Bush ([facility]) ANDRES Ordering Provider: Kandis Bush APRN, WHCNP Date of Service: 03/20/23 US/US pelvic complete: N95.1 ([id number]) US/US transvaginal: N95.1 Copies to: Kandis Bush [...] Serafin Aguila M.D.03/20/2023 4:39 PM Dictation Location: [place] [address] Tech: Ame Scherer Transcribed By: SONIA 03/20/23 1639 Dictated By: Serafin Aguila DO 03/20/23 1636 Signed By: 03/20/23 1639 Normal [facility] Discharge Instructionson Discharge Instructions [id number]:127 Normal [facility] Consent for Treatmenton 06-12 Consent for Treatment [id number]#1.00CD:127 Normal [facility] ED Clinical Summaryon 2022 ED Clinical Summary [place] [id number] ED Clinical Summary Person Information [facility]: [facility] Age: 41 Years : 1980 Sex: Female Language: Belarusian PCP: NONE, XXXX Marital Status: Single Phone: [phone] Visit Id: Visit Reason: Facial pain; DENTAL [...] 07/10/2022 21:27:39 07/10/2022 21:27:39 07/10/2022 21:27:39 ADDRESS: [address] [place] [id number] PHYS DOC NOTES: MEDICAL INFORMATION: Prescriptions Given: New Medications [facility], [address] [place] [id number], [phone] amoxicillin (amoxicillin 875 mg Tab) 1 Tablets [...] Trigeminal Neuralgia Follow up: With: Address: When: O[facility] [address] [place] [address] Business (1) In 3 days 07/13/2022 With: Address: When: Erik Menjivar [address] [facility] [place] [address] In 3 days 07/13/2022 DIAGNOSIS: Pain, dental; Trigeminal neuralgia Normal [facility] ED Note-Physicianon 07-11-19 ED Note-Physician Basic [...] and Complexity of Problems Differential Diagnosis: [] [facility] Data External documents reviewed: N/A My EKG [...] give her a backup plan of the [facility]. We will give her a dose of [...] prescription medications Follow-up With When Contact Information [facility] Services [facility] In 3 days 07/13/[address] [place] [address]- Business (1) Additional Instructions: Erik Menjivar In 3 days 07/13/2022 EDT [address] [place] [address]- Additional Instructions: Patient Education Trigeminal Neuralgia Problem [...] Results No qualifying data available. Normal [facility] Comment on above: Result Comment: Elec tronically [...] pain support group. General instructions ? Take vmre-pqb-erskcxw and prescription medicines only as told by [...] or: ? Call your local emergency services (512 in the [place] ? Call a suicide crisis helpline, such as the National Suicide Prevention Lifeline at or 781 in the [place] This is open 24 hours a day in the [place] ? Text the Crisis Text Line at 924756 (in the [place].). Summary ? Trigeminal neuralgia [...] Reviewed: 07/23/2021 Elsevier Patient Education ? 2022 [employer] Normal [facility] ED Patient Summaryon 023 ED Patient Summary [address] [address] Patient Discharge Instructions Person Information Name: MARIAM SALINAS Age: 41 Years Arrival Date: 07/10/2022 20:35:39 Discharge Diagnosis: Pain, dental; Trigeminal neuralgia Primary Care Physician: NONE, XXXX Provider Information Primary Provider: Frank Shrestha DO Advanced Academic Specialist:Joshua The exam and treatment you received in the Emergency Department were for an urgent problem and are not intended as complete care. It is important that you follow up with a doctor, nurse practitioner, or physician?s seismic survey assistant for ongoing care. If your symptoms become worse or you do not improve as expected and you are unable to reach your usual health care provider, you should return to the Emergency Department. We are available 24 hours a day. MARIAM SALINAS has been given the following list of patient education materials, prescriptions and follow-up instructions: Follow-up Instructions: With: Address: When: [employer] [address] [place] [address] [facility] () In 3 days 07/13/2022 With: Address: When: Erik Menjivar [address] [facility] [place] [address] In 3 days 07/13/2022 In the event that this physician does not participate in your insurance network, please consult with your insurance company to find a nearby participating provider. Patient Education Materials: Trigeminal Neuralgia A MESSAGE TO ALL PATIENTS REGARDING OPIOIDS PRESCRIPTION OPIOIDS: WHAT YOU NEED TO KNOW Prescription opioids can be used to help relieve kcmvkmvo-ke-iuxjjy pain and are often prescribed following a [...] be struggling with addiction, tell your health laboratory animal care veterinarian and (more content not included)... Normal [facility] Discharge Summaryon 05-23-19 Discharge Summary MR#: [id number] [facility] Name: Mariam Salinas Admitted: 04/19/2017 Discharged: 04/19/2017 Date of : 1980 Physician: Bruno Mishra MD DISCHARGE SUMMARYREASON FOR ADMISSION: To detox unit, opioid dependence, and activewithdrawal.HISTORY OF PRESENT ILLNESS: The patient is a 36-year-old female whopresented to [facility] due to concerns about [...] recently.HOSPITAL COURSE: The patient was admitted to [facility] Detox Unit on April. Before the [...] 05/22/2017 10:56 A ARCHANA Herreraate Dict: 05/21/2017/06:54 P/Pauline Herrera Trans: 05/22/2017 04:41 A/[id number] Normal [facility] Medication Managementon 03-13 Medication Management Entered by Karla Salinas LPN on March 31, 2017 10:30:51 EST From: Krala Salinas LPNTo: [facility] - [place]usSent: 03/31/2017 10:30:51 ESTSubject: Medication Management Not Approved: Patient needs appointment escitalopram (ESCITALOPRAM OXALATE 10 MG TABLET) TAKE 1 TABLET BY MOUTH DAILYQty: 30 tab(s) Days Supply: 30 Refills: 0Substitutions Allowed Route To Pharmacy - [facility] [place]Signed by Karla Salinas LPN From: [facility] [place]To: Fabian Xiao DO DOSent: March 29, 2017 1:43:55 PM CSTSubject: Medication ManagementDue: March 30, 2017 1:43:55 PM CUTTER OPERATOR On Hold Pending Signature Drug: escitalopram (Lexapro 10 mg oral tablet) TAKE 1 TABLET BY MOUTH DAILYQuantity: 30 EA Days Supply: 0 Refills: 0Substitutions AllowedNotes from Pharmacy:Dispensed Drug: escitalopram (escitalopram 10 mg oral tablet) TAKE 1 TABLET BY MOUTH DAILYQuantity: 30 tab(s) Days Supply: 30 Refills: 0Substitutions AllowedNotes from Pharmacy: [facility] Outside Recordson 11-19-2016 Outside Records [id number] [facility] Ambulatory Patient Summaryon 10-21-2016 Ambulatory Patient Summary Fabian Xiao DO [place] [address] . [place], [place] [phone] Summary For MARIAM Patel would like to thank you for allowing us to assist you with your healthcare needs. Our entire staff strives to provide an excellent experience for our patients and their families. The following includes information regarding your visit. Age: 36 years Sex: FEMALE : 1980 Address: [address] [place] [address] Home: Work: -- Mobile: -- Primary Care Provider: Fabian Xiao DO Race: White Ethnicity: Not or Language: Belarusian Health Plan: 1?MEDICAID PARAMOUNTReason for Visit: Referral [...] Mass Index: 20.19 kg/m2 BSA Measured: 2 p1Jiylrgk Status 10 or more cigarettes (1/2 pack [...] Medications No reported medications documentedNew MedicationsDiscount [facility], [address] [place] [address], [phone] (Vistaril 25 mg oral capsule) 1 cap Oral 4 times a day as needed for anxiety. Refills: 0.Medications That Were Updated - Follow Below InstructionsDiscount Drug [facility], [address] [place] [address], [phone]: escitalopram (Lexapro 10 mg oral tablet) 1 tab(s) Oral every day. Refills: 5.No Longer Take the Following MedicationsoxyMORphone (Opana ER 40 mg oral tablet, extended release) 1 tab(s) Oral every [address] [facility] Office/Clinic Noteon 017 Office/Clinic Note Patient: MARIAM SALINAS : 36 years Sex: FEMALE : [birth year]Associated Diagnoses: Depression with anxiety; H/O irritable bowel syndrome; History of narcotic addiction; SmokerAuthor: Renaldo Xiao DO Rykuazitw25/11/17 14:29 EDT establish new patient, reports h/o Drug addiction depression,hair loss,uti, endometriosis simplex,eczema,psoriasis,arthr itis,migraneherpes wants blood work done (Modified)History of Present IllnessLexapro - ran out. Was given this [facility]. Only seen once. Only given one month supply. This helped when she was on it. Sleeps poorly. She had blood work done at when she was in detox at [facility]. Sep 10-. Since then she is on Opana off of the street. 40-80 mg daily. Maximum - was 3-4 40 mg Opana. Has tried IV drugs in her 20's. Thyroid was low, sugar was high. Living in [place] currently. Works at [employer] in [employer]. Does not like suboxone - stays up [...] Daily, # 30 tab(s), 5 Refill(s), [facility], 1 tab(s) PO DailyVistaril 25 mg oral capsule: 1 cap(s) ( 25 mg ), PO, QID, PRN: for anxiety, # 40 cap(s), 0 Refill(s), 11/21/16, Pharmacy: [facility], 1 cap(s) PO QID,PRN:for anxietyDocumented MedicationsDocumentedOpana [...] list (past medical history):All ProblemsSmoker / IMO 406332 / ConfirmedHistory of narcotic addiction / SNOMED CT 762170437 / ConfirmedDepression with anxiety / SNOMED CT 714759127 / Confirmed,Active Problems (3)Depression with anxietyHistory of narcotic addictionSmokerHistoriesFamily History:Genital organGrandmother (Maternal)CA - Breast cancerGrandmother (Maternal)AnxietyMotherFatherH eart murmurMotherCA - Lung cancerGrandmother (Maternal)Grandfather (Maternal)Grandfather (Paternal)Grandmother (Paternal)Rheumatoid arthritisFatherHypothyroidismG randmother (Maternal)High blood pressureMotherFatherBipolar disorderFatherHeart attackGrandmother (Maternal)DepressionMotherFath erSisterHepatitis CFatherDiverticulitis of colonFatherCardiac arrestGrandmother (Maternal)CHF (congestive heart failure)....Grandfather (Maternal)Kidney stones....SisterPsoriasis....F atherProcedure history:Tonsillectomy (SNOMED CT 518256000).Social HistorySocial & Psychosocial HabitsAlcohol Comment: dendonya - 10/21/2016 16:15 - Sharlene Rodriguez LPNHome/Opmcpqazotf74/11/2017 Lives with: VzyfhidtDcwios59/11/2017 Sexually active: Yes Current partners: 1 Self described orientation: Straight or heterosexual Uses condoms: Yes History of sexual abuse: NoSubstance Abuse10/21/2016 Substance use: Past Type: KjffsmewtQjrxxfb22/11/2017 Smoking tobacco use: 10 or more cigarettes (1/ Smokeless tobacco use: vape.Physical ExaminationVS/MeasurementsVita l Signs10/21/16 14:29 EDT Peripheral Pulse Rate 88 bpm Systolic Blood Pressure 150 mmHg HI Diastolic Blood Pressure 88 mmHg SpO2 98 %, Measurements from flowsheet : Wksuyxsghhki67/11/17 14:29 EDT Height 168.91 cm Weight 57.6 kg Body Mass Index 20.19 kg/m2 BSA Measured 2 c5Admqwye: Alert and oriented, No acute distress.Eye: Pupils [...] Sharlene Rodriguez LPNImpression and PlanDiagnosisDepression with anxiety (QYU66-RA F41.8).H/O irritable bowel syndrome (BLY43-LK Z87.19).History of narcotic addiction (QBS99-BZ F11.21).Smoker (ATT98-YR F17.200).OrdersOrders (Selected)Outpatient [id number] Office visit - new pt, level 3: 10/21/16 16:41:00 EDT, Qty: 1PrescriptionsPrescribedLexapr o 10 mg oral tablet: 1 tab(s) ( 10 mg ), PO, Daily, # 30 tab(s), 5 Refill(s), Pharmacy: [facility], 1 tab(s) PO DailyVistaril 25 mg oral capsule: 1 cap(s) ( 25 mg ), PO, QID, PRN: for anxiety, # 40 cap(s), 0 Refill(s), 11/21/16, Pharmacy: [facility], 1 cap(s) PO QID,PRN:for anxietyDocumented MedicationsDocumentedescitalop abbe 10 mg oral tablet: 0 Refill(s).1. Narcotic addiction Patient remains on Opana at approximately 60 mg daily which she snorts. We discussed repeating a inpatient detoxification. Options include [facility] with a phone #[phone], the [facility] in [place] with phone #[phone], [facility] with phone number [phone], and in [place] the [facility] with phone number [phone] patient will then need to be prepared [...] 10/21/2016 16:42 EDT] Mummert DO, Fabian Normal [facility] THYROID STIM IMMUNOGLOBon THYROID STIM IMMUNOGLOB Canceled Normal [facility] Comment on above: Order Comment: TEST THYROID STIM IMMUNOGLOB WAS CANCELLED, 09/14/2016 08:20 PATIENTDISCHARGED. Performed By: #### A LC ####[place] [facility], [place] [phone] THYROXINE,FREEon 09-14-2016 THYROXINE,FREE Canceled Normal [facility] Comment on above: Order Comment: TEST THYROXINE,FREE WAS CANCELLED, 09/14/2016 08:20 PATIENT DISCHARGED. Result Comment: Thyr oxine Free testing is performed using different testing methodology at [facility] than at other [facility] surgeons hospital. Direct result comparisons should only be made within the same method. Patients receiving more than 5 mg/day of biotin may have interference in test results. A sample should be taken no sooner than eight hours after previous dose. Performed By: #### A LC ####[facility], [place] [phone] Discharge Summaryon 09-14-19 17 Discharge Summary Send Summary:Dischar ge Summary Providers:Provider Role Provider Name? Referring Mihceline Medina? Attending Cyndi Prieto? Consulting Erik Scott? Primary Required, No PCPNote Recipients: Erik Scott, MDDischarge:Summary:Admission Date: .10-Sep-2016 14:29:00Discharge Date: [id number] Physician at Discharge: Jayjay Prieto Reason: Opioid WithdrawlFinal Discharge Diagnoses: Acute opioid withdrawalProcedures: NoneCondition at Discharge: SatisfactoryDisposition at Discharge: .HomeVital Signs: T P R BP [id number] 37 79 16 125/76 100%Date/Time 09/13 11:44 [...] use, who came to the hospital secondary [facility]. Patient admits to using 80 mg a [...] follow up Scheduled Date/Time: 13-Sep-2016 01:15 Location: [address] [place] [address] Lttzhiozi Medications: Home Medication rOPINIRole 0.5 mg oral [...] Updated: 13-Sep-2016 12:01 by Cyndi Prieto) Normal [facility] BASIC METABOLIC PANELon 08-0 Anion gap 10 mmol/L Normal 10 - 20 [facility] Comment on above: Performed By: #### P TINR ####[facility], [place] [phone] Bicarbonate (HCO3) 30 mmol/L Normal 21 - 32 [facility] Comment on above: Performed By: #### P TINR ####[facility], [place] [phone] Calcium 9.0 mg/dL Normal 8.6 - 10.3 [facility] Comment on above: Performed By: #### P TINR ####[facility], [place] [phone] Chloride 105 mmol/L Normal 98 - 107 [facility] Comment on above: Performed By: #### P TINR ####[facility], [place] [phone] Creatinine 0.63 mg/dL Normal 0.50 - 1.05 [facility] Comment on above: Performed By: #### P TINR ####[facility], [place] [phone] eGFR (non-black) mL/min/{1.73_m2} Normal >60 [facility] Comment on above: Result Comment: CALC ULATIONS OF ESTIMATED GFR ARE PERFORMED USING THE MDRD STUDY EQUATION FOR THE IDMS-TRACEABLE CREATININE METHODS. CLIN CHEM 2007;53:766-72 Performed By: #### P TINR ####[facility], [place] [phone] Glucose mass conc 79 mg/dL Normal 74 - 99 [facility] Comment on above: Performed By: #### P TINR ####[facility], [place] [phone] Potassium molar conc 3.0 mmol/L Low 3.5 - 5.3 [facility] Comment on above: Performed By: #### P TINR ####[facility], [place] [phone] Sodium 142 mmol/L Normal 136 - 145 [facility] Comment on above: Performed By: #### P TINR ####[facility], [place] [phone] Urea nitrogen 11 mg/dL Normal 6 - 23 [facility] Comment on above: Performed By: #### P TINR ####[facility], [place] [phone] CBCon 09-12-2016 Erythrocyte distribution width Auto Ratio (RBC) 13.5 % Normal 11.5 - 14.5 [facility] Comment on above: Performed By: #### P TINR ####[facility], [place] [phone] Erythrocytes (RBC) 3.86 x10E12/L Low 4.00 - 5.20 [facility] Comment on above: Performed By: #### P TINR ####[facility], [place] [phone] Hematocrit (HCT) 33.4 % Low 36.0 - 46.0 [facility] Comment on above: Performed By: #### P TINR ####[facility], [place] [phone] Hemoglobin mass conc (Bld) 11.1 g/dL Low 12.0 - 16.0 [facility] Comment on above: Performed By: #### P TINR ####[facility], [place] [phone] MCHC mass conc (RBC) 33.2 g/dL Normal 32.0 - 36.0 [facility] Comment on above: Performed By: #### P TINR ####[facility], [place] [phone] MCV 87 fL Normal 80 - 100 [facility] Comment on above: Performed By: #### P TINR ####[facility], [place] [phone] Platelets 186 10*3/uL Normal 150 - 450 [facility] Comment on above: Performed By: #### P TINR ####[facility], [place] [phone] WBC (Leukocytes) 6.3 10*3/uL Normal 4.4 - 11.3 [facility] Comment on above: Performed By: #### P TINR ####[facility], [place] [phone] TSHon 09-12-2016 Thyroid stimulating hormone (TSH) 0.30 m[IU]/L Low 0.44 - 3.98 [facility] Comment on above: Result Comment: TSH testing is performed using different testing methodology at [facility] than at other [facility]. Direct result comparisons should only be made within the same method. Performed By: #### P TINR ####[facility], [place] [phone] DRUG SCREEN,URINEon 09-12-19 17 COCAINE METABOLITE Negative Normal NEGATIVE [facility] Comment on above: Result Comment: CUTO FF LEVEL: 150 NG/ML Senior Windows Engineer drug: Benzoylecgonine(cocaine metabolite) Performed By: #### P TINR ####[facility], [place] [phone] DRUG SCREEN COMMENT SEE BELOW Normal [facility] Comment on above: Result Comment: POSI TIVE CUTOFFS ARE BASED ON REACTIVITY WITH A WIRELESS DEVELOPMENT MANAGER MEMBER OF DRUG CLASS. MEMBERS OF THE [...] IS REQUESTED. Performed By: #### P TINR ####[facility], [place] [phone] OXYCODONE Positive Abnormal NEGATIVE [facility] Comment on above: Result Comment: CUTO FF LEVEL:100 NG/ML Senior Windows Engineer drug: Oxycodone This test will accurately detect both oxycodone and oxymorphone. Performed By: #### P TINR ####[facility], [place] [phone] PCP Negative Normal NEGATIVE [facility] Comment on above: Result Comment: CUTO FF LEVEL: 25 NG/ML Senior Windows Engineer drug: Phencyclidine(PCP) Cross-reactivity has been reported with dextromethorphan. Performed By: #### P TINR ####[facility], [place] [phone] URINE BARBITURATES Negative Normal NEGATIVE [facility] Comment on above: Result Comment: CUTO FF LEVEL:200 NG/ML Senior Windows Engineer drug: Secobarbital Performed By: #### P TINR ####[facility], [place] [phone] Urine, amphetamines presence Negative Normal NEGATIVE [facility] Comment on above: Result Comment: CUTO FF LEVEL: 500 NG/ML Senior Windows Engineer drug: d-Methamphetamine Cross-reactivity has been reported with high concentrations of the following drugs: buproprion, chloroquine, chlorpromazine, ephedrine, mephentermine, fenfluramine, phentermine, phenylpropanolamine, pseudoephedrine, and propranolol. Performed By: #### P TINR ####[facility], [place] [phone] Urine, benzodiazepines presence Negative Normal NEGATIVE [facility] Comment on above: Result Comment: CUTO FF LEVEL:200 NG/ML Senior Windows Engineer drug: Lormetazepam Performed By: #### P TINR ####[facility], [place] [phone] Urine, cannabinoids presence Positive Abnormal NEGATIVE [facility] Comment on above: Result Comment: CUTO FF LEVEL:50 NG/ML Senior Windows Engineer dru23-ork-vtoqe0-THC-9carboxylic acid Performed By: #### P TINR ####[facility] [phone] Urine, methadone presence Negative Normal NEGATIVE [facility] Comment on above: Result Comment: CUTO FF LEVEL: 150 NG/ML Senior Windows Engineer drug: Methadone The metabolite Z-ehpmu-iuehjqheksmbve (LAAM) is not detected by this method in concentrations that would be found in the urine of patients on LAAM therapy. Performed By: #### P TINR ####[facility], [place] [phone] Urine, opiates presence Negative Normal NEGATIVE [facility] Comment on above: Result Comment: CUTO FF LEVEL: 300 NG/ML Senior Windows Engineer Drug: Morphine This assay shows poor reactivity with synthetic opioids such as oxycodone and fentanyl. Cross-reactivity has been reported at high doses of meperidine. Performed By: #### P TINR ####[facility], [place] [phone] HEPATITIS PANEL,ACUTE (HCFA) on 09-11-2016 HEP.B SURFACE AG NONREACTIVE Normal NONREACTIVE [facility] Comment on above: Result Comment: Brisa ents receiving more than 5 mg/day of biotin may have interference in test results. A sample should be taken no sooner than eight hours after previous dose. Contact [phone] for additional information. Performed By: #### P TINR ####[facility], [place] [phone] HEPATITIS A AB-IGM NON-REACTIVE Normal NONREACTIVE [facility] Comment on above: Result Comment: Brisa ents receiving more than 5 mg/day of biotin may have interference in test results. A sample should be taken no sooner than eight hours after previous dose. Contact [phone] for additional information. Performed By: #### P TINR ####[facility], [place] [phone] HEPATITIS B CORE AB,IGM NON-REACTIVE Normal NONREACTIVE [facility] Comment on above: Result Comment: Brisa ents receiving more than 5 mg/day of biotin may have interference in test results. A sample should be taken no sooner than eight hours after previous dose. Contact [phone] for additional information. Performed By: #### P TINR ####[facility], [place] [phone] HEPATITIS C AB NON-REACTIVE Normal NONREACTIVE [facility] Comment on above: Result Comment: Brisa ents receiving more than 5 mg/day of biotin may have interference in test results. A sample should be taken no sooner than eight hours after previous dose. Contact [phone] for additional information. Performed By: #### P TINR ####[facility], [place] [phone] UA MICROSCOPICon 09-11-2016 Erythrocytes (RBC) 0-5 Normal 0-5 [facility] Comment on above: Performed By: #### P TINR ####[facility], [place] [phone] SQUAMOUS EPITH. CELLS 1+ /HPF Normal [facility] Comment on above: Performed By: #### P TINR ####[facility], [place] [phone] Urine, mucus presence in sediment 2+ /LPF Normal [facility] Comment on above: Performed By: #### P TINR ####[facility], [place] [phone] WBC (Leukocytes) 0-5 Normal 0-5 [facility] Comment on above: Performed By: #### P TINR ####[facility], [place] [phone] URINALYSISon 09-11-2016 Urine, appearance CLEAR Normal CLEAR [facility] Comment on above: Performed By: #### P TINR ####[facility], [place] [phone] Urine, color YELLOW Normal STRAW,YELLOW [facility] Comment on above: Performed By: #### P TINR ####[facility], [place] [phone] Bilirubin (total) MODERATE(2+) Abnormal NEGATIVE [facility] Comment on above: Performed By: #### P TINR ####[facility], [place] [phone] BLOOD Negative Normal NEGATIVE [facility] Comment on above: Performed By: #### P TINR ####[facility], [place] [phone] Glucose mass conc Negative Normal NEGATIVE [facility] Comment on above: Performed By: #### P TINR ####[facility], [place] [phone] pH of blood 5.0 [pH] Normal 5.0 - 8.0 [facility] Comment on above: Performed By: #### P TINR ####[facility], [place] [phone] Protein 30(1+) Abnormal NEGATIVE [facility] Comment on above: Performed By: #### P TINR ####[facility], [place] [phone] Urine, ketones presence Negative Normal NEGATIVE [facility] Comment on above: Performed By: #### P TINR ####[facility], [place] [phone] Urine, leukocyte esterase presence Negative Normal NEGATIVE [facility] Comment on above: Performed By: #### P TINR ####[facility], [place] [phone] Urine, nitrite presence Negative Normal NEGATIVE [facility] Comment on above: Performed By: #### P TINR ####[facility], [place] [phone] Urine, specific gravity 1.005 Normal 1.005 - 1.035 [facility] Comment on above: Performed By: #### P TINR ####[facility], [place] [phone] Urine, urobilinogen <2.0 Normal 0.0 - 1.9 [facility] Comment on above: Performed By: #### P TINR ####[facility], [place] [phone] ALCOHOLon 09-10-2016 Ethanol Canceled Normal [facility] Comment on above: Order Comment: TEST ALCOHOL WAS CANCELLED, 09/10/2016 16:20 DUPLICATE ORDER See [id number] CANCELLED PER NURSE/DOCTOR. RN - AllSamir 09/10/2016 16:20. Result Comment: FOR MEDICAL USE ONLY. Performed By: #### A LC ####[facility], [place] [phone] Ethanol mg/dL Normal [facility] Comment on above: Result Comment: FOR MEDICAL USE ONLY..REF VALUES <10 Performed By: #### A LC ####[facility], [place] [phone] CBCon 09-10-2016 Erythrocyte distribution width Auto Ratio (RBC) Canceled Normal [facility] Comment on above: Order Comment: TEST CBC WAS CANCELLED, 09/10/2016 16:20 DUPLICATE ORDER See order [id number] CANCELLED PER NURSE/DOCTOR. RN - Horace 09/10/2016 16:20. Performed By: #### C BC ####[facility], [place] [phone] Erythrocytes (RBC) Canceled Normal [facility] Comment on above: Order Comment: TEST CBC WAS CANCELLED, 09/10/2016 16:20 DUPLICATE ORDER See order [id number] CANCELLED PER NURSE/DOCTOR. RN - Horace 09/10/2016 16:20. Performed By: #### C BC ####[facility], [place] [phone] Hematocrit (HCT) Canceled Normal [facility] Comment on above: Order Comment: TEST CBC WAS CANCELLED, 09/10/2016 16:20 DUPLICATE ORDER See order [id number] CANCELLED PER NURSE/DOCTOR. RN - Horace 09/10/2016 16:20. Performed By: #### C BC ####[facility], [place] [phone] Hemoglobin mass conc (Bld) Canceled Normal [facility] Comment on above: Order Comment: TEST CBC WAS CANCELLED, 09/10/2016 16:20 DUPLICATE ORDER See order [id number] CANCELLED PER NURSE/DOCTOR. RN - Horace 09/10/2016 16:20. Performed By: #### C BC ####[facility], [place] [phone] MCHC mass conc (RBC) Canceled Normal [facility] Comment on above: Order Comment: TEST CBC WAS CANCELLED, 09/10/2016 16:20 DUPLICATE ORDER See order [id number] CANCELLED PER NURSE/DOCTOR. RN - Horace 09/10/2016 16:20. Performed By: #### C BC ####[facility], [place] [phone] MCV Canceled Normal [facility] Comment on above: Order Comment: TEST CBC WAS CANCELLED, 09/10/2016 16:20 DUPLICATE ORDER See order [id number] CANCELLED PER NURSE/DOCTOR. RN - Horace 09/10/2016 16:20. Performed By: #### C BC ####[facility], [place] [phone] Nucleated erythrocytes Canceled Normal [facility] Comment on above: Order Comment: TEST CBC WAS CANCELLED, 09/10/2016 16:20 DUPLICATE ORDER See order [id number] CANCELLED PER NURSE/DOCTOR. RN - Horace 09/10/2016 16:20. Performed By: #### C BC ####[facility], [place] [phone] Platelets Canceled Normal [facility] Comment on above: Order Comment: TEST CBC WAS CANCELLED, 09/10/2016 16:20 DUPLICATE ORDER See order [id number] CANCELLED PER NURSE/DOCTOR. RN - Horace 09/10/2016 16:20. Performed By: #### C BC ####[facility], [place] [phone] WBC (Leukocytes) Canceled Normal [facility] Comment on above: Order Comment: TEST CBC WAS CANCELLED, 09/10/2016 16:20 DUPLICATE ORDER See order [id number] CANCELLED PER NURSE/DOCTOR. KAIN Vu 09/10/2016 16:20. Performed By: #### C BC ####[facility], [place] [phone] Erythrocyte distribution width Auto Ratio (RBC) 13.5 % Normal 11.5 - 14.5 [facility] Comment on above: Performed By: #### C BC ####[facility], [place] [phone] Erythrocytes (RBC) 4.35 x10E12/L Normal 4.00 - 5.20 [facility] Comment on above: Performed By: #### C BC ####[facility], [place] [phone] Hematocrit (HCT) 37.6 % Normal 36.0 - 46.0 [facility] Comment on above: Performed By: #### C BC ####[facility], [place] [phone] Hemoglobin mass conc (Bld) 12.6 g/dL Normal 12.0 - 16.0 [facility] Comment on above: Performed By: #### C BC ####[facility], [place] [phone] MCHC mass conc (RBC) 33.5 g/dL Normal 32.0 - 36.0 [facility] Comment on above: Performed By: #### C BC ####[facility], [place] [phone] MCV 86 fL Normal 80 - 100 [facility] Comment on above: Performed By: #### C BC ####[facility], [place] [phone] Platelets 238 10*3/uL Normal 150 - 450 [facility] Comment on above: Performed By: #### C BC ####[facility], [place] [phone] WBC (Leukocytes) 7.7 10*3/uL Normal 4.4 - 11.3 [facility] Comment on above: Performed By: #### C BC ####[facility], [place] [phone] COMPREHENSIVE PANELon 2016 Alanine aminotransferase (ALT) Canceled Normal [facility] Comment on above: Order Comment: TEST COMPREHENSIVE PANEL WAS CANCELLED, 09/10/2016 16:20 DUPLICATE ORDER Seeorder [id number] CANCELLED PER NURSE/DOCTOR. RN - [facility] [place] 09/10/2016 16:20. Result Comment: Brisa ents treated with Sulfasalazine may generate falsely decreased results for ALT. Performed By: #### C MP ####[facility], [place] [phone] Albumin Canceled Normal [facility] Comment on above: Order Comment: TEST COMPREHENSIVE PANEL WAS CANCELLED, 09/10/2016 16:20 DUPLICATE ORDER Seeorder [id number] CANCELLED PER NURSE/DOCTOR. RN - AllisonCHANDRIKA 09/10/2016 16:20. Performed By: #### C MP ####[facility], [place] [phone] Alkaline phosphatase (ALP) Canceled Normal [facility] Comment on above: Order Comment: TEST COMPREHENSIVE PANEL WAS CANCELLED, 09/10/2016 16:20 DUPLICATE ORDER Seeorder [id number] CANCELLED PER NURSE/DOCTOR. RN - AllisonCHANDRIKA 09/10/2016 16:20. Performed By: #### C MP ####[facility], [place] [phone] Anion gap Canceled Normal [facility] Comment on above: Order Comment: TEST COMPREHENSIVE PANEL WAS CANCELLED, 09/10/2016 16:20 DUPLICATE ORDER Seeorder [id number] CANCELLED PER NURSE/DOCTOR. RN - AllSamir 09/10/2016 16:20. Performed By: #### C MP ####[facility], [place] [phone] Aspartate aminotransferase (AST) Canceled Normal [facility] Comment on above: Order Comment: TEST COMPREHENSIVE PANEL WAS CANCELLED, 09/10/2016 16:20 DUPLICATE ORDER Seeorder [id number] CANCELLED PER NURSE/DOCTOR. RN - Horace 09/10/2016 16:20. Performed By: #### C MP ####[facility], [place] [phone] Bicarbonate (HCO3) Canceled Normal [facility] Comment on above: Order Comment: TEST COMPREHENSIVE PANEL WAS CANCELLED, 09/10/2016 16:20 DUPLICATE ORDER Seeorder [id number] CANCELLED PER NURSE/DOCTOR. RN - Fran 09/10/2016 16:20. Performed By: #### C MP ####[facility], [place] [phone] Bilirubin (total) Canceled Normal [facility] Comment on above: Order Comment: TEST COMPREHENSIVE PANEL WAS CANCELLED, 09/10/2016 16:20 DUPLICATE ORDER Seeorder [id number] CANCELLED PER NURSE/DOCTOR. RN - Horace 09/10/2016 16:20. Performed By: #### C MP ####[facility], [place] [phone] Calcium Canceled Normal [facility] Comment on above: Order Comment: TEST COMPREHENSIVE PANEL WAS CANCELLED, 09/10/2016 16:20 DUPLICATE ORDER Seeorder [id number] CANCELLED PER NURSE/DOCTOR. RN - Horace 09/10/2016 16:20. Performed By: #### C MP ####[facility], [place] [phone] Chloride Canceled Normal [facility] Comment on above: Order Comment: TEST COMPREHENSIVE PANEL WAS CANCELLED, 09/10/2016 16:20 DUPLICATE ORDER Seeorder [id number] CANCELLED PER NURSE/DOCTOR. RN - Horace 09/10/2016 16:20. Performed By: #### C MP ####[facility], [place] [phone] Creatinine Canceled Normal [facility] Comment on above: Order Comment: TEST COMPREHENSIVE PANEL WAS CANCELLED, 09/10/2016 16:20 DUPLICATE ORDER Seeorder [id number] CANCELLED PER NURSE/DOCTOR. RN - Horace 09/10/2016 16:20. Performed By: #### C MP ####[facility] [facility], [place] [phone] eGFR (non-black) Canceled Normal [facility] Comment on above: Order Comment: TEST COMPREHENSIVE PANEL WAS CANCELLED, 09/10/2016 16:20 DUPLICATE ORDER Seeorder [id number] CANCELLED PER NURSE/DOCTOR. RN - Horace 09/10/2016 16:20. Performed By: #### C MP ####[facility], [place] [phone] Result Comment: CALC ULATIONS OF ESTIMATED GFR ARE PERFORMED USING THE MDRD STUDY EQUATION FOR THE IDMS-TRACEABLE CREATININE METHODS. CLIN CHEM 2007;53:766-72 Glucose mass conc Canceled Normal [facility] Comment on above: Order Comment: TEST COMPREHENSIVE PANEL WAS CANCELLED, 09/10/2016 16:20 DUPLICATE ORDER Seeorder [id number] CANCELLED PER NURSE/DOCTOR. RN - Horace 09/10/2016 16:20. Performed By: #### C MP ####[facility], [place] [phone] Potassium molar conc Canceled Normal [facility] Comment on above: Order Comment: TEST COMPREHENSIVE PANEL WAS CANCELLED, 09/10/2016 16:20 DUPLICATE ORDER Seeorder [id number] CANCELLED PER NURSE/DOCTOR. RN - Horace 09/10/2016 16:20. Performed By: #### C MP ####[facility], [place] [phone] Protein Canceled Normal [facility] Comment on above: Order Comment: TEST COMPREHENSIVE PANEL WAS CANCELLED, 09/10/2016 16:20 DUPLICATE ORDER Seeorder [id number] CANCELLED PER NURSE/DOCTOR. RN - [facility] 09/10/2016 16:20. Performed By: #### C MP ####[facility], [place] [phone] Sodium Canceled Normal [facility] Comment on above: Order Comment: TEST COMPREHENSIVE PANEL WAS CANCELLED, 09/10/2016 16:20 DUPLICATE ORDER Seeorder [id number] CANCELLED PER NURSE/DOCTOR. RN - [facility] 09/10/2016 16:20. Performed By: #### C MP ####[facility], [place] [phone] Urea nitrogen Canceled Normal [facility] Comment on above: Order Comment: TEST COMPREHENSIVE PANEL WAS CANCELLED, 09/10/2016 16:20 DUPLICATE ORDER Seeorder [id number] CANCELLED PER NURSE/DOCTOR. RN - AllisonAGR 09/10/2016 16:20. Performed By: #### C MP ####[facility], [place] [phone] Alanine aminotransferase (ALT) 13 U/L Normal 7 - 45 [facility] Comment on above: Result Comment: Brisa ents treated with Sulfasalazine may generate falsely decreased results for ALT. Performed By: #### C MP ####[facility], [place] [phone] Albumin 4.6 g/dL Normal 3.4 - 5.0 [facility] Comment on above: Performed By: #### C MP ####[facility], [place] [phone] Alkaline phosphatase (ALP) 56 U/L Normal 33 - 110 [facility] Comment on above: Performed By: #### C MP ####[facility], [place] [phone] Anion gap 10 mmol/L Normal 10 - 20 [facility] Comment on above: Performed By: #### C MP ####[facility], [place] [phone] Aspartate aminotransferase (AST) 19 U/L Normal 9 - 39 [facility] Comment on above: Performed By: #### C MP ####[facility], [place] [phone] Bicarbonate (HCO3) 28 mmol/L Normal 21 - 32 [facility] Comment on above: Performed By: #### C MP ####[facility], [place] [phone] Bilirubin (total) 0.2 mg/dL Normal 0.0 - 1.2 [facility] Comment on above: Performed By: #### C MP ####[facility], [place] [phone] Calcium 9.8 mg/dL Normal 8.6 - 10.3 [facility] Comment on above: Performed By: #### C MP ####[facility], [place] [phone] Chloride 105 mmol/L Normal 98 - 107 [facility] Comment on above: Performed By: #### C MP ####[facility], [place] [phone] Creatinine 0.63 mg/dL Normal 0.50 - 1.05 [facility] Comment on above: Performed By: #### C MP ####[facility], [place] [phone] eGFR (non-black) mL/min/{1.73_m2} Normal >60 [facility] Comment on above: Performed By: #### C MP ####[facility], [place] [phone] Result Comment: CALC ULATIONS OF ESTIMATED GFR ARE PERFORMED USING THE MDRD STUDY EQUATION FOR THE IDMS-TRACEABLE CREATININE METHODS. CLIN CHEM 2007;53:766-72 Glucose mass conc 112 mg/dL High 74 - 99 [facility] Comment on above: Performed By: #### C MP ####[facility], [place] [phone] Potassium molar conc 3.9 mmol/L Normal 3.5 - 5.3 [facility] Comment on above: Performed By: #### C MP ####[facility], [place] [phone] Protein 7.5 g/dL Normal 6.4 - 8.2 [facility] Comment on above: Performed By: #### C MP ####[facility], [place] [phone] Sodium 139 mmol/L Normal 136 - 145 [facility] Comment on above: Performed By: #### C MP ####[facility], [place] [phone] Urea nitrogen 10 mg/dL Normal 6 - 23 [facility] Comment on above: Performed By: #### C MP ####[facility], [place] [phone] HCG,BETA-QUANTITATIVEon HCG,BETA-QUANTITA TIVE Canceled Normal [facility] Comment on above: Order Comment: TEST HCG,BETA-QUANTITATIVE WAS CANCELLED, 09/10/2016 16:22 DUPLICATE ORDERSee order [id number] CANCELLED PER NURSE/DOCTOR. RN - Horace 09/10/2016 16:22. Result Comment: Low- level positive [...] HCG measurement is performed using the Mar[employer] Access Immunoassay which detects intact HCG and free beta HCG subunit. This test is not indicated for use as a tumor marker. HCG testing is performed using a different test methodology at [facility] than other physicians [facility] surgeons hospital. Direct result comparison should only be made within the same method. Performed By: #### P TINR ####[facility], [place] [phone] HCG,BETA-QUANTITA TIVE <2 Normal [facility] Comment on above: Result Comment: [...] HCG measurement is performed using the Marielle Paradise Access Immunoassay which detects intact HCG and free beta HCG subunit. This test is not indicated for use as a tumor marker. HCG testing is performed using a different test methodology at [facility] than other [facility] surgeons hospital. Direct result comparison should only be made within the same method.REF VALUESNON FEMALE <5MALES <5 Performed By: #### H CGQU ####[facility], [place] [phone] HEPATITIS PANEL,ACUTE (HCFA) on 09-10-2016 Lab Specimen Source Normal [facility] Comment on above: Performed By: #### P TINR ####[facility], [place] [phone] MAGNESIUMon 09-10-2016 Magnesium 2.01 mg/dL Normal 1.60 - 2.40 [facility] Comment on above: Performed By: #### M G ####[facility], [place] [phone] PHOSPHORUSon 09-10-2016 Phosphate 2.6 mg/dL Normal 2.5 - 4.9 [facility] Comment on above: Result Comment: The performance characteristics of phosphorus testing in heparinized plasma have been validated by the individual laboratory site where testing is performed. Testing on heparinized plasma is not approved by the FDA; however, such approval is not necessary. Performed By: #### P HOS ####[facility], [place] [phone] PT/INRon 09-10-2016 INR Coag RelTime (PPP) Canceled Normal [facility] Comment on above: Order Comment: TEST PT/INR WAS CANCELLED, 09/10/2016 16:20 DUPLICATE ORDER See [id number] CANCELLED PER NURSE/DOCTOR. RN - Horace 09/10/2016 16:20. Performed By: #### P TINR ####[facility], [place] [phone] Prothrombin time (PT) Coag time (PPP) Canceled Normal [facility] Comment on above: Order Comment: TEST PT/INR WAS CANCELLED, 09/10/2016 16:20 DUPLICATE ORDER See [id number] CANCELLED PER NURSE/DOCTOR. RN - Horace 09/10/2016 16:20. Result Comment: NOTE NEW REFERENCE RANGE. Performed By: #### P TINR ####[facility], [place] [phone] INR Coag RelTime (PPP) 1.0 {INR} Normal 0.9 - 1.1 [facility] Comment on above: Performed By: #### P TINR ####[facility], [place] [phone] Prothrombin time (PT) Coag time (PPP) 11.4 s Normal 9.8 - 12.7 [facility] Comment on above: Result Comment: NOTE NEW REFERENCE RANGE. Performed By: #### P TINR ####[facility], [place] [phone] Vital Signs Date Time Vital Sign Value Performing Clinician Facility 12-25-2023 14:42-0500 Body height 170.2 cm Willow Medinabelgica GARCIAN-COTTON CLASSER Work Phone: [facility] 12-25-2023 14:42-0500 Body mass index (BMI) [Ratio] 29.35 kg/m2 Willowdanilo Medinaoll LANDSCAPE ARCHITECTURE PROFESSOR-COTTON CLASSER Work Phone: [facility] 12-25-2023 14:42-0500 Body weight 85 kg Willow Medinaoll LANDSCAPE ARCHITECTURE PROFESSOR-COTTON CLASSER Work Phone: [facility] 12-25-2023 14:42-0500 Diastolic blood pressure 85 mm[Hg] Willow Medinaoll LANDSCAPE ARCHITECTURE PROFESSOR-COTTON CLASSER Work Phone: [facility] 12-25-2023 14:42-0500 Heart rate 87 /min Willowdanilo Medinaoll LANDSCAPE ARCHITECTURE PROFESSOR-COTTON CLASSER Work Phone: [facility] 12-25-2023 14:42-0500 Systolic blood pressure 134 mm[Hg] Willowdanilo Medinaoll LANDSCAPE ARCHITECTURE PROFESSOR-COTTON CLASSER Work Phone: [facility] 10-30-2023 13:00-0400 Body mass index (BMI) [Ratio] 29.13 kg/m2 Jennifer Worley DO Work Phone: [facility] 10-30-2023 13:00-0400 Body weight 84.37 kg Jennifer Worley DO Work Phone: [facility] 10-30-2023 13:00-0400 Diastolic blood pressure 80 mm[Hg] Jennifer Quintanai DO Work Phone: [facility] 10-30-2023 13:00-0400 Systolic blood pressure 132 mm[Hg] Jennifer Quintanai DO Work Phone: [facility] 07-10-2022 20:42-0400 Body temperature 97.7 [degF] Frank Fady [facility] 07-10-2022 20:42-0400 Diastolic blood pressure 87 mm[Hg] Frank Fady [facility] 07-10-2022 20:42-0400 Heart rate 101 /min Frank Fady [facility] 07-10-2022 20:42-0400 Respiratory rate 20 /min Frank Fady [facility] 07-10-2022 20:42-0400 SaO2% (BldA) [Mass fraction] 99 % Frank Fady [facility] 07-10-2022 20:42-0400 Systolic blood pressure 144 mm[Hg] Frank Fady [facility] Encounters Encounter Date Encounter Type Care Provider Facility Start: 02-18-2024 End: 02-18-2024 Orders Only Not In System Ref Prov [facility] Start: 01-28-2024 End: 01-28-2024 ambulatory [place] [facility] Start: 01-20-2024 End: 01-20-2024 Orders Only Not In System Ref Prov [facility] Start: 01-14-2024 End: 01-14-2024 Orders Only Lexy Heller [facility] Comment on above: Abdominal pain, gene ralized Start: 01-05-2024 End: 01-05-2024 Refill Willow Palacios LANDSCAPE ARCHITECTURE PROFESSOR-COTTON CLASSER Work Phone: [facility] Comment on above: Gastroesophageal ref lux disease, unspecified whether esophagitis present Start: 12-25-2023 End: 12-25-2023 ambulatory [facility] Start: 12-25-2023 End: 12-25-2023 Office outpatient visit 15 minutes Willow Palacios LANDSCAPE ARCHITECTURE [facility] Work Phone: [facility] Comment on above: Abdominal pain, gene ralized (Primary Dx); Gastroesophageal reflux disease, unspecified whether esophagitis present; Rectal bleeding; Incarcerated ventral hernia; Marijuana use; Tobacco abuse; Encounter to establish care with new doctor Start: 12-09-2023 End: 12-09-2023 Telephone encounter Karolyn Barragan CMA [facility] Start: 12-08-2023 End: 12-08-2023 Orders Only Not In System Ref Prov [facility] Start: 12-03-2023 End: 12-03-2023 Orders Only Lexy Heller [facility] Comment on above: Abdominal pain, gene ralized; Rectal bleeding; Gastroesophageal reflux disease, unspecified whether esophagitis present Start: 11-26-2023 End: 11-26-2023 ambulatory [facility] Work Phone: [facility] Work Phone: Start: 11-26-2023 End: 11-26-2023 Departed [facility] Work Phone: [facility] Start: 11-06-2023 End: 11-06-2023 ambulatory [facility] Start: 10-30-2023 End: 10-30-2023 Office outpatient visit 15 minutes Jennifer Worley DO Work Phone: [facility] Comment on above: Mood swings (Primary Dx); Hot flashes; Abnormal weight gain; Night sweats; Amenorrhea; Hair loss; Anxiety, generalized (CMS/HCC); Other depression (CMS/HCC) Start: 10-30-2023 End: 10-30-2023 ambulatory JENNIFER A VISCI Not Available Start: 10-05-2023 End: 10-06-2023 Telephone encounter Jennifer A Visci DO Work Phone: [facility] Start: 09-18-2023 End: 09-18-2023 ambulatory JENNIFER A VISCI Not Available Start: 07-23-2023 End: 07-23-2023 ambulatory JENNIFER A VISCI Not Available Start: 07-22-2023 End: 07-22-2023 ambulatory ERICA BROWN Not Available Start: 03-20-2023 End: 03-20-2023 Patient encounter procedure [facility] Work Phone: [facility] Work Phone: Start: 03-20-2023 End: 03-20-2023 ambulatory [facility] Work Phone: [facility] Work Phone: Start: 07-10-2022 End: 07-10-2022 Emergency department patient visit Frank AlejandraHue Shrestha [facility] Start: 07-10-2022 End: 07-10-2022 Emergency department patient visit Frank Shrestha [facility] Start: 10-22-2016 End: 10-22-2016 Ambulatory Fabian Xiao Facility: [facility] Start: 09-10-2016 End: 09-13-2016 Evaluation and management of inpatient Micheline Medina Facility:[facility] Start: 09-10-2016 Ambulatory Micheline Medina Fac ility:[facility] Procedures Date Procedure Procedure Detail Performing Clinician Start: 02-18-2024 Ecg routine ecg w/le ast 12 lds trcg only w/o i&r Not In System Ref Prov Start: 01-14-2024 End: 01-14-2024 Colonoscopy Willow Palacios LANDSCAPE ARCHITECTURE PROFESSOR-COTTON CLASSER Work Phone: Start: 01-14-2024 Level i surg patholo gy gross examination only Not In System Ref Prov Start: 01-14-2024 Urine test visual color cmprsn meths Not In System Ref Prov Start: 11-26-2023 EGD / COLONOSCOPY Jose Miller DO Work Phone: Start: 11-26-2023 Level i surg patholo gy gross examination only Not In System Ref Prov Start: 11-06-2023 Follow-up visit Follow-up WILLOW PALACIOS Start: 03-20-2023 Pelvic echography [employer] Work Phone: Start: 03-20-2023 Transvaginal echography [employer] Work Phone: Start: 03-20-2023 Screening mammograph y of bilateral breasts [employer] Work Phone: Tonsillectomy Tonsillectomy Frank Shrestha Plan of Treatment Date Care Activity Detail Author Start: 01-13-2029 Screening for malign ant neoplasm of colon Colonoscopy [facility] Start: 02-08-2025 Tobacco Screening Tobacco Screening [facility] Start: 01-27-2025 Adult BMI Screening Adult BMI Screen ing [facility] Start: 12-24-2024 Adult BMI Screening Adult BMI Screen ing [facility] Start: 12-24-2024 Tobacco Screening Tobacco Screening [facility] Start: 11-05-2024 Adult BMI Screening Adult BMI Screen ing [facility] Start: 11-05-2024 Tobacco Screening Tobacco Screening [facility] Start: 03-09-2024 End: 03-09-2024 Patient encounter procedure 03/09/2024 2:00 PM EST Office Visit [facility] [address] [place] [phone] Willow Palacios, LANDSCAPE ARCHITECTURE PROFESSOR-COTTON CLASSER [address] [place], [place] [phone] [facility] Start: 02-09-2024 End: 02-09-2024 Anesthesia consultation 02/09/2024 11:59 PM EST Anesthesia Event [facility] [address] [place] [phone] Cody Rocha, DO [address] [facility] [place] [address] [facility] Start: 01-28-2024 End: 01-28-2024 Patient encounter procedure 01/28/2024 2:30 PM EST Office Visit [facility] [address] [place] [phone] Anna Miller, DO [address] [place] [address] [facility] Start: 12-25-2023 End: 12-25-2023 Patient encounter procedure 12/25/2023 2:30 PM EST Office Visit [facility] [address] [place] [phone] Willow Palacios, LANDSCAPE ARCHITECTURE PROFESSOR-COTTON CLASSER [address] [place] [address] [facility] Start: 10-30-2023 End: 10-30-2023 Patient encounter procedure 10/30/2023 1:00 PM EDT Office Visit [facility] [address] [place] [address] Jennifer Worley, DO [address] [place] [address] [facility] Start: 10-12-2023 Influenza vaccination [facility] Start: 2018 Screening for malign ant neoplasm of breast Mammogram [facility] Start: 2008 Screening for malign ant neoplasm of cervix [facility] Start: 08-19-1999 Screening for malign ant neoplasm of cervix Pap Smear [facility] Start: 1997 DTaP,Tdap and Td Vaccines (1 - Tdap) DTaP,Tdap and Td Vaccines (1 - Tdap) [facility] Start: 1996 Adult BMI Follow Up Plan Adult BMI [facility] Plan [facility] Start: 1990 Depression [facility]ening [facility] Start: 1978 Screening for malign ant neoplasm of colon [facility] Start: 1978 Tobacco Counseling Tobacco Counselin mehreen [facility] End: 12-24-2024 Colonoscopy Colonoscopy GI Routine Abdominal pain, generalized 1 Occurrences starting 12/25/2023 until 12/24/2024 [employer] Work Phone: Comment on above: 1 Occurrences starti ng 12/25/2023 until 12/24/2024 Payers Date Payer Category Payer Self-pay [id number] 2022 Medicaid [id number] 2022 Medicaid [id number] 2016 Unknown [id number] 1978 Unknown [id number] 2.16.8 [id number] 1978 Unknown [id number] 2.16.84 [id number] 1978 Unknown [id number] 2.16.84 0.1.554891.3.579.2.9 1978 Unknown [id number] 2.16.84 [id number] 1978 Unknown [id number] 2.16.84 [id number] 1978 Unknown [id number] 2.16.8 [id number] 1978 Unknown [id number] 2.16.8 [id number] 1978 Unknown [id number] 2.16.8 [id number] Medicaid [id number] Unknown [id number] 2.16.8 [id number] Unknown [id number] 2.16.8 [id number] Unknown [id number] 2.16.8 [id number] Social History Date Type Detail Facility Tobacco smoking status NHIS Unknown if ever smoked [facility] Start: 1980 Sex Assigned At Female [facility] Start: 03-07-2019 Tobacco smoking status Heavy tobacco smoker (finding) [facility] Comment on above: 1 ppd smoker Start: 11-06-2023 End: 01-28-2024 Sex Assigned At Female [facility] Start: 01-01-2023 Tobacco smoking status NHIS Smokes tobacco daily [facility] History of tobacco use Cigarette Smoker [facility] Start: 01-01-2023 End: 07-22-2023 Tobacco use and exposure Smokeless tobacco non-user [facility] Start: 11-06-2023 End: 02-09-2024 Alcoholic beverage intake Lifetime non-drinker (finding) [facility] Start: 11-06-2023 End: 01-28-2024 History of Social function [facility] Within the past 12 months we worried whether our food would run out before we got money to buy more. Never True [facility] Start: 1980 Sex assigned at Not on file [facility] Start: 11-26-2022 Sex Female (finding) [facility] Start: 07-22-2023 Tobacco smoking status NHIS Occasional tobacco smoker [facility] NEGATED: Highlighted rowStart: NINF History of tobacco use Passive smoker [facility] Goals Date Patient Goal Desired Activity /State Functional Status Date Assessment Result Facility 07-10-2022 Functional Status N/A [facility] Clinical Notes 07-10-2022 to 01-20-2024 Telephone Encounter - Karolyn Barragan CMA - 01/20/2024 1:37 PM ESTTelephone Encounter - Karolyn Barragan CMA - 01/20/2024 1:37 PM ESTTelephone Encounter - Karolyn Barragan CMA - 01/20/2024 1:37 PM EST Note Date & Type Note Facility 01-20-2024 Miscellaneous Notes ----- Message from Dr. Anna Miller, sent at 01/20/2024 11:00 AM EST ----- Please call patient and let her know that she had a precancerous tubular adenoma and I recommend repeat colonoscopy in 5 years unless problems. Thanks, Dr. Sylvester Spoke with patient regarding pathology results. Patient verbally understood with no further questions. Recall to be put in chart. Will schedule patient for a follow up appointment with Dr. Miller for possible hernia repair. documented in this encounter [facility] 01-20-2024 Telephone encounter Note ----- Message from Dr. Anna Miller, sent at 01/20/2024 11:00 AM EST ----- Please call patient and let her know that she had a precancerous tubular adenoma and I recommend repeat colonoscopy in 5 years unless problems. Thanks, Dr. Sylvester [facility] 01-20-2024 Telephone encounter Note Spoke with patient regarding pathology results. Patient verbally understood with no further questions. Recall to be put in chart. Will schedule patient for a follow up appointment with Dr. Miller for possible hernia repair. [facility] 12-25-2023 History of Presen t illness Narrative Images from the original note were not included. Chief Complaint: Abdominal pain History of Present Illness Mariam Salinas is a 43 y.o. female who presents to the office with multiple complaints. She was seen by Dr. Miller back in December and was scheduled for [...] She underwent EGD and colonoscopy at [facility] on 11/26/2023. EGD revealed chronic gastritis. Colonoscopy [...] patient/family/caregiver Referring and communicating with other health acute care occupational therapist Abdominal pain, generalized [R10.84] WILLOW PALACIOS, LANDSCAPE ARCHITECTURE PROFESSOR-COTTON CLASSER [facility] [place] This note was created with the assistance of a speech recognition program. While intending to generate a timely document that accurately reflects the content of the visit, no guarantee can be provided that every grammatical or spelling mistake has been or will be identified or corrected. Thank you for your understanding. JAIRO Ortiz 12/25/234 documented in this encounter [facility] 12-09-2023 Miscellaneous Notes ----- Message from Dr. Anna Miller DO sent at 12/08/2023 2:42 PM EDT ----- Please let her know that she had mild inflammation of the stomach and I recommend her taking her pantoprazole regularly as needed. She needs to repeat her colonoscopy due to incomplete prep. Make sure they get scheduled. ThanksDr. Sylvester Spoke with patient regarding pathology results. Patient verbally understood and questions were answered. Patient is already scheduled to meet with Willow to reschedule her colonoscopy. documented in this encounter [facility] 12-09-2023 Telephone encounter Note ----- Message from Dr. Anna Miller DO sent at 12/08/2023 2:42 PM EDT ----- Please let her know that she had mild inflammation of the stomach and I recommend her taking her pantoprazole regularly as needed. She needs to repeat her colonoscopy due to incomplete prep. Make sure they get scheduled. ThanksDr. Sylvester [facility] 12-09-2023 Telephone encounter Note Spoke with patient regarding pathology results. Patient verbally understood and questions were answered. Patient is already scheduled to meet with Willow to reschedule her colonoscopy. [facility] 10-30-2023 History of Presen t illness Narrative Images from the original note were not included. Subjective Mariam Salinas is a 43 y.o. female Chief Complaint Patient presents with Follow-up 6 week follow up mood changes and weight gain. Stopped Prempro after 6 days- c/o insomnia, worsened hot flushes, increased mood swings, bloating. States Bijuva was the only Rx that has actually helped, but insurance did not cover it. Current Outpatient Medications: cloNIDine (Catapres) 0.1 MG tablet, Take 0.1 mg by mouth at bedtime, Disp: , Rfl: diphenhydrAMINE (BENADryl) 12.5 MG chewable tablet, Chew 12.5 mg every 6 (six) hours if needed for allergies, Disp: , Rfl: estrogen, conjugated,-medroxyPROGESTERon e (Prempro) 0.625-2.5 MG tablet, Take 1 tablet by mouth Daily, Disp: 30 tablet, Rfl: 11 hydrOXYzine pamoate (Vistaril) 50 MG capsule, TAKE 1 CAPSULE AT BEDTIME NEEDED FOR ANXIETY, Disp: , Rfl: Melatonin 1 MG capsule, Take by mouth, Disp: , Rfl: pantoprazole (ProtoNix) 20 MG EC tablet, Take 20 mg by mouth in the morning. Take before meals. Do not crush, chew, or split.., Disp: , Rfl: Zubsolv 5.7-1.4 MG SL tablet, , Disp: , Rfl: Past Medical History: Diagnosis Date Abdominal wall ulcer (CMS/HCC) Depression (CMS/HCC) GERD (gastroesophageal reflux disease) Hepatitis C (CMS/HCC) Hernia, umbilical Insomnia Opioid use disorder Past Surgical History: Procedure Laterality Date TONSILLECTOMY Family History Problem Relation Name Age of Onset Diabetes Father OB History Para Term AB Living 2 1 1 0 1 1 SAB IAB Ectopic Multiple Live Births 0 1 0 0 1 # Outcome Date GA Lbr Marcos/2nd Weight Sex Type Anes PTL Lv 2 IAB 1 Term Obstetric Comments Pap 03/11/23- Neg, HPV Neg Mammogram 03/20/23- Neg 03/11/23 FSH- 43.9, Prolactin 20.8, T4 1.15, TSH 1.44 Review of Systems All negative unless documented in treatment Objective Visit Vitals BP 132/80 Wt 186 lb BMI 29.13 kg/m OB Status Perimenopausal Smoking Status Some Days BSA 2 m No Known Allergies Physical Exam Constitutional: Appearance: Normal appearance. HENT: Head: Normocephalic and atraumatic. Cardiovascular: Rate and Rhythm: Normal rate and regular rhythm. Heart sounds: Normal heart sounds. Pulmonary: Effort: Pulmonary effort is normal. Breath sounds: Normal breath sounds. Musculoskeletal: Right lower leg: No edema. Left lower leg: No edema. Neurological: Mental Status: She is alert and oriented to person, place, and time. Skin: General: Skin is warm and dry. Findings: No rash. Psychiatric: Mood and Affect: Mood is anxious. Speech: Speech is rapid and pressured. Behavior: Behavior is agitated and hyperactive. Exam conducted with a physical chemist present. Procedures ICD-10-CM 1. Hot flashes R23.2 2. Abnormal weight gain R63.5 3. Night sweats R61 4. Mood swings R45.86 5. Amenorrhea N91.2 6. Hair loss L65.9 7. Anxiety, generalized (CMS/HCC) F41.1 8. Other depression (CMS/HCC) F32.89 U/S 03/20/23: 16mm fibroid, endometrial thickness 7mm, R ovary not visualized, LOC 18mm, no free fluid 03/11/23 FSH- 43.9, Prolactin 20.8, T4 1.15, TSH 1.44 07/23/23 Estradiol- 28, FSH - 64 and Testosterone free - 2.3 and total- 38 Cornelio ECHD- 167lb She was started on Activella last visit, she stopped medication after 2 weeks stating it made her symptoms worse. Samples of Bijuva provided and rx sent to pharmacy to check for barclay but medication was not covered by insurance. She was switched to Prempro but stopped d/t insomnia, tachycardia and worsening night sweats. Since she tolerated Bijuva well with improvement of symptoms but insurance did not cover will rx Prometrium 100mg and Estradiol 1mg to take in combination. Strongly advised to take medications together. She will call office if she is unable to get medication covered Entered by Dayana Marie LPN acting as scribe for Dr. Jennifer Worley. Signature: Dayana Marie LPN The documentation recorded by the scribe accurately reflects the service(s) I personally performed and the decisions I made. Signature: Jennifer Worley DO documented in this encounter [facility] 10-06-2023 Telephone encounter Note RX sent as requested. [facility] 10-06-2023 Miscellaneous Notes RX sent as requested. Her insurance will not cover Bijuva. Please Rx prempro 0.625/2.5mg 1 daily, #30, 11rf documented in this encounter [facility] 10-05-2023 Telephone encounter Note Her insurance will not cover Bijuva. Please Rx prempro 0.625/2.5mg 1 daily, #30, 11rf [facility] 07-10-2022 Hospital Discharg e instructions Patient [...] a pain support group. General instructions Take [id number] and prescription medicines only as told by [...] department or: Call your local emergency services (911 in the [place] Call a suicide crisis helpline, such as the National Suicide Prevention Lifeline at or 804 in the [place] This is open 24 hours a day in the [place] Text the Crisis Text Line at 240651 (in the [place] Summary Trigeminal neuralgia is [...] provider. Document Revised: 08/23/2021 Document Reviewed: 07/23/2021 [employer] Patient Education 2022 [employer]. Follow Up Care 07/10/2022 20:36:57 With:[employer] Address: [address] [place] [address]- Business (1) When:07/13/2022 21:14:03 With:Erik Menjivar Address: [address] [place] [address]- When:07/13/2022 21:14:00 [facility] 07-10-2022 Evaluation + Plan note Extrac rodrick [...] date 07/10/22 21:12:00 EDT, 07/10/22 21:12:00 EDT [facility] note[facility] assessment information available [facility] Work Phone: Evaluation note* Diagnosis Abdominal pain, generalized Rectal bleeding Hemorrhage of rectum and anus Gastroesophageal reflux disease, unspecified whether esophagitis present [facility] Abdominal pain, generalized- Primary Gastroesophageal reflux disease, unspecified whether esophagitis present Rectal bleeding Hemorrhage of rectum and anus Incarcerated ventral hernia Unspecified ventral hernia with obstruction Marijuana use Tobacco abuse Tobacco use disorder Encounter to establish care with new doctor [facility] Diagnosis Gastroesophageal reflux disease, unspecified whether esophagitis present [facility] Diagnosis Abdominal pain, generalized [facility] Diagnosis Hot flashes [facility] Diagnosis Mood swings- Primary Other specified episodic mood disorder Hot flashes Abnormal weight gain Night sweats Generalized hyperhidrosis Amenorrhea Absence of menstruation Hair loss Unspecified alopecia Anxiety, generalized (CMS/HCC) Other depression (CMS/HCC) [facility] Narrative No data available for this section [facility] on filedocumented in this encounter [facility] filedocumented in this encounter [facility] on filedocumented in this encounter [facility]ructions[facility] on filedocumented in this encounter [facility]ructionsNot on filedocumented in this encounter [facility] on filedocumented in this encounter [facility]ructionsNot on filedocumented in this encounter [facility] No data available for this section [facility] Summary Purpose Family History No Family History [...] section and content) DATE CREATED AUTHOR 07/31/2017 [place] DATE CREATED AUTHOR AUTHOR'S ORGANIZ ATION 08/01/2017 [facility] DATE CREATED AUTHOR AUTHOR'S ORGANIZ ATION 08/06/2017 [facility] DATE CREATED AUTHOR AUTHOR'S ORGANIZ ATION 07/20/2022 [facility] DATE CREATED AUTHOR AUTHOR'S ORGANIZ ATION 11/02/2023 [facility] EPIC DATE CREATED AUTHOR AUTHOR'S ORGANIZ ATION 01/22/2024 [facility] DATE CREATED AUTHOR AUTHOR'S ORGANIZ ATION 02/01/2024 [facility] Care Teams (unrecognized sec tion and content) Supervisor Soakers Relationship Specialty Start Date End Date Unallocated, [place] Provider, [address] [place] [address] PCP - General Family Medicine 07/22/23 Team Status: Active Member Role Status Dates [facility] Primary Care Provider Active Team Status: Inactive Member Role Status Dates Kandis Bush ([facility]) , LANDSCAPE ARCHITECTURE PROFESSOR Attending Provider Active Start: March 20, 2023 End: March 20, 2023 [facility] Primary [facility] Active Start: March 20, 2023 End: March 20, 2023 Goals (unrecognized section and content) Goals may be documented in a n alternate section Reason for Visit (unrecogniz ed section and content) Reason Comments Follow-up 1 month recall, last colon 11/26/23, 2 days clear liquid prep Reason Comments Med Refill Reason Comments Follow-up 6 week follow up moo d changes and weight gain. Stopped Prempro after 6 days- c/o insomnia, worsened hot flushes, increased mood swings, bloating. States Bijuva was the only Rx that has actually helped, but insurance did not cover it. FOR RECORDS PERTAINING TO PATIENTS WHO ARE [...] BE BASED ON THE PRIMARY CLINICAL RECORDS. [employer] [facility]. provides no warranty or guarantee of the accuracy or completeness of information in this document.
[2024-02-25 07:03] LABS: Cannabinoid Screen Urine POSITIVE (NEGATIVE); Phencyclidine Screen Urine NEGATIVE (NEGATIVE)
[2024-02-25 07:04] LABS: Amphetamine Screen Urine NEGATIVE (NEGATIVE); Barbiturates Screen Urine NEGATIVE (NEGATIVE); Benzodiazepines Screen Urine NEGATIVE (NEGATIVE); Buprenorphine Screen Urine POSITIVE (NEGATIVE); Cocaine Screen Urine NEGATIVE (NEGATIVE); Methadone Screen Urine NEGATIVE (NEGATIVE); Methamphetamines Screen Urine NEGATIVE (NEGATIVE); Opiate Screen Urine NEGATIVE (NEGATIVE); Oxycodone Screen Urine NEGATIVE (NEGATIVE); Tricyclic Antidepressant Urine NEGATIVE (NEGATIVE)
[2024-02-25 07:05] LABS: HCG Qualitative NEGATIVE (NEGATIVE); Internal Control Within Normal Limits
[2024-02-25] MEDS: LACTATED RINGER'S SOLUTION 1,000 ML 50 ML IV ×3 (07:13→11:25)
[2024-02-25] MEDS: CEFAZOLIN SODIUM/DEXTROSE,ISO 2 GM/50 ML PIGGYBACK IV (07:30)
[2024-02-25] MEDS: BUPIVACAINE LIPOSOME/PF 266 MG/13.3 ML VIAL INJ (07:45)
--- NOTE | 2024-02-25 09:16 | PM.GSPRC ---
Date of procedure: 02/25/24 Indications for Procedure: Incarcerated ventral hernia Pre-op diagnosis: Incarcerated ventral hernia Post-op diagnosis: same as pre-op Procedure: Robotic repair of incarcerated ventral hernia measuring 2.5 cm with mesh (transabdominal preperitoneal repair) Findings: Incarcerated ventral hernia with preperitoneal fat Implants: Mesh Anesthesia: ORI Surgeon: Paul Templeton Procedure Summary: After explaining all the risks benefits and alternatives to surgery patient agreed to informed consent and repair of the incarcerated ventral hernia. Patient was taken the operating suite placed in the supine position and given a general anesthetic by the medical radiation dosimetrist. The abdomen was prepped and draped usual sterile fashion. Timeout was taken and preoperative antibiotics were given. An OG tube was placed into the stomach preoperatively. A small incision was made in the left upper quadrant at Moore's point and a Veress needle with saline was placed into the abdominal cavity and saline drop test confirmed placement there and then carbon dioxide was attached and the abdomen was insufflated to 15 mm carbon oxide pressure. Next the Veress needle was removed and 8 mm port with visualization through the scope was put into the abdomen under direct visualization and through all the layers. Another 8 mm port was placed laterally in the left abdomen under direct visualization and another 8 mm port was placed in the left lower quadrant under direct visualization. Visualization was taken of the left upper quadrant to make sure there was no injury to the bowel and the Veress needle and there was none. The robot was then docked. Patient was positioned properly by anesthesia. The hernia was reduced with preperitoneal fat and then a window was made by incising the peritoneum laterally and taking it down and forming a pocket for a transabdominal preperitoneal repair. Hemostasis was maintained with cautery and bipolar cautery. The hernia was reduced and left a defect about 2.5 cm. This was closed with 0 V-Loc suture after lowering the pressure to 8 mmHg. Next once the preperitoneal pocket had been fashioned a piece of progrip mesh was inserted into the abdomen and unfolded and laid over the posterior rectus abdominis fascia flatly. It was made sure to lay as flat as possible. Then the pocket was closed laterally with 0 V-Loc suture in a continuous fashion. All ports were then removed. Incisions were closed with 4 Monocryl suture in running subcuticular fashion. Patient was given a block by anesthesia prior to beginning the procedure. Drywall Boardhanger: REEMA Patel Estimated blood loss (mL): 5 Specimens: None Complications: No Pathology: none sent Condition: stable Disposition: PACU
[2024-02-25] MEDS: HYDROMORPHONE HCL 0.5 MG/0.5 ML SYRINGE IV ×4 (09:46→11:12)
--- NOTE | 2024-02-25 11:15 | PC.NURSE ---
rating pain at an [address] Templeton give one more dose of dilaudid 0.5 mg .
== END 2024-02-25 12:45 | disposition home or self-care (01) ==
PROVIDERS: Anesthesiology; Visit Provider Surgery
PROC: (CPT 832; principal; 2024-02-25 07:30)
DX: K43.6 Other and unspecified ventral hernia with obstruction, without gangrene (principal); F17.210 Nicotine dependence, cigarettes, uncomplicated; K21.9 Gastro-esophageal reflux disease without esophagitis; E66.3 Overweight; B19.20 Unspecified viral hepatitis C without hepatic coma; Z68.29 Body mass index [BMI] 29.0-29.9, adult
CPT/HCPCS: 49594; 36415; 64488; 80307; 84703; C1781; J0131; J0665; J0690; J1100; J1171; J2250; J2405; J2704; J3010